=== PATIENT | female | born 1970 | race Caucasian/White ===

== ENCOUNTER 2017-08-18 19:25 | Emergency (ER) | payer BC, OTHER ==
[~2017-08-18] VITALS: Ht 160 cm; Wt 70.3 kg
[~2017-08-18 19:25] MED LIST: BIOTIN PO; CALCIUM600 MG PO; CELEXA20 MG PO; CRANBERRY PO; GABAPENTIN100 MG PO; KEFLEX500 MG PO; LEXAPRO10 MG PO; LOVENOX60 MG/0.6 SC; MULTIVITAMINS1 EAC7 PO; NORCO 7.5-3251 EACH PO; OMEPRAZOLE20 MG PO; VITAMIN D3 PO
[2017-08-18] MEDS ORDERED: KETOROLAC TROMETHAMINE 60 MG/2 ML VIAL IM ONE (20:30)
--- NOTE | 2017-08-18 21:36 | Diagnostic Imaging Report ---
EXAM: LOWER LEG RIGHT, AP and lateral, 2 views DATE: 08/18/2017 8:28 PM Time stamp on exam: 2035 INDICATION: Fall, right lower leg pain COMPARISON: None FINDINGS: BONES: No acute fractures. JOINTS: No malalignment. SOFT TISSUES: Normal IMPRESSION: No right tibia or fibular fracture. Signed by: Dr. Jacinta Armijo M.D. on 08/18/2017 9:32 PM
--- NOTE | 2017-08-18 21:37 | Diagnostic Imaging Report ---
EXAM: KNEE LEFT THREE VIEWS, AP, crosstable lateral and oblique, 3 views DATE: 08/18/2017 8:28 PM Time stamp on exam: 2036 hours INDICATION: Left knee pain COMPARISON: None FINDINGS: BONES: No acute fractures. JOINTS: No malalignment. SOFT TISSUES: Normal IMPRESSION: No evidence of a left knee fracture Signed by: Dr. Jacinta Armijo M.D. on 08/18/2017 9:34 PM
--- NOTE | 2017-08-18 21:40 | Diagnostic Imaging Report ---
EXAM: THORACIC SP 2V, AP and lateral DATE: 08/18/2017 8:28 PM Time stamp on exam: 2101 hours INDICATION: Fall, upper back pain COMPARISON: None FINDINGS: BONES: The alignment is within normal limits. No acute displaced fractures. No lytic or blastic lesions. DISCS: Mild multilevel degenerative changes. JOINTS: The facet joints are unremarkable. SOFT TISSUES: Surgical clips project over the left upper quadrant of the abdomen. IMPRESSION: No acute thoracic spine radiographic findings. Signed by: Dr. Jacinta Armijo M.D. on 08/18/2017 9:37 PM
--- NOTE | 2017-08-18 21:43 | Diagnostic Imaging Report ---
EXAM: HIP LEFT 2-3 VW (+/- PELVIS) DATE: 08/18/2017 9:27 PM Time stamp on exam: 2126 hours INDICATION: Fall, pain in left hip COMPARISON: None FINDINGS: BONES: No acute fractures. JOINTS: Facet arthropathy of the lower lumbar spine. Mild degenerative changes of the bilateral hips. SOFT TISSUES: Normal IMPRESSION: No evidence of a pelvic or left hip fracture. Signed by: Dr. Jacinta Armijo M.D. on 08/18/2017 9:40 PM
== END 2017-08-18 22:08 | disposition home or self-care (01) ==
LOC: ER 19:25
DX: S13.4XXA Sprain of ligaments of cervical spine, initial encounter (principal); W01.0XXA Fall on same level from slipping, tripping and stumbling without subsequent striking against object, initial encounter; Y92.89 Other specified places as the place of occurrence of the external cause; S80.02XA Contusion of left knee, initial encounter; S70.02XA Contusion of left hip, initial encounter; S80.11XA Contusion of right lower leg, initial encounter
CPT/HCPCS: 72072; 73502; 73562; 73590; 96372; 99283; J1885

== ENCOUNTER → 2017-09-19 | Outpatient (CLI) | payer BC ==
[2017-09-19 15:17] LABS: MAGNESIUM 1.8 MG/DL (1.3-2.1); PHOSPHORUS 3.5 MG/DL (2.3-4.7)
== END ==
LOC: LAB 14:40
PROVIDERS: ATTEND Family Medicine
DX: G47.62 Sleep related leg cramps (principal)
CPT/HCPCS: 36415; 83735; 84100

== ENCOUNTER → 2017-09-26 | Outpatient (CLI) | payer BC ==
--- NOTE | 2017-09-26 16:00 | Diagnostic Imaging Report ---
History: Chronic back pain Comparison studies: X-ray of the thoracic spine 08/18/2017 Technique: Cervical: Sagittal T2, T1 and IR, axial T1. Postcontrast axial and sagittal T1 and, axial T2. Thoracic: Sagittal T2, T1 and IR. Axial T1 and, axial T2. Intravenous contrast: None Findings: Alignment: Normal cervical lordosis. Normal thoracic kyphosis. No scoliosis. Cervicomedullary junction: Patent foramen magnum. No Chiari one malformation. Soft tissues: No T2 hyperintense inflammatory changes. Partially visualized 1.2 cm cyst at the left kidney upper pole. Spinal cord: Normal from the foramen magnum to the tip of the conus at T12-L1 Vertebrae: Normal in height and signal intensity. No fractures, infection or neoplasm. Degenerative changes: Cervical spine: C2-C3: No abnormalities. C3-C4: No abnormalities. C4-C5: Central disc osteophyte complex results in mild canal stenosis without significant foraminal narrowing C5-C6: Disc degeneration with loss of T2 signal. Central disc osteophyte complex with mild impression on the thecal sac and without significant foraminal narrowing C6-C7: Small central disc osteophyte, with mild impression on the thecal sac without significant foraminal narrowing C7-T1: No abnormalities. Thoracic spine: 1. At T4-T5 left central disc protrusion with patent canal and foramina. At T9-10 right central small disc protrusion indents the thecal sac without significant canal stenosis or foraminal narrowing. At T10-11 right subarticular disc fusion indents the thecal sac causing mild stenosis. 2. Disc degeneration with loss of T2 signal from T1 through T12. Multiple small Schmorl nodes at the medial lower thoracic spine. 3. Grossly patent canal and foramina. IMPRESSION: 1. No acute cervical or thoracic abnormality. 2. Small central disc osteophyte complex from C4 through C7 results in mild impression on the thecal sac without significant canal stenosis or foraminal narrowing. 3. Small disc protrusions at T4-5 T9-10 and T10-11 without significant canal stenosis or foraminal narrowing. Diffuse disc degeneration of the thoracic spine as detailed above. Signed by: DR Zeferino Beal M.D. on 09/26/2017 3:57 PM
== END ==
LOC: MRI 13:36
PROVIDERS: ATTEND Family Medicine
DX: G47.62 Sleep related leg cramps (principal); M54.12 Radiculopathy, cervical region; G62.9 Polyneuropathy, unspecified
CPT/HCPCS: 72141; 72146

== ENCOUNTER → 2017-10-01 | Outpatient (CLI) | payer BC ==
--- NOTE | 2017-10-01 13:15 | Diagnostic Imaging Report ---
TECHNIQUE: Magnetic resonance imaging of the LEFT HIP was performed WITHOUT injected contrast. HISTORY: Left hip pain COMPARISON: None available. FINDINGS: Bone: No focal or infiltrative bone marrow replacing abnormality. No osteonecrosis or acute fracture. Femoroacetabular Joint: Acetabular labrum: No displaced labral tear. Articular Cartilage: No focal defect. Muscle and tendons: Insertional tendinopathy of the gluteal tendons on the greater trochanter with partial tearing of the gluteus minimus. Soft tissues: Otherwise unremarkable. IMPRESSION: Insertional tendinopathy of the left gluteal tendons on the greater trochanter with partial tearing of the gluteus minimus. Signed by: Dr. Uriel Hall M.D. on 10/01/2017 1:11 PM
--- NOTE | 2017-10-02 09:00 | Diagnostic Imaging Report ---
Exam: Lumbar spine MRI without IV contrast History: Polyneuropathy. Comparison studies: None Technique: Sagittal, axial and coronal T2, sagittal T1, sagittal STIR and axial T2 FS. Intravenous contrast: None Findings: Number of lumbar vertebral bodies: 5. Alignment: Normal lordosis. Mild lumbar curvature convex to the left centered at L3-L4. Soft tissues: No T2 hyperintense inflammatory changes. A 1.4 cm T2 hyperintense lesion situated between the left kidney and spleen is most likely a cyst. Paraspinal muscles: No signal abnormalities. Well-preserved. No atrophic changes Lower thoracic cord: Normal in signal and morphology. The tip of the conus is at L1. Cauda equina: No masses. No arachnoiditis. Vertebrae: No compression fractures, infection or neoplasm. Mild sclerotic changes along the inferior T11 endplate along the supramarginal Schmorl's node. Degenerative changes: Included thoracic spine: Right central disc extrusion at T10-T11 and this the thecal sac and results in mild canal stenosis. L1-L2: No abnormalities L2-L3: No abnormalities L3-L4: Mild bilateral facet arthrosis. Patent canal and foramina. L4-L5: Symmetric disc bulge and mild to moderate bilateral facet arthrosis without significant canal or foraminal stenosis. L5-S1: Moderately degenerated disc with loss of disc height and loss of T2 disc signal. Grade 1 anterolisthesis of L5 on S1 with associated uncovered disc/disc bulge and moderate bilateral facet arthrosis with mild left foraminal stenosis. No canal or right foraminal stenosis. IMPRESSION: 1. Grade 1 L5 degenerative spondylolisthesis with moderately degenerated disc and mild left foraminal stenosis L5-S1. 2. Facet arthrosis from L3 to S1. 3. Mild canal stenosis at T10-T11 due to a disc protrusion. 4. No lumbar canal stenosis or nerve root impingement. Signed by: Dr. David Irizarry M.D. on 10/02/2017 8:56 AM
== END ==
LOC: MRI 09:31
PROVIDERS: ATTEND Family Medicine
DX: M25.552 Pain in left hip (principal); G47.62 Sleep related leg cramps; G62.9 Polyneuropathy, unspecified
CPT/HCPCS: 72148

== ENCOUNTER 2017-10-15 12:30 | Outpatient (RCR) | payer BC | END 2017-10-18 | LOC: PT 12:30 | PROVIDERS: ATTEND Neurological Surgery | DX: M51.24 Other intervertebral disc displacement, thoracic region (principal); M50.220 Other cervical disc displacement, mid-cervical region, unspecified level ==

== ENCOUNTER 2017-11-03 08:00 | Outpatient (RCR) | payer BC | END 2017-11-17 | LOC: PT 08:00 | PROVIDERS: ATTEND Neurological Surgery | DX: M51.24 Other intervertebral disc displacement, thoracic region (principal); M50.220 Other cervical disc displacement, mid-cervical region, unspecified level ==

== ENCOUNTER → 2018-02-25 | Outpatient (CLI) | payer BC ==
[2018-02-25 06:46] LABS: BASOPHILS % 0.5 % (0.0-1.0); EOSINOPHILS # (AUTO) 0.2 (0.0-0.4); EOSINOPHILS % 3.1 % (0.0-6.0); HEMATOCRIT 37.2 % (34.2-44.1); HEMOGLOBIN 11.8 g/dL (12.0-16.0); LYMPHOCYTES # (AUTO) 1.9 (1.0-3.2); LYMPHOCYTES % 31.2 % (18.0-39.1); MEAN CORPUSCULAR HEMOGLOBIN 28.5 pg (28-32); MEAN CORPUSCULAR HGB CONC 31.7 g/dL (31-35); MEAN CORPUSCULAR VOLUME 89.9 fL (81-99); MONOCYTES # (AUTO) 0.6 (0.2-0.8); MONOCYTES % 8.8 % (4.4-11.3); NEUTROPHILS # (AUTO) 3.5 (2.1-6.9); NEUTROPHILS % 56.2 % (38.7-80.0); PLATELET COUNT 364 x10e3/uL (140-360); RED BLOOD COUNT 4.14 x10e6/uL (3.6-5.1)
[2018-02-25 07:09] LABS: ALANINE AMINOTRANSFERASE 13 IU/L (0-55); ALBUMIN 3.6 g/dL (3.5-5.0); ALKALINE PHOSPHATASE 51 IU/L (40-150); ANION GAP 12.2 mmol/L (8-16); BLOOD UREA NITROGEN 19 mg/dL (7-26); BUN/CREATININE RATIO 25 (6-25); CALCIUM 9.2 mg/dL (8.4-10.2); CARBON DIOXIDE 29 mmol/L (22-29); CHLORIDE 107 mmol/L (98-107); CHOL/HDL RATIO 3.3 (3.0-3.6); CHOLESTEROL 239 MD/DL (0-199); CREATININE, SERUM 0.76 mg/dL (0.57-1.11); EST GLOMERULAR FILTRATION RATE > 60 ML/MIN (60-); GLUCOSE 87 mg/dL (74-118); HDL CHOLESTEROL 72 MG/DL (40-60); LDL CHOLESTEROL 139 MG/DL (60-130); POTASSIUM 4.2 mmol/L (3.5-5.1); SODIUM 144 mmol/L (136-145); TRIGLYCERIDES 142 MG/DL (0-149)
[2018-02-25 07:29] LABS: THYROID STIMULATING HORMONE 1.693 uIU/mL (0.350-4.940)
== END | disposition home or self-care (01) ==
LOC: LAB 06:27 → EDSTATUS 03-05 11:02
PROVIDERS: ATTEND Family Medicine
DX: F98.8 Other specified behavioral and emotional disorders with onset usually occurring in childhood and adolescence (principal); F32.9 Major depressive disorder, single episode, unspecified; E53.8 Deficiency of other specified B group vitamins; E55.9 Vitamin D deficiency, unspecified
CPT/HCPCS: 36415; 80053; 80061; 82306; 82607; 84443; 85025

== ENCOUNTER 2018-07-29 05:46 | Emergency (ER) | payer BC, OTHER ==
[~2018-07-29] VITALS: Ht 160 cm; Wt 70.3 kg
[2018-07-29] MEDS ORDERED: DEXAMETHASONE SOD PHOS 10 MG/1 ML VIAL IM ONE (06:00)
[2018-07-29 06:29] LABS: COLOR,URINE YELLOW (YELLOW)
[2018-07-29 06:30] LABS: CLARITY,URINE SL CLOUDY (CLEAR); LEUKOCYTE ESTERASE ,URINE TRACE (NEGATIVE); NITRITE,URINE NEGATIVE (NEGATIVE); PROTEIN,URINE DIPSTICK NEGATIVE (NEGATIVE)
[2018-07-29 06:31] LABS: BILIRUBIN,URINE NEGATIVE (NEGATIVE); KETONES,URINE TRACE (NEGATIVE); URINE UROBILINOGEN 0.2 mg/dL (0.2 - 1)
--- NOTE | 2018-07-29 06:39 | Diagnostic Imaging Report ---
CHEST 2 VIEWS, Technique: CHEST 2 VIEWS Comparison: None Clinical history: Cough, congestion DISCUSSION: Calcified right lung granuloma. Otherwise unremarkable appearance of the heart, mediastinum, lungs and pleural spaces. Clips overlie the left upper quadrant. IMPRESSION: No acute abnormality Signed by: Dr Sakina Oneal MD on 07/29/2018 6:35 AM
[2018-07-29] MEDS ORDERED: LIDOCAINE HCL 1% LOCAL INJ 20 ML VIAL ONE (06:40)
[2018-07-29 06:42] LABS: WBC,URINE (MAN) 21-50 /HPF (0-5)
[2018-07-29 06:43] LABS: BACTERIA,URINE FEW /HPF; EPITHELIAL CELLS,URINE MODERATE /LPF; MUCUS,URINE MODERATE (RARE)
[2018-07-29] MEDS ORDERED: CEFTRIAXONE SOD 1 GM VIAL IM ONE (06:45)
== END 2018-07-29 06:53 | disposition home or self-care (01) ==
LOC: ER 05:46
DX: R05 Cough (principal); R11.0 Nausea; R10.9 Unspecified abdominal pain; N30.91 Cystitis, unspecified with hematuria
CPT/HCPCS: 71046; 81001; 83518; 87070; 99283; J0696; J1100; J2001

== ENCOUNTER 2018-08-01 09:45 | Emergency (ER) | payer BC ==
[~2018-08-01] VITALS: Ht 160 cm; Wt 70.3 kg
--- NOTE | 2018-08-01 10:24 | NUR ---
PATIENT LEFT BEFORE SIGNING DISCHARGE INSTRUCTIONS. PATRICIA Presley SPOKE WITH HER IN TRIAGE REGARDING PLAN OF CARE
== END 2018-08-01 10:32 | disposition home or self-care (01) ==
LOC: ER 09:45
DX: R05 Cough (principal); J02.9 Acute pharyngitis, unspecified; J30.2 Other seasonal allergic rhinitis
CPT/HCPCS: 99282

== ENCOUNTER 2018-08-05 19:20 | Emergency (ER) | payer BC ==
[~2018-08-05] VITALS: Ht 160 cm; Wt 70.3 kg
[2018-08-05] MEDS ORDERED: SODIUM CHLORIDE 0.9% 1000ML 1,000 ML IV STA (19:22)
[2018-08-05] MEDS ORDERED: CEFTRIAXONE SOD 1 GM/NS 50 ML 50 ML IV ONE (19:45)
[2018-08-05 20:06] LABS: BASOPHILS % 0.4 % (0.0-1.0); EOSINOPHILS # (AUTO) 0.2 (0.0-0.4); EOSINOPHILS % 1.8 % (0.0-6.0); HEMATOCRIT 39.1 % (34.2-44.1); HEMOGLOBIN 12.2 g/dL (12.0-16.0); LYMPHOCYTES # (AUTO) 3.1 (1.0-3.2); LYMPHOCYTES % 36.1 % (18.0-39.1); MEAN CORPUSCULAR HEMOGLOBIN 28.3 pg (28-32); MEAN CORPUSCULAR HGB CONC 31.2 g/dL (31-35); MEAN CORPUSCULAR VOLUME 90.7 fL (81-99); MONOCYTES # (AUTO) 0.5 (0.2-0.8); MONOCYTES % 5.8 % (4.4-11.3); NEUTROPHILS # (AUTO) 4.7 (2.1-6.9); NEUTROPHILS % 55.1 % (38.7-80.0); PLATELET COUNT 356 x10e3/uL (140-360); RED BLOOD COUNT 4.31 x10e6/uL (3.6-5.1); RED CELL DISTRIBUTION WIDTH 14.6 % (11.7-14.4)
[2018-08-05] MEDS ORDERED: ONDANSETRON HCL INJ 2 MG/ML VIAL ONE (20:09)
[2018-08-05 20:12] LABS: BILIRUBIN,URINE NEGATIVE (NEGATIVE); CLARITY,URINE CLEAR (CLEAR); COLOR,URINE YELLOW (YELLOW); KETONES,URINE NEGATIVE (NEGATIVE); LEUKOCYTE ESTERASE ,URINE NEGATIVE (NEGATIVE); NITRITE,URINE NEGATIVE (NEGATIVE); PROTEIN,URINE DIPSTICK NEGATIVE (NEGATIVE); URINE UROBILINOGEN 0.2 mg/dL (0.2 - 1)
[2018-08-05 20:21] LABS: AMORPHOUS SEDIMENT,URINE MODERATE (FEW); BACTERIA,URINE MODERATE /HPF; MUCUS,URINE MODERATE (RARE)
[2018-08-05 20:25] LABS: ALANINE AMINOTRANSFERASE 17 IU/L (0-55); ALBUMIN 3.6 g/dL (3.5-5.0); ALBUMIN/GLOBULIN RATIO 1.1 (0.8-2.0); ALKALINE PHOSPHATASE 61 IU/L (40-150); ANION GAP 12.9 mmol/L (8-16); BLOOD UREA NITROGEN 16 mg/dL (7-26); BUN/CREATININE RATIO 20 (6-25); CALCIUM 8.7 mg/dL (8.4-10.2); CARBON DIOXIDE 29 mmol/L (22-29); CHLORIDE 101 mmol/L (98-107); CREATININE, SERUM 0.79 mg/dL (0.57-1.11); EST GLOMERULAR FILTRATION RATE > 60 ML/MIN (60-); GLUCOSE 80 mg/dL (74-118); POTASSIUM 3.9 mmol/L (3.5-5.1); SODIUM 139 mmol/L (136-145)
[2018-08-06] MEDS ORDERED: PHENAZOPYRIDINE HCL 100 MG TAB PO SCH (09:00)
== END 2018-08-05 21:33 | disposition home or self-care (01) ==
LOC: ER 19:20
DX: R33.9 Retention of urine, unspecified (principal); R33.0 Drug induced retention of urine; F41.9 Anxiety disorder, unspecified; Z98.84 Bariatric surgery status
CPT/HCPCS: 36415; 51700; 80053; 81001; 81025; 85025; 87086; 99283; J0696; J2405; J7030

== ENCOUNTER 2018-08-07 16:28 | Emergency (ER) | payer BC ==
[~2018-08-07] VITALS: Ht 160 cm; Wt 66.2 kg
== END 2018-08-07 16:51 | disposition home or self-care (01) ==
LOC: ER 16:28
DX: R30.0 Dysuria (principal); N34.2 Other urethritis
CPT/HCPCS: 99282

== ENCOUNTER → 2018-08-20 | Outpatient (CLI) | payer BC ==
--- NOTE | 2018-08-20 11:43 | Diagnostic Imaging Report ---
MRI of the cervical, thoracic and lumbar spine. History: Neck and low back pain, bladder incontinence Comparison studies: MRI of the thoracic spine 09/26/2017, MRI of the lumbar spine report 10/01/2017 Technique: Cervical spine: Thoracic spine: Sagittal T1, T2, STIR, axial T1 and T2 Lumbar spine: Sagittal T1, T2, STIR, axial T2 and spin density oblique Findings: Number of lumbar vertebral bodies:5. Alignment: Normal cervical lordosis. Normal thoracic kyphosis, anterolisthesis of L5 over S1. Normal remaining lumbar lordosis. Minimal lumbar levoscoliosis. Lower thoracic cord: Normal in signal and morphology. The tip of the conus is at T12-L1 . Soft tissues: No T2 hyperintense inflammatory changes. Partially visualized 1.2 cm cyst at the left kidney upper pole, stable Paraspinal muscles: Well preserved. Vertebrae: Normal in height and signal intensity. No compression fractures, infection or neoplasm. Degenerative changes: Cervical spine: At C4-C5, central disc osteophyte complex results in mild canal stenosis without significant foraminal narrowing, stable C5-C6, disc degeneration with loss of T2 signal. Central disc osteophyte complex with mild impression on the thecal sac and without significant foraminal narrowing, STIR C6-C7, small central disc osteophyte, with mild impression on the thecal sac without significant foraminal narrowing, stable Thoracic spine: At T4-T5, left central disc protrusion with patent canal and foramina, stable. At T9-10 right central small disc protrusion indents the thecal sac without significant canal stenosis or foraminal narrowing, stable. At T10-11, right subarticular disc extrusion indents the thecal sac causing mild stenosis, stable. Disc degeneration with loss of T2 signal from T1 through T12. Multiple small Schmorl nodes at the mid and lower thoracic spine, stable. Lumbar spine: Disk spaces: Mild disc degeneration with loss of T2 signal and decreased anterior intervertebral space at L5-S1. The remaining lumbar spine discs are normal in height and signal intensity. Disk herniations: None Spinal canal: Patent Foramina: Mild left foraminal narrowing at L5-S1 secondary to grade 1 anterolisthesis and disc bulge. Mild facet hypertrophy at the lower lumbar spine. IMPRESSION: Cervical spine: 1. No change from previous examination. 2. Disc degeneration from C4 through C7 without significant foraminal narrowing and mild canal stenosis at C5-6 and C6-7. Thoracic spine: 1. No significant change from previous examination. 2. Left central disc protrusion at T4-T5 with patent canal and foramina, stable. Right central small disc protrusion at T9-10 indents the thecal sac without significant canal stenosis or foraminal narrowing. Right subarticular disc extrusion indents the thecal sac causing mild right canal stenosis, stable. No spinal cord compression. 3. Stable degeneration with loss of T2 signal from T1 through T12. Multiple small Schmorl nodes at the medial lower thoracic spine. 4. Grossly patent canal and foramina. Lumbar spine: 1. No change from previous examination. 2. Mild left foraminal narrowing at L5-S1 secondary to mild grade 1 anterolisthesis and degenerative changes. The remaining canal and foramina are patent. 3. Moderate disc degeneration at L5-S1 without endplate changes. Signed by: DR Zeferino Beal M.D. on 08/20/2018 11:39 AM
== END ==
LOC: MAMMO 07:49
PROVIDERS: ATTEND Family Medicine
DX: M54.2 Cervicalgia (principal); M54.6 Pain in thoracic spine; M54.5 Low back pain; R32 Unspecified urinary incontinence; M51.44 Schmorl's nodes, thoracic region
CPT/HCPCS: 72141; 72146; 72148

== ENCOUNTER → 2018-12-02 | Outpatient (CLI) | payer BC ==
[2018-12-02 13:35] LABS: BASOPHILS % 0.5 % (0.0-1.0); EOSINOPHILS # (AUTO) 0.1 (0.0-0.4); EOSINOPHILS % 1.5 % (0.0-6.0); HEMATOCRIT 35.2 % (34.2-44.1); HEMOGLOBIN 10.8 g/dL (12.0-16.0); LYMPHOCYTES % 26.7 % (18.0-39.1); MEAN CORPUSCULAR HEMOGLOBIN 27.9 pg (28-32); MEAN CORPUSCULAR HGB CONC 30.7 g/dL (31-35); MONOCYTES # (AUTO) 0.6 (0.2-0.8); MONOCYTES % 7.9 % (4.4-11.3); NEUTROPHILS # (AUTO) 4.7 (2.1-6.9); PLATELET COUNT 348 x10e3/uL (140-360); RED BLOOD COUNT 3.87 x10e6/uL (3.6-5.1); RED CELL DISTRIBUTION WIDTH 14.9 % (11.7-14.4)
[2018-12-02 14:01] LABS: ALBUMIN 3.9 g/dL (3.5-5.0); ALBUMIN/GLOBULIN RATIO 1.1 (0.8-2.0); ANION GAP 12.7 mmol/L (8-16); CALCIUM 9.4 mg/dL (8.4-10.2); CREATININE, SERUM 1.02 mg/dL (0.57-1.11); POTASSIUM 3.7 mmol/L (3.5-5.1)
[2018-12-02 14:20] LABS: THYROID STIMULATING HORMONE 0.77 uIU/mL (0.350-4.940)
[2018-12-03 07:36] LABS: CHOL/HDL RATIO 3.2 (3.0-3.6)
== END ==
LOC: LAB 13:19
PROVIDERS: ATTEND Family Medicine
DX: R07.9 Chest pain, unspecified (principal); R42 Dizziness and giddiness
CPT/HCPCS: 36415; 80053; 80061; 82607; 83540; 84443; 84466; 85025

== ENCOUNTER → 2018-12-29 | Outpatient (CLI) | payer BC ==
--- NOTE | 2018-12-29 20:37 | Myoview Stress Test ---
DATE OF STUDY: 12/29/2018 09:16:00 Stress Test - Treadmill ONLY PROCEDURE INDICATION: Chest pain, palpitations, and syncope. INTERPRETING AND SUPERVISING PHYSICIAN: Navi Rose MD, Interventional Cardiology PROCEDURE PERFORMED: Single day rest/stress test technetium myocardial perfusion SPECT stress test. INTERPRETATION: At rest, blood pressure 111/72 and heart rate 58. Resting EKG shows sinus bradycardia with poor R-wave progression in precordial leads. After undergoing Harrison protocol treadmill stress test, at peak heart rate in stage IV of Harrison protocol was 140 beats per minute and blood pressure at peak was 186/121. The patient did not describe any exertional chest discomfort. EKG did not reveal any significant ST changes or arrhythmias throughout stress or recovery. 1 minute heart rate recovery was good. Myocardial perfusion reveals a small-sized mild severity apical anterior stress-induced perfusion defect. Gated images demonstrate preserved left ventricular systolic function, normal regional wall motion, and left ventricular ejection fraction of 67%. CONCLUSIONS: 1. Normal hemodynamic response to treadmill stress test. 2. Normal electrocardiographic response to treadmill stress. 3. Good exercise capacity. 4. Abnormal myocardial perfusion with small sized apical anterior stress-induced perfusion defect. 5. Preserved left ventricular systolic function with normal regional wall motion and left ventricular ejection fraction of 67%. Navi Rose MD AFV/MODL /[id number]
== END ==
LOC: NM 09:08
PROVIDERS: ATTEND Internal Medicine Cardiovascular Disease
DX: R07.9 Chest pain, unspecified (principal); R00.2 Palpitations; R55 Syncope and collapse
CPT/HCPCS: 78452; 93017; A9502

== ENCOUNTER 2019-01-18 18:34 | Observation (INO) | payer BC ==
[~2019-01-18] VITALS: Ht 160 cm; Wt 72.6 kg
[2019-01-18] MEDS ORDERED: SODIUM CHLORIDE 0.9% 1000ML 1,000 ML ONE (19:05)
[2019-01-18] MEDS ORDERED: SODIUM CHLORIDE 0.9% 1000ML 1,000 ML IV ONE (19:15)
[2019-01-18] MEDS ORDERED: KETOROLAC TROMETHAMINE 30 MG/ML VIAL IV NR (19:15)
[2019-01-18] MEDS ORDERED: ONDANSETRON HCL INJ 2MG/ML 2ML 2 MG/ML VIAL IV PRN ×2 (19:15→20:15)
[2019-01-18 19:35] LABS: BASOPHILS % 0.4 % (0.0-1.0); EOSINOPHILS # (AUTO) 0.2 (0.0-0.4); EOSINOPHILS % 3.1 % (0.0-6.0); HEMATOCRIT 34.3 % (34.2-44.1); HEMOGLOBIN 10.7 g/dL (12.0-16.0); LYMPHOCYTES # (AUTO) 2.6 (1.0-3.2); LYMPHOCYTES % 34.8 % (18.0-39.1); MEAN CORPUSCULAR HEMOGLOBIN 27.7 pg (28-32); MEAN CORPUSCULAR HGB CONC 31.2 g/dL (31-35); MEAN CORPUSCULAR VOLUME 88.9 fL (81-99); MONOCYTES # (AUTO) 0.5 (0.2-0.8); MONOCYTES % 7.3 % (4.4-11.3); PLATELET COUNT 336 x10e3/uL (140-360); RED BLOOD COUNT 3.86 x10e6/uL (3.6-5.1); RED CELL DISTRIBUTION WIDTH 14.9 % (11.7-14.4)
--- NOTE | 2019-01-18 19:50 | Diagnostic Imaging Report ---
EXAMINATION: CHEST 2 VIEWS INDICATION: chest pain COMPARISON: Chest 07/29/2018 FINDINGS: PA and lateral views TUBES and LINES: None. LUNGS: Lungs are well inflated. Calcified granuloma right upper lobe.. There is no evidence of pneumonia or pulmonary edema. PLEURA: No pleural effusion or pneumothorax. HEART AND MEDIASTINUM: The cardiomediastinal silhouette is unremarkable. BONES AND SOFT TISSUES: No acute osseous lesion. Soft tissues are unremarkable. UPPER ABDOMEN: No free air under the diaphragm. Surgical clips in the left upper abdomen. IMPRESSION: No acute thoracic abnormality. Signed by: Basil Aguilar MD on 01/18/2019 7:46 PM
[2019-01-18 19:51] LABS: ALANINE AMINOTRANSFERASE 13 IU/L (0-55); ALBUMIN 4.1 g/dL (3.5-5.0); ALBUMIN/GLOBULIN RATIO 1.3 (0.8-2.0); ALKALINE PHOSPHATASE 53 IU/L (40-150); ANION GAP 13.4 mmol/L (8-16); BLOOD UREA NITROGEN 18 mg/dL (7-26); BUN/CREATININE RATIO 22 (6-25); CALCIUM 9.2 mg/dL (8.4-10.2); CARBON DIOXIDE 27 mmol/L (22-29); CHLORIDE 103 mmol/L (98-107); CREATININE, SERUM 0.81 mg/dL (0.57-1.11); EST GLOMERULAR FILTRATION RATE > 60 ML/MIN (60-); GLUCOSE 91 mg/dL (74-118); POTASSIUM 3.4 mmol/L (3.5-5.1); SODIUM 140 mmol/L (136-145)
--- NOTE | 2019-01-18 20:01 | Diagnostic Imaging Report ---
History: Headaches. Comparison studies: None Technique: Axial images were obtained from the skull base to the vertex. Coronal and sagittal reconstructions obtained from the axial data. Dose modulation, iterative reconstruction, and/or weight based adjustment of the mA/kV was utilized to reduce the radiation dose to as low as reasonably achievable. Findings: Scalp/skull: No abnormalities. No fractures, blastic or lytic lesions. Extra-axial spaces: No masses. No fluid collections. Brain sulci: Appropriate for age. Ventricles: Normal in size and configuration. No hydrocephalus. Parenchyma: No abnormal densities. No masses, hemorrhage, acute or chronic cortical vascular insults. Sellar/suprasellar region: No abnormalities Craniocervical junction: Patent foramen magnum. No Chiari one malformation. IMPRESSION: No abnormalities . Signed by: DR Zeferino Beal M.D. on 01/18/2019 7:58 PM
[2019-01-18 20:40] LABS: CREATINE KINASE MB 1.1 ng/mL (0-5.0)
[2019-01-18] MEDS ORDERED: ONDANSETRON HCL INJ 2MG/ML 2ML 2 MG/ML VIAL IV NR (22:00)
[2019-01-18] MEDS ORDERED: MORPHINE SULFATE INJ 4 MG/ML INJ 1ML IV PRN (22:00)
[2019-01-18] MEDS: SODIUM CHLORIDE 0.9% 1000ML 1,000 ML IV SCH (22:17)
[2019-01-18 22:33] VITALS: BP 119/75
--- NOTE | 2019-01-18 22:33 | NUR ---
Patient arrived via stretcher from ER. Oriented to room, environment and call light. Instructed to call for onset of pain or SOB. Call light within reach. Will continue to monitor.
[2019-01-18 22:49] VITALS: BP 117/75
[2019-01-19] VITALS (10 sets, daily range): BP systolic 86–128; BP diastolic 52–75
--- NOTE | 2019-01-19 01:44 | NUR ---
Tele called and reported patient HR dropped to 46BPM. Patient asymptomatic, no SOB. Will continue to monitor.
--- NOTE | 2019-01-19 03:15 | NUR ---
Patient C/O pain to chest, as dull pressure, 5/10. Called MD Dr Chavez and notified. BP 121/75,HR 45-52. New orders received. Patient updated on POC.
[2019-01-19] MEDS: MORPHINE SULFATE INJ 4 MG/ML INJ 1ML IV PRN ×3 (03:20→13:46)
[2019-01-19] MEDS: ONDANSETRON HCL INJ 2MG/ML 2ML 2 MG/ML VIAL IV PRN ×3 (03:20→13:46)
[2019-01-19 03:53] LABS: CREATINE KINASE 78 IU/L (29-168)
[2019-01-19] MEDS ORDERED: ADDERALL 15 MG15 MG PO (04:02)
[2019-01-19] MEDS ORDERED: VITAMIN E400 UNI1 PO (04:02)
[2019-01-19] MEDS ORDERED: WELLBUTRIN SR150 MG PO (04:02)
[2019-01-19] MEDS ORDERED: BENADRYL25 M1 PO (04:02)
[2019-01-19] MEDS ORDERED: METOPROLOL TART25 MG PO (04:02)
[2019-01-19] MEDS ORDERED: NORCO 7.5-3251 EACH PO (04:02)
[2019-01-19] MEDS ORDERED: APPLE CIDER VI1 EAC1 PO (04:02)
[2019-01-19] MEDS ORDERED: FOLIC ACID1 MG PO (04:02)
[2019-01-19] MEDS ORDERED: SENNOSIDES8.6 MG PO (04:02)
[2019-01-19] MEDS ORDERED: GINGER PO (04:02)
[2019-01-19] MEDS ORDERED: COLACE100 MG PO (04:02)
[2019-01-19] MEDS ORDERED: METHACARBAMOL PO (04:02)
[2019-01-19] MEDS ORDERED: ASPIRIN EC81 MG PO (04:02)
[2019-01-19] MEDS ORDERED: tumeric curcumin PO (04:02)
[2019-01-19] MEDS: SODIUM CHLORIDE 0.9% 1000ML 1,000 ML IV SCH ×2 (04:04→18:46)
--- NOTE | 2019-01-19 06:28 | NUR ---
Spoke with Dr Calderon regarding consult: Would like to do heart cath today if patient agreeable; then NPO for breakfast and will see this morning.
--- NOTE | 2019-01-19 06:30 | NUR ---
Patient in bed resting. No issues or concerns. Updated on POC for NPO for breakfast. Call light within reach. Will continue to monitor.
--- NOTE | 2019-01-19 07:00 | NUR ---
Call from Dr Calderon: New orders received.
--- NOTE | 2019-01-19 08:36 | NUR ---
Informed consent obtained for heart cath today per MD Calderon. Pt aware of plan of care. Pt stated procedure explained to her. A&O x3, resp WNL.
[2019-01-19 11:02] LABS: CREATINE KINASE 73 IU/L (29-168)
[2019-01-19] MEDS ORDERED: HYDROCODONE/APAP 10MG-325MG TAB PO PRN (12:45)
--- NOTE | 2019-01-19 13:01 | NUR ---
DISCUSSED IN BARRIER ROUNDS, PT HAVING RT HEART CATH BY DR SÁNCHEZ AT 230
--- NOTE | 2019-01-19 14:00 | NUR ---
Visit made by the Spiritual Care Department Pastoral Visitor, Karoline Gonzalez. PV provided pastoral presence, prayer, hospitality, and supportive listening. Pastoral Visitor informed pt/family of the scope of [facility] [employer] and availability. MALKA FERGUSON [employer] Spiritual Care Department O: [phone] Pager: [phone] ([phone] number calling from)
[2019-01-19] MEDS ORDERED: LIDOCAINE HCL 2% LOCAL 20 ML VIAL ONE ×2 (15:56→16:08)
[2019-01-19] MEDS ORDERED: HEPARIN SOD/SOD CHLORIDE 2,000 ML ONE (15:57)
[2019-01-19] MEDS ORDERED: IOPAMIDOL 370 MG/ML 200 ML INFUS..BTL INJ ONE ×2 (15:57→16:08)
[2019-01-19] MEDS ORDERED: MIDAZOLAM HCL 2 MG/2 ML VIAL ONE (16:07)
[2019-01-19] MEDS ORDERED: VERAPAMIL HCL 2.5 MG/ML 2 ML VIAL ONE (16:07)
[2019-01-19] MEDS ORDERED: FENTANYL CITRATE/PF 100MCG/2 ML INJ ONE (16:07)
[2019-01-19] MEDS ORDERED: HEPARIN SOD (PORCINE) 1000 UNIT/ML 30ML ONE (16:07)
[2019-01-19] MEDS ORDERED: NITROGLYCERIN/D5W 200 MCG/ML 250 ML ONE (16:08)
[2019-01-19] MEDS ORDERED: SODIUM CHLORIDE 0.9% 1000ML 1,000 ML ONE (16:08)
--- NOTE | 2019-01-19 16:54 | Consultation ---
DATE OF CONSULTATION: 01/19/2019 Cardiology Consultation CONSULTING PHYSICIAN: Navi Rose MD, Interventional Cardiology. REASON FOR CONSULTATION: Chest pain. HISTORY OF PRESENT ILLNESS: Ms. Lim is a pleasant 48-year-old woman with history of migraines, episodes of palpitations, atypical chest pain, fleeting in nature, sharp, lasting seconds at a time, radiating to back, mild to moderate severity with associated lightheadedness episodes occurring while driving in the car and most recently while she was having an episode of migraine, for which she came into the hospital with severe headaches, nausea, and status post Imitrex now. She continues to feel uncomfortable with her headache care. Her chest discomfort has resolved. Serial cardiac enzymes have been negative. Her EKG shows sinus bradycardia, otherwise no significant abnormalities. On telemetry, she reveals sinus bradycardia into the 50s. No arrhythmias observed. She had recent outpatient echocardiogram revealing preserved left ventricular systolic function. No significant valvular abnormalities. She had rare PVCs that seemed associated to the patient's reported symptoms on site monitor and an asymptomatic event of short run of paroxysmal atrial tachycardia. We discussed the possibility of proceeding with a loop recorder should symptoms persist particularly from palpitation or lightheaded standpoint. We had discussed coronary angiogram versus proceeding with further assessment absolute PET myocardial perfusion given atypical chest discomfort and abnormal stress test revealing preserved left ventricular systolic function with LVEF 67% and apical anterior stress-induced perfusion defects or ischemia. We had agreed on proceeding with PET scan, which was being pre-authorized with insurance, however, returned with this discomfort and headache and chest pain on this admission given findings. She would like to proceed with coronary angiogram. Indications, alternatives, risks and benefits have been discussed with the patient as well as family members, who were at bedside. All questions have been answered. The patient voices understanding and agrees to proceed. REVIEW OF SYSTEMS: A 12-system review negative except for as noted above. ALLERGIES: TRAMADOL AND MACROBID. PAST MEDICAL HISTORY: Obesity status post gastric sleeve, migraines. PAST SURGICAL HISTORY: Gastric sleeve. FAMILY HISTORY: Father with CAD and stents, hypertension. Father and grandmother both with heart disease. Has two brothers and one sister. SOCIAL HISTORY: Former smoker, quit in 2016. Otherwise denies binge drinking or drugs. PHYSICAL EXAMINATION: VITAL SIGNS: Temperature 96.5, heart rate 53, respiratory rate 18, blood pressure 101/53, O2 saturation 98% on room air. GENERAL: No acute distress. Alert and active. NECK: No JVD. CHEST: Clear to auscultation. CARDIOVASCULAR: Regular rate and rhythm. Normal S1 and S2. No S3, no S4. No murmurs or rubs. ABDOMEN: Soft, nontender, nondistended. EXTREMITIES: No cyanosis, clubbing, or edema. Warm distal extremities. CARDIOVASCULAR MEDICATIONS: Reviewed. The patient is currently on morphine p.r.n., Zofran p.r.n., saline hydration 75 mL an hour. LABORATORY DATA: Studies reviewed. White blood cell 7.4, hemoglobin 10.7, platelets 336. D-dimer 0.18. Serial cardiac enzymes negative x3. BNP is 26.7. Sodium 140, potassium 3.4, chloride 103, bicarbonate 27, BUN 18, creatinine 0.8, glucose 91, calcium 9.2, total bilirubin 0.3, AST 16, ALT 13, alkaline phosphatase 53, total protein 7.2, albumin 4.1. CT head, no abnormalities and chest x-ray no acute thoracic abnormality. ASSESSMENT: 1. Atypical chest pain with abnormal stress test concerning for coronary artery disease etiology, is here with episode of migraines and atypical chest pain, marked bradycardia and a history of rare PVCs and asymptomatic paroxysmal atrial tachycardia on outpatient telemetry. 2. Preserved left ventricular systolic function. RECOMMENDATIONS: 1. Proceed with coronary angiography and possible coronary intervention. 2. Continue management of migraine per primary services expertise. 3. The patient is anemic. Suggest further evaluation. Navi Rose MD AFJoon/MEGAN /[id number] MTDD
--- NOTE | 2019-01-19 18:30 | NUR ---
Pt meets transfer criteria. right radial/arm assessed for s/s of complication and presence of hematoma. Arm warm, dry, no discolor, and pulses present. Pt denies pain, sob, or need at this time. Family at bedside. Pt tolerated recovery w/o incident. Does posses persistent PATEL that has been present x 2weeks w/o relief per patient. + neurovascular function maintained to right hand at all times. Report provided to Luz PRABHAKAR, review of procedural findings and medications given. Patient drowsy, easily aroused. maintains airway and room air saturations of 98-99%. No gross issues of pressure, pain, pallor or dysrhythmia. IV site patent with NS 0.9% at 100ml/hr by dial-flow. patient hemodynamically stable with hemostasis right radial post TR band removal. dressing CDI w/o s/s of bleeding. patient transferred to [facility] on telemetry w/o incident by [facility] staff - cgf Procedure: DX LHC w/ coronary angiography and LV ventriclogram Sheath puller: Dr. Calderon TR band 10ml Meds Given Intra-Procedure Sedatives Versed - 2 mg Fentanyl - 50 mcg Radial Cocktail IA Heparin - 3000 Units Verapamil - 2.5 mg Nitro - 200mcg Alteplase Fluids Input - 250 Output - dtv Contrast Isovue 370 -60ml
--- NOTE | 2019-01-19 19:00 | NUR ---
Report and walking rounds completed. Patient in bed with family at bedside. Site to right wrist, CDI and no bleeding noted. No issues or concerns. Call light within reach. Will continue to monitor.
--- NOTE | 2019-01-19 19:11 | Operative Report ---
DATE OF PROCEDURE: 01/19/2019 SURGEON: Navi Rose MD PROCEDURE INDICATION: Chest pain concerning for angina pectoris in the setting of previous abnormal stress test with apical anterior segment ischemia and preserved left ventricular systolic function. PROCEDURES PERFORMED: 1. Left heart catheterization. 2. Selective coronary angiogram. ESTIMATED BLOOD LOSS: Less than 15 mL. PROCEDURE COMPLICATIONS: None. PROCEDURE SUMMARY: After consent was obtained, the patient was prepped and draped in a sterile fashion. The right radial site was locally infiltrated with 2% lidocaine and using a single anterior stick, the right radial artery was accessed and a 5- Singaporean outer diameter slender sheath was advanced over wire. A cocktail of 2.5 mg of verapamil, 300 mcg of nitroglycerin, and 5000 units of heparin were administered via the sheath and TIG catheter, 5-Singaporean was advanced over J-tip wire to the proximal ascending aorta were the catheter was used for selective engagement of the left main, as well as the right coronary artery performing angiography to each of these vessels in multiple orthogonal views. Afterwards a pigtail catheter was exchanged over an exchange length J- wire and a pigtail catheter used to cross the aortic valve for hemodynamic pressure and left ventriculogram, this was a 5-Singaporean catheter. At the end of the procedure, TR band was applied to the right radial site achieving adequate hemostasis. FINDINGS: 1. LV pressure was 113/9 with end-diastolic pressure of 17 to 19. 2. Aortic pressure is 110/70. 3. LV-gram reveals preserved left ventricular systolic function, normal regional wall motion, and left ventricular ejection fraction of 55% to 60%. 4. Left main is large in caliber with luminal irregularities giving an LAD and a circumflex. 5. LAD is large in caliber with luminal irregularities. It gives two diagonals and multiple septal perforators. Distal LAD is overall small in caliber and ends in the apical anterior LV segment of myocardium. 6. Circumflex has luminal irregularities. It gives three obtuse marginals of small to medium caliber left posterolateral branch. 7. Right coronary artery is dominant giving conus branch in the proximal segment two RV marginals in the distal segment. There is a focal area of 30% stenosis and the RCA gives terminal RPDA and RPLV both small to medium in caliber. The RPDA goes onto the apex where it co-perfuses the LV apex along with the LAD. Given abnormal stress test findings with apical anterior ischemia, it is felt that the co-perfusion of the apex in association with small caliber distal LAD and underlying mild possibly diffuse CAD may contribute to this abnormal finding. CONCLUSION: 1. Mild CAD. 2. LVEDP, mildly elevated. RECOMMENDATIONS: 1. Wean TR band. 2. Aspirin 81 mg daily, however, pending anemia evaluation. 3. Initiate statin therapy at moderate potency and up titrate as tolerated by patient over outpatient serial followup. 4. I have discussed with patient resting asymptomatic sinus bradycardia and previous rare PVCs and previous asymptomatic spells of paroxysmal atrial tachycardia noted on monitoring as outpatient. If any presyncopal or syncopal spells occur, I have offered further evaluation including implantable loop recorder, so far conservative management is preferred. MD IGGY Mendoza/MEGAN /[id number] MTDD
[2019-01-19] MEDS ORDERED: DIPHENHYDRAMINE HCL 25 MG CAP PO PRN (20:45)
[2019-01-19] MEDS ORDERED: ATORVASTATIN 40 MG TAB PO SCH (21:00)
--- NOTE | 2019-01-20 00:45 | NUR ---
Report given to Irma RN for transfer in care. Patient A&Ox3, mother at bedside. Call light within reach.
[2019-01-20 01:12] VITALS: BP 107/51
--- NOTE | 2019-01-20 01:20 | NUR ---
PATIENT IS ASLEEP, SHE'S EASY TO AROUSE. NO RESPIRATORY DISTRESS OBSERVED, SHE DENIES CHEST PAIN. CALL LIGHT WITHIN EASY REACH, SHE'S INSTRUCTED TO CALL FOR ASSISTANCE NEEDED.
[2019-01-20 04:30] VITALS: BP 112/50
--- NOTE | 2019-01-20 04:30 | NUR ---
CONDITION STABLE WITHOUT ACUTE DISTRESS, PATIENT DENIES CHEST PAIN.
[2019-01-20] MEDS: SODIUM CHLORIDE 0.9% 1000ML 1,000 ML IV SCH (06:00)
--- NOTE | 2019-01-20 07:00 | NUR ---
walking rounds made with slot shift manager nurse, patient aware of change and in no distress. call warren within reach and bed in lowest position.
[2019-01-20 08:00] VITALS: BP 111/72
[2019-01-20 08:10] VITALS: BP 111/72
--- NOTE | 2019-01-20 08:10 | NUR ---
patient alert and oriented with mother at bedside. discharge instructions given at this time, patient verbalized understanding. IV discontinued, catheter in tact and small dressing applied. patient refused wheelchair assistance and will ambulate with assist to personal auto for mother to drive home.
[2019-01-20] MEDS ORDERED: ASPIRIN 81 MG CHEW TAB PO SCH (09:00)
--- NOTE | 2019-01-21 06:47 | Discharge Summary ---
DISCHARGE DIAGNOSIS: Chest pain, rule out myocardial infarction. HISTORY OF PRESENT ILLNESS: The patient is a 48-year-old lady, who presented with some chest pain. She did rule out for SD, was seen by Dr. Calderon, her shovel operator, who actually went ahead and performed a cardiac cath that showed nonobstructive disease. Postprocedure, the patient is doing well, having no further evidence of chest pain, so she was able to be discharged home with continuation of her home medications and follow up with Dr. Calderon in a couple of weeks. Please see hospital chart for full details. MD NELL Mcgowan/MEGAN /[id number]
== END 2019-01-20 08:27 | disposition home or self-care (01) ==
LOC: ER 18:34 → ERHOLD 20:26 → IMCU 22:33
PROVIDERS: ADMIT Internal Medicine; ATTEND Internal Medicine
DX: R07.89 Other chest pain (principal); I25.10 Atherosclerotic heart disease of native coronary artery without angina pectoris; I11.0 Hypertensive heart disease with heart failure; I50.9 Heart failure, unspecified; Z98.84 Bariatric surgery status; Z88.1 Allergy status to other antibiotic agents; Z88.8 Allergy status to other drugs, medicaments and biological substances; E87.6 Hypokalemia; D64.9 Anemia, unspecified; Z82.49 Family history of ischemic heart disease and other diseases of the circulatory system; Z87.891 Personal history of nicotine dependence; G43.909 Migraine, unspecified, not intractable, without status migrainosus; R00.1 Bradycardia, unspecified; E78.00 Pure hypercholesterolemia, unspecified
CPT/HCPCS: 36415 ×2; 70450; 71046; 80053; 82550 ×2; 82553 ×2; 83880; 84484 ×2; 85025; 85379; 93005; 93458; 99284; C1887; G0378 ×3; J1644; J1885; J2001; J2250; J2270 ×2; J2405 ×2; J7030 ×3; Q9967; J3010

== ENCOUNTER → 2019-08-25 | Outpatient (CLI) | payer BC ==
[~2019-08-25] MED LIST changes: +ADDERALL 15 MG15 MG PO; +APPLE CIDER VI1 EAC1 PO; +ASPIRIN EC81 MG PO; +BENADRYL25 M1 PO; +COLACE100 MG PO; +FOLIC ACID1 MG PO; +GINGER PO; +METHACARBAMOL PO; +METOPROLOL TART25 MG PO; +SENNOSIDES8.6 MG PO; +VITAMIN E400 UNI1 PO; +WELLBUTRIN SR150 MG PO; +tumeric curcumin PO
--- NOTE | 2019-08-25 15:42 | Diagnostic Imaging Report ---
EXAMINATION: MRI of the cervical spine without contrast HISTORY: Neck pain, cervical radiculopathy, headaches for the last month. COMPARISON: Cervical spine MRI 08/20/2018 TECHNIQUE: Sagittal T1, T2, STIR; axial T2, gradient echo. FINDINGS: Curvature: Subtle reversal of the cervical lordosis centered at C5-C6 which may be related to muscle spasm or positional. Vertebrae: No evidence of neoplasm, infection, or fracture. Foramen magnum: No mass, Chiari malformation, or basilar invagination. Spinal Cord: Normal size and signal intensity. Soft Tissues: Unremarkable. Degenerative changes: C1-C2: Unremarkable. C2-C3: Unremarkable. C3-C4: Unremarkable. C4-C5: Mild symmetric disc bulge with a small posterior central annular fissure. No spinal canal or neural foraminal stenosis. C5-C6: New approximately 5 mm AP diameter slightly inferiorly migrated disc extrusion, resulting in moderate canal stenoses and flattening of the ventral spinal cord without abnormal signal of the cord. Mild uncovertebral arthrosis. Mild left foraminal narrowing. C6-C7: Minimal symmetric disc bulge with tiny 2 mm AP diameter central disc protrusion, no significant canal or foraminal stenosis. No spinal cord compression. C7-T1: Unremarkable. IMPRESSION: 1. New central disc herniation at C5-C6 resulting in moderate canal stenoses without with flattening of the ventral cord but no abnormal signal within the cord. 2. Stable mild degenerative changes at C4-C5 and C6-7 without significant spinal canal or neural foraminal stenosis. Signed by: Dr. Yina Dias M.D. on 08/25/2019 3:40 PM
== END ==
LOC: MRI 06:33
PROVIDERS: ATTEND Family Medicine
DX: M54.12 Radiculopathy, cervical region (principal)
CPT/HCPCS: 72141

== ENCOUNTER 2019-09-09 06:05 | Observation (INO) | payer BC ==
[2019-09-08 14:05] LABS: BASOPHILS % 0.5 % (0.0-1.0); EOSINOPHILS # (AUTO) 0.1 (0.0-0.4); EOSINOPHILS % 1.8 % (0.0-6.0); HEMOGLOBIN 10.3 g/dL (12.0-16.0); LYMPHOCYTES # (AUTO) 1.7 (1.0-3.2); LYMPHOCYTES % 22.9 % (18.0-39.1); MEAN CORPUSCULAR HEMOGLOBIN 27.5 pg (28-32); MEAN CORPUSCULAR HGB CONC 31.2 g/dL (31-35); MONOCYTES # (AUTO) 0.5 (0.2-0.8); MONOCYTES % 6.6 % (4.4-11.3); NEUTROPHILS # (AUTO) 5.1 (2.1-6.9); NEUTROPHILS % 67.7 % (38.7-80.0); PLATELET COUNT 344 x10e3/uL (140-360); RED BLOOD COUNT 3.75 x10e6/uL (3.6-5.1); RED CELL DISTRIBUTION WIDTH 15.6 % (11.7-14.4)
--- NOTE | 2019-09-08 14:11 | Diagnostic Imaging Report ---
EXAM: CHEST 2 VIEWS DATE: 09/08/2019 1:29 PM INDICATION: Preoperative, preadmission evaluation COMPARISON: 01/18/2019 FINDINGS: The trachea is midline. The lungs are symmetrically expanded without evidence for large focal consolidation, pneumothorax, or significant pleural effusion. A stable calcified granuloma is noted within the right upper/midlung zone. The cardiomediastinal silhouette and pulmonary vasculature are within normal limits. No acute osseous abnormality is identified. The surrounding soft tissues are unremarkable. IMPRESSION: No acute cardiopulmonary process identified. Signed by: Dr. Adan Herrera MD on 09/08/2019 2:08 PM
[2019-09-08 14:12] LABS: INR 0.94; PROTHROMBIN TIME 13.1 seconds (11.9-14.5)
[2019-09-08 14:13] LABS: PARTIAL THROMBOPLASTIN TIME 27.4 seconds (23.8-35.5)
[2019-09-08 14:16] LABS: ANION GAP 9.9 mmol/L (8-16); BLOOD UREA NITROGEN 15 mg/dL (7-26); BUN/CREATININE RATIO 20 (6-25); CALCIUM 9.2 mg/dL (8.4-10.2); CARBON DIOXIDE 30 mmol/L (22-29); CHLORIDE 104 mmol/L (98-107); CREATININE, SERUM 0.76 mg/dL (0.57-1.11); EST GLOMERULAR FILTRATION RATE > 60 ML/MIN (60-); GLUCOSE 87 mg/dL (74-118); POTASSIUM 3.9 mmol/L (3.5-5.1); SODIUM 140 mmol/L (136-145)
[~2019-09-09] VITALS: Ht 160 cm; Wt 67.1 kg
[~2019-09-09 06:05] MED LIST changes: +ATORVASTATIN CA20 MG PO; +CALCIUM PO; +NORCO 10-325 T1 EACH PO
[2019-09-09] MEDS ORDERED: BACITRACIN 50,000 UNIT VIAL ONE (06:41)
[2019-09-09] MEDS ORDERED: THROMBIN FOR SOLN 5,000 UNIT VIAL ONE (06:41)
[2019-09-09] MEDS ORDERED: LIDOCAINE 1% W/EPINEPHRINE 20 ML VIAL ONE (06:41)
[2019-09-09] MEDS ORDERED: CEFAZOLIN SOD 1 GM/NS 50ML 50 ML IV ONE (06:44)
[2019-09-09] MEDS ORDERED: LIDOCAINE HCL (LTA) 4 ML SOLN ONE (07:24)
[2019-09-09] MEDS: LACTATED RINGER'S 1,000 ML IV SCH ×2 (09:50→18:10)
[2019-09-09] MEDS ORDERED: ZOLPIDEM TARTRATE 5 MG TAB PO PRN (10:00)
[2019-09-09] MEDS ORDERED: CEPACOL SORE THROAT LOZENGES PO PRN (10:00)
[2019-09-09] MEDS ORDERED: PROMETHAZINE HCL (IM) 25 MG/ML VIAL IM PRN (10:00)
[2019-09-09] MEDS ORDERED: MORPHINE SULFATE 5 MG/ML VIAL IM PRN (10:00)
[2019-09-09] MEDS ORDERED: MAGNESIUM/ALUMINUM/SIMETHICONE 30 ML UDC PO PRN (10:00)
[2019-09-09] MEDS ORDERED: ACETAMINOPHEN 325 MG TAB PO PRN (10:00)
[2019-09-09] MEDS ORDERED: HYDROMORPHONE 1MG/1ML INJ ONE ×2 (10:08→10:26)
[2019-09-09] MEDS ORDERED: FENTANYL CITRATE/PF 100MCG/2 ML INJ ONE ×2 (10:47→14:24)
--- NOTE | 2019-09-09 12:08 | NUR ---
ARRIVED VIA STRETCHER FROM PACU, AA&0X3, 3LNC, SOFT COLLAR IN PLACE, NO BLEEDING NOTED AT THIS TIME, IV TO LEFT WRIST INTACT, DTV, BILAT SCD'S AND GA IN PLACE, PAIN 6/10 AT THIS TIME, PER PACU NURSE, ALREADY MEDICATED, CALL LIGHT WITHIN REACH
[2019-09-09 12:32] VITALS: BP 115/67
[2019-09-09 12:36] VITALS: BP 115/67
[2019-09-09] MEDS ORDERED: MORPHINE SULFATE INJ 10 MG/ML ONE (14:24)
[2019-09-09] MEDS ORDERED: MIDAZOLAM HCL 2 MG/2 ML VIAL ONE (14:24)
[2019-09-09] MEDS: CARISOPRODOL 350 MG TAB PO PRN ×3 (14:30→23:50)
[2019-09-09] MEDS: OXYCODONE/ACETAMINOPHEN 5-325 1 EACH TABLET PO PRN ×3 (14:30→23:50)
--- NOTE | 2019-09-09 14:30 | NUR ---
TOLERATING PO AT THIS TIME, CALL LIGHT WITHIN REACH
[2019-09-09 15:51] VITALS: BP 105/61
--- NOTE | 2019-09-09 16:26 | Operative Report ---
DATE OF PROCEDURE: 09/09/2019 SURGEON: Chris Hugo MD PREOPERATIVE DIAGNOSIS: C5-6 disk herniation and spondylosis with radiculopathy, M5 0.122. POSTOPERATIVE DIAGNOSIS: C5-6 disk herniation and spondylosis with radiculopathy, M5 0.122. PROCEDURES PERFORMED: 1. C5-C6 anterior cervical diskectomy and microsurgical osteophyte resection and allograft fusion, 83055. 2. Preparation of MTF corticocancellous allograft, 73422. 3. C5-C6 anterior cervical plating with Synthes ZPN plate, 43423. ANESTHESIA: General. INDICATIONS: The patient is a 48-year-old woman who presents with C5-6 disk herniation with cervical myelopathy superimposed on chronic spondylosis. She was taken to the operating room for C5-6 anterior cervical decompression and fusion. PROCEDURE IN DETAIL: After induction of general anesthesia, the patient was placed on the operating table in supine position. The right side of neck was prepped and draped in sterile fashion. The fluoroscopic C-arm was positioned in cross-table lateral orientation. A small transverse incision was created. The platysma was divided in line with the incision. A subplatysmal dissection was carried out and avascular plane dissection was developed medial to the sternocleidomastoid muscle and was followed medial to the carotid sheath to the anterior border of the cervical spine. The deep cervical fascia was opened. The esophagus was retracted to the left. The attachments of longus colli muscles to the anterolateral aspects of vertebral bodies of C5 and C6 were divided. The anterior longitudinal ligament was resected. [place] posts were inserted into C5 and C6. The [place] distractor was used to distract the disk space. The anterior annulus of the disk was incised with a #11 blade. The contents of the disk were thoroughly evacuated with curettes and pituitary rongeurs. The posterior osteophytes were meticulously drilled with a 2 mm cutting bur on a high-speed drill until they were completely removed. The posterior annulus of the disk, a large amount of herniated disk material, and the posterior longitudinal ligament were resected layer by layer until the dura was fully exposed and decompressed. The medial aspects of the uncinate processes were further dissected bilaterally to expose any compressed origins of the corresponding nerve roots. After satisfactory decompression had been achieved, the endplates were prepared for fusion. An 8 mm piece of corticocancellous allograft was selected and prepared in saline and loaded onto the ZPN plate. The plate was inserted into the C5-6 disk space under distraction and fluoroscopic guidance. The distraction was released and distraction posts were removed. The plate was screwed to the endplates of C5 and C6 with two pairs of 14 mm screws. All screws were locked and an excellent construct was obtained. The wound was copiously irrigated with bacitracin solution. Meticulous hemostasis was secured. Retractor was removed. The platysma was closed with 3-0 Vicryl sutures. The skin was closed with 4-0 Monocryl sutures in subcuticular fashion. Steri-Strips and dressing were applied. The patient was awakened, extubated, and taken to postanesthesia care unit in stable condition. No intraoperative complications were encountered. ESTIMATED BLOOD LOSS: 20 cc. Chris Hugo MD PP/MEGAN /[id number]
--- NOTE | 2019-09-09 16:53 | NUR ---
PT UNABLE TO VOID, TELEPHONED MD AUSTIN TO MAKE AWARE, SPOKE WITH OFFICE, AWAITING CALL BACK, PT NOW AMBULATING IN HALLWAY, STEADY GAIT, FAMILY AT SIDE
[2019-09-09] MEDS ORDERED: D AMPHET PO SCH (17:00)
[2019-09-09] MEDS ORDERED: AMPHET ASP PO SCH (17:00)
[2019-09-09] MEDS: CEFAZOLIN SOD 1 GM/NS 50ML 50 ML IV SCH ×2 (17:00→23:33)
[2019-09-09] MEDS ORDERED: AMPHET PO SCH (17:00)
--- NOTE | 2019-09-09 17:32 | NUR ---
PT HAD STRAIGHT CATH, 900ML YELLOW URINE DRAINED, PT TOLERATED WELL, STATES "FEELS RELIEF", SPOKE WITH DR AUSTIN, ORDERS NOTED
[2019-09-09] MEDS: GABAPENTIN 100 MG CAP PO SCH ×2 (17:41→20:59)
[2019-09-09] MEDS ORDERED: SIMETHICONE80 MG PO (17:41)
[2019-09-09] MEDS: PANTOPRAZOLE SOD 40 MG TABEC PO SCH (17:46)
[2019-09-09] MEDS ORDERED: PANTOPRAZOLE SOD 40 MG TABEC ONE (17:48)
[2019-09-09] MEDS ORDERED: SIMETHICONE 80 MG CHEW PO PRN (18:30)
[2019-09-09] MEDS ORDERED: NEOSTIGMINE 1 MG/ML 10ML VIAL ONE (18:32)
[2019-09-09] MEDS ORDERED: SIMETHICONE 80 MG CHEW ONE (18:32)
[2019-09-09] MEDS ORDERED: GLYCOPYRROLATE INJ 0.2 MG/ML VIAL ONE (18:32)
[2019-09-09] MEDS ORDERED: SEVOFLURANE INHAL SOLN 250 ML PEN BTL ONE (18:32)
[2019-09-09] MEDS ORDERED: ACETAMINOPHEN 1000 MG/100 ML IV ONE (18:32)
[2019-09-09] MEDS ORDERED: ONDANSETRON HCL INJ 2MG/ML 2ML 2 MG/ML VIAL ONE (18:32)
[2019-09-09] MEDS ORDERED: DEXAMETHASONE SOD PHOS INJ 4 MG/ML VIAL ONE (18:32)
[2019-09-09] MEDS ORDERED: PROPOFOL IV EMULSION 10 MG/ML 20 ML VIAL ONE (18:32)
[2019-09-09] MEDS ORDERED: LIDOCAINE HCL 2% LOCAL INJ 5 ML SDV VIAL INJ ONE (18:32)
[2019-09-09] MEDS ORDERED: LIDOCAINE HCL 2% JELLY 5 ML TUBE ONE (18:32)
[2019-09-09] MEDS ORDERED: ROCURONIUM BROMIDE 10 MG/ML 5ML VIAL ONE (18:32)
--- NOTE | 2019-09-09 19:03 | NUR ---
WALKING ROUNDS PERFORMED, RECEIVED PT LAYING FOWLERS IN BED, AAOX3, RR EVEN AND NON-LABORED, ON ROOM AIR. NO S/SX OF DISTRESS NOTED. PT REPORTS SOFT COLLAR TO NECK FEELS LOSE. REPOSITIONED COLLAR. PT REPORTS FEELING BETTER. LEFT PT LAYING FOWLERS IN BED, BED IN LOW LOCKED POSITION, SIDE RAILS UPX2, CALL LIGHT AND PHONE WITHIN REACH. FAMILY AT BEDSIDE.
[2019-09-09 20:00] VITALS: BP 110/54
[2019-09-09] MEDS ORDERED: ATORVASTATIN 40 MG TAB PO SCH (21:00)
[2019-09-09] MEDS ORDERED: ATORVASTATIN 20 MG TAB PO SCH (21:00)
[2019-09-09] MEDS ORDERED: METOPROLOL TARTRATE 25 MG TAB PO SCH (21:00)
[2019-09-09] MEDS ORDERED: BUPROPION HCL SR 150 MG TAB PO SCH (21:00)
--- NOTE | 2019-09-09 21:01 | NUR ---
SPOKE WITH MD AUSTIN CONCERNING PT REPORTS OF GEN. ITCHING. NEW ORDERS RECEIVED.
[2019-09-09 21:11] VITALS: BP 110/54
[2019-09-09] MEDS: HYDROMORPHONE 2MG/ML 2 MG/ML ML IV PRN (21:20)
[2019-09-09] MEDS: ONDANSETRON HCL INJ 2MG/ML 2ML 2 MG/ML VIAL IV PRN (21:20)
[2019-09-09] MEDS: DIPHENHYDRAMINE HCL 25 MG CAP PO PRN (21:33)
--- NOTE | 2019-09-09 21:35 | NUR ---
ASSISTED PT TO BATHROOM TO ATTEMPT TO VOID. PT UNSUCCESSFUL, WILL CONTINUE TO MONITOR.
--- NOTE | 2019-09-09 23:35 | NUR ---
PT ASSISTED TO BATHROOM TO ATTEMPT TO VOID. PT UNSUCCESSFUL. PT ASSISTED BACK TO BED. DISCUSSED POC WITH PT CONCERNING BOWERS INSERTION. PT REFUSED BOWERS STATES SHE WOULD RATHER BE HAVE A STRAIGHT CATH AND ATTEMPT TO URINATE.
--- NOTE | 2019-09-09 23:58 | NUR ---
STRAIGHT CATH PERFORMED WITH 14F, STERILE TECHNIQUE UTILIZED, SECOND NURSE AT BEDSIDE. 900ML CLEAR YELLOW URINE DRAINED. DEEPAK CARE PERFORMED POST STRAIGHT CATH. LEFT PT LAYING FOWLERS IN BED, BED IN LOW LOCKED POSITION, SIDE RAILS UPX2, CALL LIGHT AND PHONE WITHIN REACH.
[2019-09-10] VITALS: BP 106/54
[2019-09-10] MEDS: LACTATED RINGER'S 1,000 ML IV SCH (01:48)
[2019-09-10] MEDS: HYDROMORPHONE 2MG/ML 2 MG/ML ML IV PRN ×2 (01:49→08:21)
[2019-09-10 04:00] VITALS: BP 108/60
[2019-09-10] MEDS: DIPHENHYDRAMINE HCL 25 MG CAP PO PRN (04:37)
--- NOTE | 2019-09-10 06:50 | NUR ---
Received patient lying in bed with eyes open. Respiration even and unlabored without SOB. Call light in reach.
--- NOTE | 2019-09-10 07:27 | Diagnostic Imaging Report ---
Cervical Spine Two Views CPT code: 16989 Indication: Postop Technique: AP and lateral views of cervical spine obtained. Comparison: MRI cervical spine 08/25/2019 Findings: Cervical vertebral bodies can be visualized to C7. The patient is status post anterior cervical discectomy and fusion at C5-6. Cervical hardware is intact without lucency surrounding the screws. There is diffuse prevertebral soft tissue swelling. The cervical spine is diffusely straightened but in anatomic alignment. The facets and spinous processes are normally aligned. Alignment is maintained on the AP view. The lateral masses of C1 are symmetric. The dens is intact. The skull base and upper chest are normal. IMPRESSION: Postoperative changes of the cervical spine at C5-6 with diffuse prevertebral soft tissue swelling. No malalignment. Signed by: Dr. Denzel Juan MD on 09/10/2019 7:24 AM
[2019-09-10 08:04] VITALS: BP 104/55
[2019-09-10] MEDS: GABAPENTIN 100 MG CAP PO SCH (08:19)
[2019-09-10] MEDS: PANTOPRAZOLE SOD 40 MG TABEC PO SCH (08:19)
[2019-09-10] MEDS: CEFAZOLIN SOD 1 GM/NS 50ML 50 ML IV SCH (08:19)
[2019-09-10] MEDS: ONDANSETRON HCL INJ 2MG/ML 2ML 2 MG/ML VIAL IV PRN (08:21)
[2019-09-10] MEDS ORDERED: VITAMIN E 400 UNIT CAP PO SCH (09:00)
[2019-09-10] MEDS ORDERED: DOCUSATE SODIUM 100 MG CAP PO SCH (09:00)
[2019-09-10] MEDS ORDERED: PANTOPRAZOLE SOD 40 MG TABEC PO SCH (09:00)
--- NOTE | 2019-09-10 09:10 | NUR ---
Patient reported that she urinated well and no signs and symptoms of retention.
[2019-09-10 09:47] VITALS: BP 104/55
[2019-09-10 11:00] VITALS: BP 109/59
[2019-09-10] MEDS ORDERED: NORCO 7.5-3251 EACH PO (11:03)
--- NOTE | 2019-09-10 11:34 | NUR ---
PIV to left FA discontinued, catheter tip intact, no bleeding noted. Dressing to anterior neck removed as ordered with steri strip left intact, no redness, no swelling around surrounding area. Discharge instructions given, prescription given. Verbalized understanding. Patient is transported via wheelchair to private vehicle with all personal belongings taken by patient's mother.
== END 2019-09-10 11:37 | disposition home or self-care (01) ==
LOC: OR 06:05 → PACU V 09:52 → MED/SURG 12:03
PROVIDERS: ADMIT Neurological Surgery; ATTEND Neurological Surgery
DX: M50.022 Cervical disc disorder at C5-C6 level with myelopathy (principal); M50.122 Cervical disc disorder at C5-C6 level with radiculopathy; E03.9 Hypothyroidism, unspecified; E78.5 Hyperlipidemia, unspecified; Z98.84 Bariatric surgery status; Z86.15 Personal history of latent tuberculosis infection; I20.9 Angina pectoris, unspecified; F32.9 Major depressive disorder, single episode, unspecified
CPT/HCPCS: 20931; 22551; 22845; 36415; 71046; 72040; 80048; 81025; 85025; 85610; 85730; 86850; 86900; 88304; 93005; C1713 ×2; C9359; G0378 ×2; J0131; J0690 ×2; J1100; J1170 ×3; J2001 ×2; J2250; J2270; J2405 ×2; J2704; J2710; J3010; J7121; S0164 ×2; 77003

== ENCOUNTER 2020-01-05 12:08 | Emergency (ER) | payer BC ==
[~2020-01-05] VITALS: Ht 160 cm; Wt 67.1 kg
[~2020-01-05 12:08] MED LIST changes: +SIMETHICONE80 MG PO
--- NOTE | 2020-01-05 12:22 | NUR ---
COVID SWAB DONE PER POLICY.
--- NOTE | 2020-01-05 12:22 | NUR ---
[facility] CALLED FOR TRANSPORT
[2020-01-05] MEDS ORDERED: ONDANSETRON HCL INJ 2MG/ML 2ML 2 MG/ML VIAL IV STA (12:27)
[2020-01-05] MEDS ORDERED: SODIUM CHLORIDE 0.9% 1000ML 1,000 ML IV STA ×2 (12:27→13:40)
[2020-01-05] MEDS ORDERED: ACETAMINOPHEN 325 MG TAB PO ONE (12:30)
[2020-01-05] MEDS ORDERED: SODIUM CHLORIDE 0.9% 1000ML 1,000 ML ONE (12:37)
--- NOTE | 2020-01-05 12:47 | Emergency Department Note ---
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 exposed to COVID 19 few days ago . Historian: Patient Arrival Mode: Car Field Service Consultant Required: No Onset (how long ago): day(s) Radiation: Reports non-radiation Onset quality: gradual Progression: waxing and waning Relieving factors: none Exacerbating factors: none Associated symptoms: Reports chest pain, Reports cough, Reports fever/chills, Reports loss of appetite, Reports malaise, Reports nausea/vomiting, Reports shortness of breath, Reports weakness Treatments prior to arrival: none Past Medical/Family History Physician Review I have reviewed the patient's past medical and family history. Any updates have been documented here. Past Medical History Recent Fever: Yes Clinical Suspicion of Infectio: Yes New/Unexplained Change in Ment: No Past Medical History: Anxiety, Depression, GERD, Hyperlipedemia Other Medical History: thyroid cyst ADD LATENT TB PAC'S Past Surgical History: Bariatric Surgery Other Surgery: Gastric sleeve TUMMY TUCK BREAST LIFT Social History Smoking Cessation: Unknown if ever smoked Counseling Performed: No Alcohol Use: None Any Illegal Drug Use: No TB Exposure/Symptoms: No Physically hurt or threatened: No Family History Family history of heart diseas: No Other Last Tetanus: OOD Any Pre-Existing Lines (PICC,: No Last Flu: Y Last Pneumovax: N Review of Systems Review of Systems Constitutional: Reports as per HPI, Reports chills, Reports fever, Reports malaise, Reports weakness EENTM: Reports no symptoms Cardiovascular: Reports no symptoms Respiratory: Reports chest congestion, Reports cough Gastrointestinal: Reports nausea Genitourinary: Reports no symptoms Musculoskeletal: Reports no symptoms Integumentary: Reports no symptoms Neurological: Reports no symptoms Psychological: Reports no symptoms Endocrine: Reports no symptoms Hematological/Lymphatic: Reports no symptoms Physical Exam Related Data Allergies: Coded Allergies: tramadol (Verified Allergy, Intermediate, SEVERE ITCHING, 08/07/18) nitrofurantoin (Verified Allergy, Unknown, 08/07/18) Triage Vital Signs Vital Signs Date Time Temp Pulse Resp B/P (MAP) Pulse Ox O2 Delivery O2 Flow Rate FiO2 01/05/20 12:10 97.7 60 16 136/70 100 Vital signs reviewed: Yes Physical Exam CONSTITUTIONAL Constitutional: Present well-developed, Present well-nourished HENT HENT: Present normocephalic, Present atraumatic, Present oropharynx clear/moist, Present nose normal HENT L/R: Present left ext ear normal, Present right ext ear normal EYES Eyes: Reports PERRL, Reports conjunctivae normal NECK Neck: Present ROM normal PULMONARY Pulmonary: Present effort normal, Present breath sounds normal CARDIOVASCULAR Cardiovascular: Present regular rhythm, Present heart sounds normal, Present capillary refill normal, Present normal rate GASTROINTESTINAL Abdominal: Present soft, Present nontender, Present bowel sounds normal GENITOURINARY Genitourinary: Present exam deferred SKIN Skin: Present warm, Present dry MUSCULOSKELETAL Musculoskeletal: Present ROM normal NEUROLOGICAL Neurological: Present alert, Present oriented x 3, Present no gross motor or sensory deficits PSYCHOLOGICAL Psychological: Present mood/affect normal, Present judgement normal Results Laboratory Lab results reviewed: Yes Laboratory comments covid reportedly negative per nurse. Imaging Imaging results reviewed: Yes Diagnostics Tests Diagnostic test(s) reviewed: Yes Assessment & Plan Medical Decision Making MDM 49 yo CF with URI symptoms, exposed to COVID 19, need COVID 19 work up Assessment & Plan Final Impression: (1) Upper respiratory infection (2) Exposure to COVID-19 virus (3) Counseled about COVID-19 virus infection (4) Upper respiratory infection Last Vital Signs Date Time Temp Pulse Resp B/P (MAP) Pulse Ox O2 Delivery O2 Flow Rate FiO2 01/05/20 12:10 97.7 60 16 136/70 100 Home Meds Active Scripts Ondansetron Hcl* (ZOFRAN*) 4 Mg Tablet, 4 MG PO Q6H PRN for NAUSEA, #20 Prov:DAVID DANIELLE MD 01/05/20 Promethazine Hcl (PROMETHAZINE HCL) 25 Mg Tablet, 25 MG PO Q6H, #20 TAB Prov:DAVID DANIELLE MD 01/05/20 Dexamethasone (DEXAMETHASONE) 4 Mg Tablet, 4 MG PO BID for 5 Days, TAB Prov:DAVDI DANIELEL MD 01/05/20 Azithromycin (AZITHROMYCIN) 500 Mg Tablet, 1 TAB PO DAILY for 5 Days Prov:DAVID DANIELLE MD 01/05/20 Reported Medications Hydrocodone Bit/Acetaminophen (NORCO 7.5-325 TABLET) 1 Each Tablet, 1 EA PO Q6H PRN for MODERATE PAIN (4-6), TAB 09/10/19 Simethicone (SIMETHICONE) 80 Mg Chew, 80 MG PO DAILY PRN for GAS, #30 TAB 09/09/19 Hydrocodone Bit/Acetaminophen (NORCO 10-325 TABLET) 1 Each Tablet, PO PRN 09/08/19 [Calcium] No Conflict Check, 1200 MG PO DAILY 09/08/19 Atorvastatin Calcium (ATORVASTATIN CALCIUM) 20 Mg Tablet, 40 MG PO HS, #30 TAB 09/08/19 Aspirin (ASPIRIN EC) 81 Mg Tablet.dr, 81 MG PO DAILY, #30 TAB 01/19/19 Metoprolol Tartrate (METOPROLOL TARTRATE) 25 Mg Tablet, 12.5 MG PO HS, TAB 01/19/19 Bupropion Hcl (WELLBUTRIN SR) 150 Mg Tablet.er, 300 MG PO HS 01/19/19 [methacarbamol] No Conflict Check, 750 MG PO Q8H PRN for MODERATE PAIN (4-6) 01/19/19 Amphet Asp/Amphet/D-Amphet (ADDERALL 15 MG TABLET) 15 Mg Tablet, 20 MG PO BID 01/19/19 Vitamin E Mixed (VITAMIN E) 400 Unit Capsule, 400 UNIT PO DAILY 01/19/19 Docusate Sodium (COLACE) 100 Mg Cap, 200 MG PO DAILY, #30 CAP 01/19/19 Gabapentin (GABAPENTIN) 100 Mg Capsule, 100 MG PO TID 06/28/17 [Biotin] No Conflict Check, 05135 MCG PO DAILY 09/09/16 [Vitamin D3] No Conflict Check, 4000 UNIT PO DAILY 09/09/16 Multivitamin (MULTIVITAMINS) 1 Each Capsule, 2 PO DAILY 09/09/16 Omeprazole (OMEPRAZOLE) 20 Mg Capsule.dr, 20 MG PO DAILY 09/09/16 Medications in the ED Acetaminophen 650 mg ONCE ONCE PO ; Start 01/05/20 at 12:30; Stop 01/05/20 at 12:31; Status DC Ondansetron HCl 4 mg NOW STAT IV ; Start 01/05/20 at 12:27; Stop 01/05/20 at 12:33; Status DC Sodium Chloride 1,000 ml @ 0 mls/hr Q0M STAT IV ; Start 01/05/20 at 12:27; Stop 6/17/20 at 12:29; Status DC Sodium Chloride 1,000 ml @ [facility] ONCE .ROUTE ; Start 01/05/20 at 12:37; Stop 01/05/20 at 12:34; Status DC DAVID DANIELLE MD Jan 05, 2020 12:46
--- NOTE | 2020-01-05 13:00 | Diagnostic Imaging Report ---
TECHNIQUE: Frontal view of the chest. INDICATION: ^cough ^[id number] ^[id number] COMPARISON: 09/08/2019 IMPRESSION: Lines and hardware: Stable. Heart and mediastinum: Stable. Lungs and pleura: No focal airspace consolidation. Right midlung zone subcentimeter calcified granuloma. No pleural effusion. No pneumothorax. Soft tissues and bones: No acute abnormality. Signed by: Eyad Mckeon MD on 01/05/2020 12:56 PM
[2020-01-05] MEDS ORDERED: ONDANSETRON HCL INJ 2MG/ML 2ML 2 MG/ML VIAL IV ONE (13:45)
[2020-01-05] MEDS ORDERED: PROMETHAZINE HC25 M1 PO (13:46)
[2020-01-05] MEDS ORDERED: AZITHROMYCIN500 MG PO (13:46)
[2020-01-05] MEDS ORDERED: DEXAMETHASONE4 MG PO (13:46)
[2020-01-05] MEDS ORDERED: ZOFRAN4 MG PO (13:46)
== END 2020-01-05 14:50 | disposition home or self-care (01) ==
LOC: FSED 12:08
DX: Z20.828 Contact with and (suspected) exposure to other viral communicable diseases (principal); J06.9 Acute upper respiratory infection, unspecified; E78.5 Hyperlipidemia, unspecified; F41.9 Anxiety disorder, unspecified; K21.9 Gastro-esophageal reflux disease without esophagitis
CPT/HCPCS: 71045; 87635; 99284; J7030; J2405

== ENCOUNTER → 2020-03-22 | Outpatient (CLI) | payer BC ==
[~2020-03-22] MED LIST changes: +AZITHROMYCIN500 MG PO; +DEXAMETHASONE4 MG PO; +PROMETHAZINE HC25 M1 PO; +ZOFRAN4 MG PO
[2020-03-22 16:22] LABS: BASOPHILS % 0.5 % (0.0-1.0); EOSINOPHILS # (AUTO) 0.2 (0.0-0.4); EOSINOPHILS % 2.8 % (0.0-6.0); HEMOGLOBIN 9.3 g/dL (12.0-16.0); LYMPHOCYTES # (AUTO) 2.1 (1.0-3.2); LYMPHOCYTES % 27.3 % (18.0-39.1); MEAN CORPUSCULAR HEMOGLOBIN 25.3 pg (28-32); MEAN CORPUSCULAR VOLUME 84.5 fL (81-99); MONOCYTES # (AUTO) 0.7 (0.2-0.8); MONOCYTES % 8.9 % (4.4-11.3); NEUTROPHILS # (AUTO) 4.5 (2.1-6.9); NEUTROPHILS % 60.2 % (38.7-80.0); PLATELET COUNT 375 x10e3/uL (140-360); RED BLOOD COUNT 3.67 x10e6/uL (3.6-5.1); RED CELL DISTRIBUTION WIDTH 15.9 % (11.7-14.4)
[2020-03-22 16:42] LABS: ALBUMIN 4.3 g/dL (3.5-5.0); ALBUMIN/GLOBULIN RATIO 1.7 (0.8-2.0); CALCIUM 8.5 mg/dL (8.4-10.2); CHOL/HDL RATIO 2.5 (3.0-3.6)
== END ==
LOC: LAB 16:01
PROVIDERS: ATTEND Family Medicine
DX: Z00.00 Encounter for general adult medical examination without abnormal findings (principal); F98.8 Other specified behavioral and emotional disorders with onset usually occurring in childhood and adolescence; E78.5 Hyperlipidemia, unspecified; F32.9 Major depressive disorder, single episode, unspecified; E55.9 Vitamin D deficiency, unspecified; E53.8 Deficiency of other specified B group vitamins
CPT/HCPCS: 36415; 80053; 80061; 82306; 82607; 85025

== ENCOUNTER 2020-04-14 07:01 | Emergency (ER) | payer BC ==
[~2020-04-14] VITALS: Ht 160 cm; Wt 67.1 kg
[2020-04-14] MEDS ORDERED: EYE IRRIGATION (OPTH) 120 ML BTL OP ONE (07:15)
[2020-04-14] MEDS ORDERED: FLUORESCEIN SOD(OPTH) 1 MG STRP OP ONE (07:15)
[2020-04-14] MEDS ORDERED: TETRACAINE HCL 0.5% OPTH SOLN 4 ML BTL OP ONE (07:15)
[2020-04-14] MEDS ORDERED: TOBRAMYCIN 0.3% OPTH OINT 3.5 GM TUBE ONE (07:27)
[2020-04-14] MEDS ORDERED: TOBRAMYCIN 0.3% (OPTH) 5 ML BTL ONE (07:27)
[2020-04-14] MEDS ORDERED: TOBRAMYCIN 0.3% OPTH OINT 3.5 GM TUBE OP ONE ×2 (07:30→07:45)
--- NOTE | 2020-04-14 07:34 | Emergency Department Note ---
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 Patient denies known trauma. Eye is red and sensitive. She does wear contacts and accidentally slept with contacts in night, woke with redness and pain left eye on am Historian: Patient Arrival Mode: Car Out Of Town Collection Clerk Required: No Onset (how long ago): day(s) (1) Location: left eye Quality: pain Radiation: Reports non-radiation Severity: moderate Onset quality: sudden Timing of current episode: constant Progression: unchanged Chronicity: new Context: Denies recent illness Relieving factors: none Exacerbating factors: none Associated symptoms: Reports denies other symptoms Treatments prior to arrival: none Past Medical/Family History Physician Review I have reviewed the patient's past medical and family history. Any updates have been documented here. Past Medical History Recent Fever: No Clinical Suspicion of Infectio: No New/Unexplained Change in Ment: No Past Medical History: Anxiety, Depression, GERD, Hyperlipedemia Other Medical History: thyroid cyst ADD LATENT TB PAC'S Past Surgical History: Bariatric Surgery Other Surgery: Gastric sleeve TUMMY TUCK BREAST LIFT Social History Smoking Cessation: Former smoker Counseling Performed: No Alcohol Use: Occasional Any Illegal Drug Use: No TB Exposure/Symptoms: No Physically hurt or threatened: No Family History Family history of heart diseas: No Other Last Tetanus: OOD Any Pre-Existing Lines (PICC,: No Review of Systems Review of Systems Constitutional: Reports no symptoms EENTM: Reports as per HPI, Reports eye pain, Reports tearing; Denies blurred vision Cardiovascular: Reports no symptoms Respiratory: Reports no symptoms Gastrointestinal: Reports no symptoms Genitourinary: Reports no symptoms Musculoskeletal: Reports no symptoms Integumentary: Reports no symptoms Neurological: Reports no symptoms Psychological: Reports no symptoms Endocrine: Reports no symptoms Hematological/Lymphatic: Reports no symptoms Physical Exam Related Data Allergies: Coded Allergies: tramadol (Verified Allergy, Intermediate, SEVERE ITCHING, 08/07/18) nitrofurantoin (Verified Allergy, Unknown, 08/07/18) Triage Vital Signs Vital Signs Date Time Temp Pulse Resp B/P (MAP) Pulse Ox O2 Delivery O2 Flow Rate FiO2 04/14/20 07:07 98.1 73 17 132/76 100 Room Air Vital signs reviewed: Yes Physical Exam CONSTITUTIONAL Constitutional: Present well-developed, Present well-nourished HENT HENT: Present normocephalic, Present atraumatic, Present oropharynx clear/moist, Present nose normal HENT L/R: Present left ext ear normal, Present right ext ear normal EYES Eyes: Reports PERRL, Reports lids normal, Reports other (left eye injected, pupils normal, EOMI, fundi normal, with flouroscein - abrasion inferior to iris) NECK Neck: Present ROM normal PULMONARY Pulmonary: Present effort normal, Present breath sounds normal CARDIOVASCULAR Cardiovascular: Present regular rhythm, Present heart sounds normal, Present capillary refill normal, Present normal rate GASTROINTESTINAL Abdominal: Present soft, Present nontender, Present bowel sounds normal GENITOURINARY Genitourinary: Present exam deferred SKIN Skin: Present warm, Present dry MUSCULOSKELETAL Musculoskeletal: Present ROM normal NEUROLOGICAL Neurological: Present alert, Present oriented x 3, Present no gross motor or s ensory deficits PSYCHOLOGICAL Psychological: Present mood/affect normal, Present judgement normal Assessment & Plan Medical Decision Making MDM corneal abrasion Reassessment Reassessment Tobramycin ointment TID, I offered to dilate pupil but pt says she needs to wor k, F/U Dr Leroy, Ibuprofen UD Assessment & Plan Final Impression: (1) Corneal abrasion Depart Disposition: HOME, SELF-CARE Last Vital Signs Date Time Temp Pulse Resp B/P (MAP) Pulse Ox O2 Delivery O2 Flow Rate FiO2 04/14/20 07:07 98.1 73 17 132/76 100 Room Air Home Meds Active Scripts Ondansetron Hcl* (ZOFRAN*) 4 Mg Tablet, 4 MG PO Q6H PRN for NAUSEA, #20 Prov:DAVID DANIELLE MD 01/05/20 Promethazine Hcl (PROMETHAZINE HCL) 25 Mg Tablet, 25 MG PO Q6H, #20 TAB Prov:DAVID DANIELLE MD 01/05/20 Dexamethasone (DEXAMETHASONE) 4 Mg Tablet, 4 MG PO BID for 5 Days, TAB Prov:DAVID DANIELLE MD 01/05/20 Azithromycin (AZITHROMYCIN) 500 Mg Tablet, 1 TAB PO DAILY for 5 Days Prov:DAVID DANIELLE MD 01/05/20 Reported Medications Hydrocodone Bit/Acetaminophen (NORCO 7.5-325 TABLET) 1 Each Tablet, 1 EA PO Q6H PRN for MODERATE PAIN (4-6), TAB 09/10/19 Simethicone (SIMETHICONE) 80 Mg Chew, 80 MG PO DAILY PRN for GAS, #30 TAB 09/09/19 Hydrocodone Bit/Acetaminophen (NORCO 10-325 TABLET) 1 Each Tablet, PO PRN 09/08/19 [Calcium] No Conflict Check, 1200 MG PO DAILY 09/08/19 Atorvastatin Calcium (ATORVASTATIN CALCIUM) 20 Mg Tablet, 40 MG PO HS, #30 TAB 09/08/19 Aspirin (ASPIRIN EC) 81 Mg Tablet.dr, 81 MG PO DAILY, #30 TAB 01/19/19 Metoprolol Tartrate (METOPROLOL TARTRATE) 25 Mg Tablet, 12.5 MG PO HS, TAB 01/19/19 Bupropion Hcl (WELLBUTRIN SR) 150 Mg Tablet.er, 300 MG PO HS 01/19/19 [methacarbamol] No Conflict Check, 750 MG PO Q8H PRN for MODERATE PAIN (4-6) 01/19/19 Amphet Asp/Amphet/D-Amphet (ADDERALL 15 MG TABLET) 15 Mg Tablet, 20 MG PO BID 01/19/19 Vitamin E Mixed (VITAMIN E) 400 Unit Capsule, 400 UNIT PO DAILY 01/19/19 Docusate Sodium (COLACE) 100 Mg Cap, 200 MG PO DAILY, #30 CAP 01/19/19 Gabapentin (GABAPENTIN) 100 Mg Capsule, 100 MG PO TID 06/28/17 [Biotin] No Conflict Check, 54183 MCG PO DAILY 09/09/16 [Vitamin D3] No Conflict Check, 4000 UNIT PO DAILY 09/09/16 Multivitamin (MULTIVITAMINS) 1 Each Capsule, 2 PO DAILY 09/09/16 Omeprazole (OMEPRAZOLE) 20 Mg Capsule.dr, 20 MG PO DAILY 09/09/16 Medications in the ED Eye Irrigation Solution 50 ml ONCE ONCE OP Last administered on 04/14/20at 07:14; Admin Dose 50 ML; Start 04/14/20 at 07:15; Stop 04/14/20 at 07:16; Status DC Fluorescein Sodium 1 mg ONCE ONCE OP Last administered on 04/14/20at 07:14; Admin Dose 1 MG; Start 04/14/20 at 07:15; Stop 04/14/20 at 07:16; Status DC Tetracaine HCl 1 ml ONCE ONCE OP Last administered on 04/14/20at 07:14; Admin Dose 1 ML; Start 04/14/20 at 07:15; Stop 04/14/20 at 07:16; Status DC Tobramycin 3.5 gm STK-MED ONCE .ROUTE ; Start 04/14/20 at 07:27; Stop 04/14/20 at 07:20; Status DC Tobramycin 5 ml STK-MED ONCE .ROUTE ; Start 04/14/20 at 07:27; Stop 04/14/20 at 07:20; Status DC DAISY APODACA MD Apr 14, 2020 07:34
[2020-04-14] MEDS ORDERED: TOBRAMYCIN 0.3% (OPTH) 5 ML BTL OP ONE (10:00)
--- OUTSIDE RECORDS SUMMARY | 2020-04-16 16:08 | XMS REPORT | Continuity of Care Document ---
Author Author [facility] t Organization [facility] Address [address] [place] [address] Phone Unavailable Care Team Providers Care Educator Senior Clinical Name Role Phone Freddie GIRALDO M.D. 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 Problems Condition Name Condition Details Condition Category Status Onset Date Resolution Date Last Treatment Date Treating Clinician Comments Source Abdominal pain Abdominal pain Problem Active [facility] Constipation Constipation Problem Active [facility] Contusion of left knee Contusion of left knee Problem Active [facility] Fall Fall Problem Active [facility] Urinary tract infection Urinary tract infection Problem Active [facility] Contusion of right lower leg Problem Active [facility] Thoracic myofascial strain Problem Active [facility] Upper respiratory tract infection Problem Active [facility] Exposure to severe acute respiratory syndrome coronavirus 2 (SARS-CoV-2) Problem Active [facility] Advice given about severe acute respirat ory syndrome coronavirus 2 (SARS-CoV-2) infection Problem Active [facility] Corneal abrasion Problem Active [facility] Allergies, Adverse Reactions, Alerts Allergy Name Allergy Type Status Severity Reaction(s) Onset Date Inacti ve Date Treating Clinician Comments Source Nitrofurantoin Allergy to substance Active 2018-08-07 00:00 :00 [facility] Tramadol Allergy to substance Active Moderate SEVERE ITCHING 2018-08-07 00:00:00 [facility] Social History Social Habit Start Date Stop Date Quantity Comments Source Sex Assigned At 1970 00:00:00 1970 00:00:[address] [facility] Medications Ordered Medication Name Filled Medication Name Start Date Stop Da te Current Medication? Ordering Clinician Indication Dosage Frequency Signature (SIG) Comments Components Source Azithromycin Azithromycin 2020-01-05 13:46:[address] [facility] Dexamethasone Dexamethasone 2020-01-05 13:46:00 Yes [address] [facility] Ondansetron Hcl (Zofran*) 4 Mg TABLET Ondansetron Hcl (Zofra n*) 4 Mg TABLET 2020-01-05 13:46:00 Yes 4 Every 6 Hours as n eeded for Nausea [facility] Promethazine Hcl Promethazine Hcl 2020-01-05 13:46:00 Yes 25 Every 6 Hours [facility] Amphet Asp/Amphet/D-Amphet (Adderall 15 Mg Tablet) 15 Mg TABLET Amphet Asp/Amphet/D-Amphet (Adderall 15 Mg Tablet) 15 Mg TABLET Yes 20 Twice A Day [facility] Aspirin (Aspirin Ec) 81 Mg TABLET. Aspirin (Aspirin Ec) 81 Mg TAB LET. Yes [address] [facility] Atorvastatin Calcium Atorvastatin Calcium Yes [address] [facility] [place] [address] Daily [facility] Bupropion Hcl (Wellbutrin Sr) 150 Mg TABLET.ER Bupropi on Hcl (Wellbutrin Sr) 150 Mg TABLET.ER Yes 300 Bedtime [facility] Calcium Calcium Yes [address] [facility] Docusate Sodium (Colace) 100 Mg CAP Docusate Sodium (Colace) 100 Mg C AP Yes 200 Daily [facility] Gabapentin Gabapentin Yes [address] [facility] Hydrocodone Bit/Acetaminophen (Leon 10-325 Tablet) 1 Each TABLET Hydrocodone Bit/Acetaminophen (Leon 10-325 Tablet) 1 Each TABLET Yes As Needed [facility] Hydrocodone Bit/Acetaminophen (Leon 7.5-325 Tablet) 1 Each TABLET Hydrocodone Bit/Acetaminophen (Leon 7.5-325 Tablet) 1 Each TABLET Yes 1 Every 6 Hours as needed for Moderate Pain (4-6) [facility] Methacarbamol Methacarbamol Yes 750 Every 8 Hours as needed for Moderate Pain (4-6) [facility] Metoprolol Tartrate Metoprolol Tartrate Yes 12.[address] [facility] Multivitamin (Multivitamins) 1 Each CAPSULE Multivitam in (Multivitamins) 1 Each CAPSULE Yes [address] [facility] Omeprazole Omeprazole Yes 20 Daily [facility] Simethicone Simethicone Yes 80 Daily as needed for Gas [facility] Vitamin D3 Vitamin D3 Yes 4000 Daily [facility] Vitamin E Mixed (Vitamin E) 400 Unit CAPSULE Vitamin E Mixed (Vitamin E) 400 Unit CAPSULE Yes [address] [facility] Stefan/Kat/Dr Castillo Peel/Gr T (Apple Cider Vinegar Pl us Tb) 1 Each TABLET Stefan/Kat/Dr Castillo Peel/Gr T (Apple Cider Vinegar Plus Tb) 1 Each TABLET 2019-09-08 00:00:[address] [facility] Diphenhydramine Hcl (Benadryl) 25 Mg CAPSULE Diphenhyd ramine Hcl (Benadryl) 25 Mg CAPSULE 2019-09-08 00:00:[address] [facility] Folic Acid Folic Acid 2019-09-08 00:00:00 [address] [facility] Deirdre Powder Deirdre Powder 2019-09-08 00:00:[address] [facility] Hydrocodone Bit/Acetaminophen (Leon 7.5-325 Tablet) 1 Each TABLET Hydrocodone Bit/Acetaminophen (Leon 7.5-325 Tablet) 1 Each TABLET 2019-08-21 9 00:00:00 No 1 Twice A Day as needed for Mod [facility] Sennosides Sennosides 2019-09-08 00:00:00 [address] [facility] Tumeric Curcumin Tumeric Curcumin 2019-09-08 00:00:[address] [facility] Calcium Carbonate (Calcium) 600 Mg TABLET Calcium Carb cole (Calcium) 600 Mg TABLET 2019-01-19 00:00:[address] [facility] Cranberry Cranberry 2019-01-19 00:00:[address] [facility] Escitalopram Oxalate (Lexapro) 10 Mg TABLET Escitalopr am Oxalate (Lexapro) 10 Mg TABLET 2019-01-19 00:00:[address] [facility] Cephalexin Monohydrate (Keflex) 500 Mg CAPSULE Cephale clay Monohydrate (Keflex) 500 Mg CAPSULE 2017-06-28 00:00:00 No 500 Three Steve es A Day [facility] Citalopram Hydrobromide (Celexa) 20 Mg TABLET Citalopr am Hydrobromide (Celexa) 20 Mg TABLET 2017-06-28 00:00:[address] [facility] Enoxaparin Sodium (Lovenox) 60 Mg/0.6 Ml INJ Enoxapari n Sodium (Lovenox) 60 Mg/0.6 Ml INJ 2017-06-28 00:00:00 No 40 Today At 5 :00PM [facility] Hydrocodone Bit/Acetaminophen (Leon 7.5-325 Tablet) 1 Each TABLET Hydrocodone Bit/Acetaminophen (Leon 7.5-325 Tablet) 1 Each TABLET 9 00:00:00 No 1 Every 4 Hours as needed for Pain [facility] Vital Signs Vital Name Observation Time Observation Value Comments Source Weight 2020-04-14 07:07:00 148 [lb_av] [facility] BMI (Body Mass Index) 2020-04-14 07:07:00 26.2 kg/m2 [facility] Weight 2020-01-05 12:10:00 148 [lb_av] [facility] BMI (Body Mass Index) 2020-01-05 12:10:00 26.2 kg/m2 [facility] Body Temperature 2019-09-10 10:00:00 97.8 [degF] [facility] Procedures Procedure Date / Time Performed Performing Clinician Katerin GRANGER BONE ALGRFT STRUCT ADD-ON 2019-09-09 00:00:00 [facility] NECK SPINE FUSE&REMOV BEL C2 2019-09-09 00:00:00 [facility] INSERT SPINE FIXATION DEVICE 2019-09-09 00:00:00 [facility] X-ray of chest, two views 2019-09-08 00:00:00 GIANNA AUSTIN [facility] Magnetic resonance imaging of cervical spine without c ontrast 2019-08-25 00:00:00 AUDI GIRALDO [facility] Plan of Care Planned Activity Planned Date Details Comments Source Instructions Corneal Abrasion [facility] Encounters Start Date/Time End Date/Time Encounter Type [facility] Encounter ID Source 2020-04-14 07:12:00 2020-04-14 07:35:00 Departed Emergency Room [facility] [place] [id number] [facility] dical [place] 2020-03-22 16:01:00 2020-03-22 16:01:[address] [facility] [place] [id number] [facility] 2020-01-05 12:08:00 2020-01-05 14:50:00 Departed Emergency Room [address] [facility] [place] [id number] [facility] . Mary allens - Patients [facility] 2019-10-11 06:46:00 2019-10-11 06:46:00 Registered Clinic 3 ZAIAR [facility]MAN [facility] [id number] [facility] . Mary allens - [facility] 2019-09-09 08:52:00 2019-09-10 10:37:00 Discharged Inpatient (obs) 3 GIANNA AUSTIN [facility] St [facility] [id number] I [facility] [place] - Patients [facility] 2019-08-25 05:33:00 2019-08-25 05:33:00 Registered Clinic 3 [facility] [id number] [facility] . Mary vega [facility] 2019-01-18 20:26:00 2019-01-20 08:27:00 Discharged Inpatient (obs) [address] [facility] [id number] [facility] 2018-12-29 09:08:00 2018-12-29 09:08:00 Registered Clinic [address] [id number] [facility] 2018-12-02 13:19:00 2018-12-02 13:19:[address] [facility] [id number] [facility] 2018-08-20 07:49:00 2018-08-20 07:49:00 Registered Clinic 3 [facility] [id number] [facility] 2018-08-07 16:28:00 2018-08-07 16:51:[address] [facility] [id number] [facility] - [facility] 2018-08-05 19:20:00 2018-08-05 21:33:[address] [facility] [id number] [facility] [place] - Patients [facility] 2018-08-01 09:45:00 2018-08-01 10:32:[address] [facility] [id number] [facility] 2018-07-29 05:46:00 2018-07-29 06:53:00 Departed Emergency Room [address] [facility] [id number] [facility] 2018-02-25 06:27:00 2018-02-25 06:27:[address] [facility] [id number] [facility] 2017-10-27 08:53:00 2017-11-17 23:59:[address] [facility] [id number] [facility] 2017-10-15 12:30:00 2017-10-18 23:59:[address] [facility] [id number] [facility] 2017-10-01 09:31:00 2017-10-01 09:31:00 Registered Clinic JOE GIRALDO [facility] [id number] [facility] 2017-09-26 13:36:00 2017-09-26 13:36:00 Registered [facility] [id number] [facility] 2017-09-19 14:40:00 2017-09-19 14:40:[address] [facility] [id number] [facility] 2017-08-18 19:25:00 2017-08-18 22:08:00 Departed Emergency Room ER DAISY APODACA [facility] [id number] [facility] 2017-06-29 10:42:00 2017-06-29 14:52:00 Departed Emergency Room ER ELKIN LLOYD [facility] [id number] [facility] 2017-06-28 17:22:00 2017-06-28 18:50:[address] [facility] [id number] [facility] Results Test Description Test Time Test Comments Results Result Comments Source Serum or plasma 25-hydroxyvitamin D measurement (mass/ volume) 2020-03-22 16:15:00 Test Item 25-Hydroxy Vitamin D Total (test code = 03342-9) 59 . Reference Range:All Ages: Target levels 30 - 100[facility] 25-hydroxycalciferol measurement (mass/volume)2020-03-22 16:15:00* Test Item Value Reference Range Interpretation Comments 25-Hydroxy Vitamin D3 (test code = 56743-3) 59 . This test was developed and its performance characteristicsdetermined by [employer] . It has not been cleared or approvedby the Food and Drug Administration.Perform ed at: [facility] [employer] [address] [place] [address] [id number] Director: Dong Posada MD, Phone: [phone] [facility] Medical Centererum or plasma calcidiol measurement (mass/volume)2020-03-22 16:15:00* Test Item Value Reference Range Interpretation Comments 25-Hydroxy Vitamin D2 (test code = 1989-3) <1.0 . This test was developed and its performance characteristicsdetermined by [employer] . It has not been cleared or approvedby the Food and Drug Administration.[facility] automated count (number/volume) 2020-03-22 16:07:00* Test Item Value Reference Range Interpretation Comments White Blood Count (test code = 6690-2) 7.50 4.8-10.8 [facility] erythrocytes automated count (number/volume)2020-03-22 16:07:00* Test Item Value Reference Range Interpretation Comments Red Blood Count (test code = 789-8) 3.67 3.6-5.1 [facility] hemoglobin measurement (moles/volume)2020-03-22 16:07:00* Test Item Value Reference Range Interpretation Comments Hemoglobin (test code = 67833-2) 9.3 12.0-16.0 [facility] blood hematocrit (volume fraction)2020-03-22 16:07:00* Test Item Value Reference Range Interpretation Comments Hematocrit (test code = 4544-3) 31.0 34.2-44.1 [facility] erythrocyte mean corpuscular [id number] 16:07:00* Test Item Value Reference Range Interpretation Comments Mean Corpuscular Volume (test code = 787-2) 84.5 81-99 [facility] erythrocyte mean corpuscular hemoglobin (mass per erythrocyte)2020-03-22 16:07:00* Test Item Value Reference Range Interpretation Comments Mean Corpuscular Hemoglobin (test code = 785-6) 25.3 28-32 [facility] erythrocyte mean corpuscular hemoglobin concentration measurement (mass/volume)2020-03-22 16:07:00* Test Item Value Reference Range Interpretation Comments Mean Corpuscular Hemoglobin Concent (test code = 786-4) 30.0 31-35 [facility] HospitalRDW WhoXl-Nrh1324-34-02 16:07:00* Test Item Value Reference Range Interpretation Comments Red Cell Distribution Width (test code = 80134-7) 15.9 11.7 -14.4 [facility] blood platelet count (count/volume)2020-03-22 16:07:00* Test Item Value Reference Range Interpretation Comments Platelet Count (test code = 777-3) 375 140-360 [facility] blood segmented neutrophil count as percentage of total drtmrmbuww2589-09-55 16:07:00* Test Item Value Reference Range Interpretation Comments Neutrophils (%) (Auto) (test code = 08934-0) 60.2 38.7-80.0 [facility] blood lymphocyte count as percentage ot total llhxwcpuga5455-31-31 16:07:00* Test Item Value Reference Range Interpretation Comments Lymphocytes (%) (Auto) (test code = 736-9) 27.3 18.0-39.1 [facility] HospitalAutunc health lenoired blood monocyte count as percentage of total pbymsqrbtm4010-05-50 16:07:00* Test Item Value Reference Range Interpretation Comments Monocytes (%) (Auto) (test code = 5905-5) 8.9 4.4-11.3 [facility]Autom[facility] blood eosinophil count as percentage of total zewvlvhjok5610-61-59 16:07:00* Test Item Value Reference Range Interpretation Comments Eosinophils (%) (Auto) (test code = 713-8) 2.8 0.0-6.0 [facility]Aut[facility] health lenoired blood basophil count as percentage of total dqtixsrxoe6959-76-98 16:07:00* Test Item Value Reference Range Interpretation Comments Basophils (%) (Auto) (test code = 706-2) 0.5 0.0-1.0 [facility] HospitalFluoroscopic procedure less than one hour trnoezpm7139-61-20 16:07:00* Test Item Value Reference Range Interpretation Comments IM GRANULOCYTES % (test code = IM GRANULOCYTES %) 0.3 0.0- 1.0 [facility]Aut[facility] lenoired blood neutrophil count 2020-03-22 16:07:00* Test Item Value Reference Range Interpretation Comments Neutrophils # (Auto) (test code = 751-8) 4.5 2.1-6.9 [facility] lymphocytes count (number/volume) 2020-03-22 16:07:00* Test Item Value Reference Range Interpretation Comments Lymphocytes # (Auto) (test code = 57451-4) 2.1 1.0-3.2 [facility]Blfederal [facility] institution hospital monocytes automated count (number/volume)2020-03-22 16:07:00* Test Item Value Reference Range Interpretation Comments Monocytes # (Auto) (test code = 742-7) 0.7 0.2-0.8 [facility] HospitalAutom[facility] blood eosinophil count 2020-03-22 16:07:00* Test Item Value Reference Range Interpretation Comments Eosinophils # (Auto) (test code = 711-2) 0.2 0.0-0.4 [facility] HospitalAutom[facility] blood basophil count (count/volume)2020-03-22 16:07:00* Test Item Value Reference Range Interpretation Comments Basophils # (Auto) (test code = 704-7) 0.0 0.0-0.1 [facility] HospitalFluoroscopic procedure less than one hour mjmbdrgr6534-11-13 16:07:00* Test Item Value Reference Range Interpretation Comments Absolute Immature Granulocyte (auto (nimo t code = Absolute Immature Granulocyte (auto) 0.02 0-0.1 [facility] or plasma sodium measurement (moles/volume)2020-03-22 16:07:00* Test Item Value Reference Range Interpretation Comments Sodium Level (test code = 2951-2) 142 136-145 [facility] or plasma potassium measurement (moles/volume)2020-03-22 16:07:00* Test Item Value Reference Range Interpretation Comments Potassium Level (test code = 2823-3) 4.0 3.5-5.1 [facility] or plasma chloride measurement (moles/volume)2020-03-22 16:07:00* Test Item Value Reference Range Interpretation Comments Chloride Level (test code = 2075-0) 107 98-107 [facility] or plasma carbon dioxide, total measurement (moles/volume)2020-03-22 16:07:00* Test Item Value Reference Range Interpretation Comments Carbon Dioxide Level (test code = 2028-9) 24 22-29 [facility] or plasma anion [id number] 16:07:00* Test Item Value Reference Range Interpretation Comments Anion Gap (test code = 05537-4) 15.0 8-16 [facility] or plasma urea nitrogen measurement (mass/volume)2020-03-22 16:07:00* Test Item Value Reference Range Interpretation Comments Blood Urea Nitrogen (test code = 3094-0) 21 7-26 [facility] or plasma creatinine measurement (mass/volume)2020-03-22 16:07:00* Test Item Value Reference Range Interpretation Comments Creatinine (test code = 2160-0) 1.00 0.57-1.11 [facility] or plasma urea nitrogen/creatinine mass rrpiw6190-16-12 16:07:00* Test Item Value Reference Range Interpretation Comments BUN/Creatinine Ratio (test code = 3097-3) 21 6-25 [facility] HospitalEstimated glomerular filtration rate (GFR) kvtyfqwssgfst1061-50-22 16:07:00* Test Item Value Reference Range Interpretation Comments Estimat Glomerular Filtration Rate (test code = 573488733) 59 >60 Ranges were taken from the National Kidney Disease Education Program and the [facility] literature.Reference ranges:60 or greater: Vgkqvh50-64 ( for 3 consecutive months): Chronic kidney disease 15 or less: Kidney failureSt. Joseph Health College Station HospitalGlucose edhcujvoufa9804-63-10 16:07:00* Test Item Value Reference Range Interpretation Comments Glucose Level (test code = VIT6015) 99 74-118 [facility] or plasma calcium measurement (mass/volume)2020-03-22 16:07:00* Test Item Value Reference Range Interpretation Comments Calcium Level (test code = 01432-4) 8.5 8.4-10.2 [facility] or plasma total bilirubin measurement (mass/volume)2020-03-22 16:07:00* Test Item Value Reference Range Interpretation Comments Total Bilirubin (test code = 1975-2) 0.1 0.2-1.2 [facility] HospitalFluoroscopic procedure less than one hour yilqicrd3610-30-34 16:07:00* Test Item Value Reference Range Interpretation Comments Aspartate Amino Transf (AST/SGOT) (test code = Aspartate Amino Transf (AST/SGOT)) 12 5-34 [facility] or plasma alanine aminotransferase measurement (enzymatic activity/volume)2020-03-22 16:07:00* Test Item Value Reference Range Interpretation Comments Alanine Aminotransferase (ALT/SGPT) (test code = 1742-6) 11 0-55 [facility] or plasma protein measurement (mass/volume)2020-03-22 16:07:00* Test Item Value Reference Range Interpretation Comments Total Protein (test code = 2885-2) 6.9 6.5-8.1 [facility] or plasma albumin measurement (mass/volume)2020-03-22 16:07:00* Test Item Value Reference Range Interpretation Comments Albumin (test code = 1751-7) 4.3 3.5-5.0 [facility] HospitalPlasma globulin measurement (mass/volume) 2020-03-22 16:07:00* Test Item Value Reference Range Interpretation Comments Globulin (test code = 77538-5) 2.6 2.3-3.5 [facility] or plasma albumin/globulin mass [id number] 16:07:00* Test Item Value Reference Range Interpretation Comments Albumin/Globulin Ratio (test code = 1759-0) 1.7 0.8-2.0 [facility] or plasma alkaline phosphatase measurement (enzymatic activity/volume)2020-03-22 16:07:00* Test Item Value Reference Range Interpretation Comments Alkaline Phosphatase (test code = 6768-6) 56 40-150 [facility] or plasma triglyceride measurement (mass/volume)2020-03-22 16:07:00* Test Item Value Reference Range Interpretation Comments Triglycerides Level (test code = 2571-8) 168 0-149 [facility] or plasma cholesterol measurement (mass/volume)2020-03-22 16:07:00* Test Item Value Reference Range Interpretation Comments Cholesterol Level (test code = 2093-3) 151 0-199 Less than 200 mg/dL Low Rrub772 - 239 mg/dL Borderline Tlax183 m g/dl and greater High Risk [facility]ererum or plasma cholesterol in LDL measurement (mass/volume) 2020-03-22 16:07:00* Test Item Value Reference Range Interpretation Comments LDL Cholesterol (test code = 2089-1) 57 60-130 [facility] cholesterol in HDL measurement (mass/volume)2020-03-22 16:07:00* Test Item Value Reference Range Interpretation Comments HDL Cholesterol (test code = 2085-9) 60 40-60 [facility] or plasma total cholesterol/cholesterol in HDL mass eiirc5966-70-11 16:07:00* Test Item Value Reference Range Interpretation Comments Cholesterol/HDL Ratio (test code = 9830-1) 2.5 3.0-3.6 [facility] HospitalBlood cobalamin (vitamin B12) measurement (mass/volume)2020-03-22 16:07:00* Test Item Value Reference Range Interpretation Comments Vitamin B12 Level (test code = 49133-7) 1211 213-816 [facility] HospitalCXR 1 VEW - [id number] 12:54:00 [facility] [address] [address] Patient Name: RAFFI RIOS MR #: [id number] : 1970 Age/Sex: 49/F Req #: [id number] Adm Physician: Ordered by: DAVID DANIELLE MD Report #: [id number] Location: [facility]/Bed: Procedure: [id number] [facility]: 01/[facility] Exam Time: 1244 REPORT STATUS: Signed TECHNIQUE: Fron familia view of the chest. INDICATION: cough [id number] ERIKA RISON: 09/08/2019 IMPRESSION: Lines and hardware: Stable. Heart and med iastinum: Stable. Lungs and pleura: No focal airspace consolidation. Right mid lung zone subcentimeter calcified granuloma. No pleural effusion. No pneumotho rax. Soft tissues and bones: No acute abnormality. Signed by: Bethany Israel MD on 01/05/2020 12:56 PM Dictated By: PRATIMA ISRAEL DO Elec tronically Signed By: PRATIMA ISRAEL DO on 01/05/20 1256 Transcribed By: ZELDA Brush on 01/05/20 1256 COPY TO: DAVID DANIELLE MD Fluoroscopic procedure less than one hour [id number] 12:18:00* Test Item Value Reference Range Interpretation Comments Coronavirus (PCR) (test code = Coronavirus (PCR)) NOT DETECTED NOTD ETECTED SARS-COV2/RT-PCRNegative results do not preclude SARS-CoV-2 infection and should not be used as the sole basis for patient management decisions. Negative result s must be combined with clinical observations, patient history, and epidemiologi simeon information. A false negative result may occur if a specimen is improperly c ollected, transported or handled.The limit of detection for this assay is 250 co pies/mLThe SARS-CoV-2 test is a rapid, real-time RT-PCR test intended for the qu alitative detection of nucleic acid from SARS-CoV-2 in nasopharyngeal swab speci men collected from individuals suspected of COVID-19 by their healthcare provide r. This test has not been Food and Drug Administration (FDA) cleared or approved and has been authorized by FDA under an Emergency Use Authorization (EUA). This EUA will be effective until the declaration that circumstances exist justifying the authorization of the emergency use of in vitro diagnostic test for detectio n and or diagnosis of COVID-19 is terminated under section 564(b) of the Act, or the the EUA is revoked under 564(g) of the ACT.Testing performed by [address] CERVICAL AP LAT FLEX [id number] 09:54:[address] [place] [address] Patient Name: RAFFI RIOS MR #: [id number] : [birth year] Age/Sex: 48/F Req #: [id number] Adm Physician: Ordered by: GIANNA AUSTIN MD Report #: [id number] Location: [facility] Room/Bed: Procedure: [id number] DX/SPINE CERVICAL AP LAT FLEX EXT Exam Date: 10/11/19 Exam Time: 938 REPORT STATUS: Signed Cervical spine, 4 views Clinical indications: Cervical disc basilio iation Comparison: 09/10/2019 Findings: AP, neutral lateral, lateral flexion, lateral extension views. The patient is status post anterior cervi simeon discectomy and fusion at C5-C6. Alignment is anatomic. There is no evidenc e of pathologic motion on flexion or extension views. There is no prevertebral soft tissue swelling. Impression: Status post C5-C6 fusion and discecto my. Normal anatomic alignment. No pathologic motion. Signed by: Baltazar Jones MD on 10/11/2019 9:57 AM Dictated By: BALTAZAR JONES MD Electr onically Signed By: BALTAZAR JONES MD on 10/11/19956 Transcribed By: ZELDA Brush on 10/11/19956 COPY TO: GIANNA AUSTIN MD C-SPINE 2 VIEWS AP [id number] 07:19:00 [place] [address] Patient Name: RAFFI RIOS MR #: [id number] : 1970 Age/Sex: 48/F Req #: [id number] Adm Physician: GIANNA AUSTIN MD Ordered by: GIANNA AUSTIN MD Report #: [id number] Location: [facility] Room[facility]Bed: [facility] Procedure: [id number] DX/C-SPINE 2 VIEWS AP LATERAL Exam Date: 09/10/19 Exam Time: 0650 REPORT STATUS : Signed Cervical Spine Two Views CPT code: 58304 Indication: Posto p Technique: AP and lateral views of cervical spine obtained. Comparis on: MRI cervical spine 08/25/2019 Findings: Cervical vertebral bodies ca n be visualized to C7. The patient is status post anterior cervical discectom y and fusion at C5-6. Cervical hardware is intact without lucency surrounding the screws. There is diffuse prevertebral soft tissue swelling. The cervical spine is diffusely straightened but in anatomic alignment. The facets and sp inous processes are normally aligned. Alignment is maintained on the AP view. The lateral masses of C1 are symmetric. The dens is intact. The skull base and upper chest are normal. IMPRESSION: Postoperative changes of the cervical spine at C5-6 with diffuse prevertebral soft tissue swelling. No niyah lignment. Signed by: Dr. Denzel Mcintyre MD on 09/10/2019 7:24 AM Dictated By: DENZEL MCINTYRE MD 3 Transcribed By: MERA on 09/10/19723 COPY TO: GIANNA ENGLISH MD Urine Ckzq1372-74-70 07:01:00* Test Item Value Reference Range Interpretation Comments Urine Test (test code = 2106-3) NEGATIVE NEGATIVE [facility] HospitalUrine human chorionic gonadotropin (hCG) gypdbnyps4611-22-20 05:47:00* Test Item Value Reference Range Interpretation Comments Urine Test (test code = 2106-3) NEGATIVE NEGATIVE [facility] HospitalUrine human chorionic gonadotropin (hCG) awpntxwrv3890-83-13 05:47:00* Test Item Value Reference Range Interpretation Comments Urine Test (test code = 2106-3) NEGATIVE NEGATIVE [facility] Centerodium Lxapa2065-46-71 14:18:00* Test Item Value Reference Range Interpretation Comments Sodium Level (test code = 2951-2) 140 136-145 [facility] HospitalPotassium Dxwid3866-57-59 14:18:00* Test Item Value Reference Range Interpretation Comments Potassium Level (test code = 2823-3) 3.9 3.5-5.1 [facility] HospitalChloride Ezowc7703-53-90 14:18:00* Test Item Value Reference Range Interpretation Comments Chloride Level (test code = 2075-0) 104 98-107 [facility] HospitalCarbon Dioxide Zrszu9199-57-55 14:18:00* Test Item Value Reference Range Interpretation Comments Carbon Dioxide Level (test code = 2028-9) 30 22-[address] [facility] HospitalAnion Ffh6437-23-54 14:18:00* Test Item Value Reference Range Interpretation Comments Anion Gap (test code = 90582-5) 9.9 8-16 [facility] HospitalBlood Urea Zlzcvudp2566-17-19 14:18:00* Test Item Value Reference Range Interpretation Comments Blood Urea Nitrogen (test code = 3094-0) 15 7-26 [facility] HospitalCreatinine2020-02-19 14:18:00* Test Item Value Reference Range Interpretation Comments Creatinine (test code = 2160-0) 0.76 0.57-1.11 [facility] HospitalBUN/Creatinine Ewbke5880-39-15 14:18:00* Test Item Value Reference Range Interpretation Comments BUN/Creatinine Ratio (test code = 3097-3) 20 6- [facility] HospitalEstimat Glomerular Filtration Rate 2019-09-08 14:18:00* Test Item Value Reference Range Interpretation Comments Estimat Glomerular Filtration Rate (test code = 602690603) > 60 >60 Ranges were taken from the National Kidney Disease Education Program and the [facility] Kid[facility] Foundation literature.Reference ranges:60 or greater: Uwycla37-10 ( for 3 consecutive months): Chronic kidney disease 15 or less: Kidney failureSt. Joseph Health College Station HospitalGlucose Jehpx4794-42-02 14:18:00* Test Item Value Reference Range Interpretation Comments Glucose Level (test code = JGY4547) 87 74-118 [facility] HospitalCalcium Vkzww6408-07-96 14:18:00* Test Item Value Reference Range Interpretation Comments Calcium Level (test code = 24101-7) 9.2 8.4-10.2 [facility] HospitalProthrombin Xjzy5549-29-35 14:15:00* Test Item Value Reference Range Interpretation Comments Prothrombin Time (test code = 5902-2) 13.1 11.9-14.5 [facility] HospitalProthromb Time International Ratio 2019-09-08 14:15:00* Test Item Value Reference Range Interpretation Comments Prothromb Time International Ratio (test code = 6301-6) 0.94 Oral Anticoagulant Therapy INR Values:1. Low Intensity Therapy 1.5 - 2.02 . Moderate Intensity Therapy 2.0 - 3.03. High Intensity Therapy(1) 2.5 - 3. 54. High Intensity Therapy(2) 3.0 - 4.05. Panic Value INR > 5.0 [facility] HospitalActivated Partial Thromboplast Time 2019-09-08 14:15:00* Test Item Value Reference Range Interpretation Comments Activated Partial Thromboplast Time (test code = 38397-7) 27.4 23.8-35.5 [facility] HospitalWhite Blood Qvyze6283-84-41 14:07:00* Test Item Value Reference Range Interpretation Comments White Blood Count (test code = 6690-2) 7.60 4.8-10.8 [facility] HospitalRed Blood Tqeyl3625-01-96 14:07:00* Test Item Value Reference Range Interpretation Comments Red Blood Count (test code = 789-8) 3.75 3.6-5.1 [facility] HospitalHemoglobin2020-02-19 14:07:00* Test Item Value Reference Range Interpretation Comments Hemoglobin (test code = 37935-0) 10.3 12.0-16.[address] [facility] HospitalHematocrit2020-02-19 14:07:00* Test Item Value Reference Range Interpretation Comments Hematocrit (test code = 4544-3) 33.0 34.2-44.[address] [facility] HospitalMean Corpuscular Kworbj6845-37-22 14:07:00* Test Item Value Reference Range Interpretation Comments Mean Corpuscular Volume (test code = 787-2) 88.0 81-99 [facility] HospitalMean Corpuscular Mkiyhvnhdy4294 14:07:00* Test Item Value Reference Range Interpretation Comments Mean Corpuscular Hemoglobin (test code = 785-6) 27.5 28-[address] [facility] HospitalMean Corpuscular Hemoglobin Concent 2019-09-08 14:07:00* Test Item Value Reference Range Interpretation Comments Mean Corpuscular Hemoglobin Concent (test code = 786-4) 31.2 31-35 [facility] HospitalRed Cell Distribution Noprw0077-61-37 14:07:00* Test Item Value Reference Range Interpretation Comments Red Cell Distribution Width (test code = 93719-4) 15.6 11.7 -14.[address] [facility] HospitalPlatelet Lopab2435-24-13 14:07:00* Test Item Value Reference Range Interpretation Comments Platelet Count (test code = 777-3) 344 140-360 [facility] HospitalNeutrophils (%) (Auto)2019-09-08 14:07:00 * Test Item Value Reference Range Interpretation Comments Neutrophils (%) (Auto) (test code = 42431-3) 67.7 38.7-80.0 [facility] HospitalLymphocytes (%) (Auto)2019-09-08 14:07:00 * Test Item Value Reference Range Interpretation Comments Lymphocytes (%) (Auto) (test code = 736-9) 22.9 18.0-39.1 [facility] HospitalMonocytes (%) (Auto)2019-09-08 14:07:00* Test Item Value Reference Range Interpretation Comments Monocytes (%) (Auto) (test code = 5905-5) 6.6 4.4-11.3 [facility] HospitalEosinophils (%) (Auto)2019-09-08 14:07:00 * Test Item Value Reference Range Interpretation Comments Eosinophils (%) (Auto) (test code = 713-8) 1.8 0.0-6.0 [facility] HospitalBasophils (%) (Auto)2019-09-08 14:07:00* Test Item Value Reference Range Interpretation Comments Basophils (%) (Auto) (test code = 706-2) 0.5 0.0-1.0 [facility] HospitalIM GRANULOCYTES %2019-09-08 14:07:00* Test Item Value Reference Range Interpretation Comments IM GRANULOCYTES % (test code = IM GRANULOCYTES %) 0.5 0.0- 1.0 [facility] HospitalNeutrophils # (Auto)2019-09-08 14:07:00* Test Item Value Reference Range Interpretation Comments Neutrophils # (Auto) (test code = 751-8) 5.1 2.1-6.9 [facility] HospitalLymphocytes # (Auto)2019-09-08 14:07:00* Test Item Value Reference Range Interpretation Comments Lymphocytes # (Auto) (test code = 70298-5) 1.7 1.0-3.2 [facility] HospitalMonocytes # (Auto)2019-09-08 14:07:00* Test Item Value Reference Range Interpretation Comments Monocytes # (Auto) (test code = 742-7) 0.5 0.2-0.8 [facility] HospitalEosinophils # (Auto)2019-09-08 14:07:00* Test Item Value Reference Range Interpretation Comments Eosinophils # (Auto) (test code = 711-2) 0.1 0.0-0.4 [facility] HospitalBasophils # (Auto)2019-09-08 14:07:00* Test Item Value Reference Range Interpretation Comments Basophils # (Auto) (test code = 704-7) 0.0 0.0-0.1 [facility] HospitalAbsolute Immature Granulocyte (auto 2019-09-08 14:07:00* Test Item Value Reference Range Interpretation Comments Absolute Immature Granulocyte (auto (nimo t code = Absolute Immature Granulocyte (auto) 0.04 0-0.1 [facility] HospitalCHEST 2 FCMJM7698-05-53 14:07:00 [facility] [address] [place] [address] Patient Name: RAFFI RIOS MR #: [id number] : [birth year] Age/Sex: 48/F Req #: [id number] Adm Physician: Ordered by: GIANNA AUSTIN MD Report #: [id number] Location: OR Room/Bed: Procedure: [id number] DX/CHEST 2 VIEWS Exam Date: 09/08/19 Exam Time: 1 340 REPORT STATUS: Signed EXAM: CHEST 2 VIEWS DATE: 09/08/2019 1:29 PM INDICATION: Preoperative, pre admission evaluation COMPARISON: 01/18/2019 FINDINGS: The trachea is midline. The lungs are symmetrically expanded without evidence for large focal consolidation, pneumothorax, or significant pleural effusion. A stable calcif ied granuloma is noted within the right upper/midlung zone. The cardiomedia stinal silhouette and pulmonary vasculature are within normal limits. No acute osseous abnormality is identified. The surrounding soft tissues are unremarka ble. IMPRESSION: No acute cardiopulmonary process identified. Signed by: Dr. Adan Herrera MD on 09/08/2019 2:08 PM Dictated By: ADAN DE OLIVEIRA MD 1408 Transcribe d By: MERA on 09/08/19 1408 COPY TO: GIANNA AUSTIN MD Blood leukocytes automated count (number/volume)2019-09-08 12:55:00* Test Item Value Reference Range Interpretation Comments White Blood Count (test code = 6690-2) 7.60 4.8-10.8 [facility] HospitalBlood erythrocytes automated count (number/volume)2019-09-08 12:55:00* Test Item Value Reference Range Interpretation Comments Red Blood Count (test code = 789-8) 3.75 3.6-5.1 [facility] HospitalBlood hemoglobin measurement (moles/volume)2019-09-08 12:55:00* Test Item Value Reference Range Interpretation Comments Hemoglobin (test code = 20745-8) 10.3 12.0-16.0 [facility] HospitalAutomated blood hematocrit (volume fraction)2019-09-08 12:55:00* Test Item Value Reference Range Interpretation Comments Hematocrit (test code = 4544-3) 33.0 34.2-44.1 [facility] HospitalAutomated erythrocyte mean corpuscular ophysm1949-97-25 12:55:00* Test Item Value Reference Range Interpretation Comments Mean Corpuscular Volume (test code = 787-2) 88.0 81-99 [facility] HospitalAutomated erythrocyte mean corpuscular hemoglobin (mass per erythrocyte)2019-09-08 12:55:00* Test Item Value Reference Range Interpretation Comments Mean Corpuscular Hemoglobin (test code = 785-6) 27.5 28-32 [facility] HospitalAutomated erythrocyte mean corpuscular hemoglobin concentration measurement (mass/volume)2019-09-08 12:55:00* Test Item Value Reference Range Interpretation Comments Mean Corpuscular Hemoglobin Concent (test code = 786-4) 31.2 31-35 [facility] HospitalRDW AvwZi-Gkj2073-10-19 12:55:00* Test Item Value Reference Range Interpretation Comments Red Cell Distribution Width (test code = 55120-5) 15.6 11.7 -14.4 [facility] HospitalAutomated blood platelet count (count/volume)2019-09-08 12:55:00* Test Item Value Reference Range Interpretation Comments Platelet Count (test code = 777-3) 344 140-360 [facility] HospitalAutunc health lenoired blood segmented neutrophil count as percentage of total rjvisynxvj8105-06-85 12:55:00* Test Item Value Reference Range Interpretation Comments Neutrophils (%) (Auto) (test code = 32725-4) 67.7 38.7-80.0 [facility] HospitalAutomated blood lymphocyte count as percentage ot total kbrgqbvvbt9684-24-77 12:55:00* Test Item Value Reference Range Interpretation Comments Lymphocytes (%) (Auto) (test code = 736-9) 22.9 18.0-39.1 [facility] HospitalAutomated blood monocyte count as percentage of total qndkpurgal3613-10-53 12:55:00* Test Item Value Reference Range Interpretation Comments Monocytes (%) (Auto) (test code = 5905-5) 6.6 4.4-11.3 [facility] HospitalAutomated blood eosinophil count as percentage of total jlytlwggqh2802-75-98 12:55:00* Test Item Value Reference Range Interpretation Comments Eosinophils (%) (Auto) (test code = 713-8) 1.8 0.0-6.0 [facility] HospitalAutomated blood basophil count as percentage of total smompydmsn6630-34-99 12:55:00* Test Item Value Reference Range Interpretation Comments Basophils (%) (Auto) (test code = 706-2) 0.5 0.0-1.0 [facility] HospitalFluoroscopic procedure less than one hour tmtlhljm2511-94-89 12:55:00* Test Item Value Reference Range Interpretation Comments IM GRANULOCYTES % (test code = IM GRANULOCYTES %) 0.5 0.0- 1.0 [facility] HospitalAutomated blood neutrophil count 2019-09-08 12:55:00* Test Item Value Reference Range Interpretation Comments Neutrophils # (Auto) (test code = 751-8) 5.1 2.1-6.9 [facility] HospitalBlood lymphocytes count (number/volume) 2019-09-08 12:55:00* Test Item Value Reference Range Interpretation Comments Lymphocytes # (Auto) (test code = 95103-4) 1.7 1.0-3.2 [facility] HospitalBlood monocytes automated count (number/volume)2019-09-08 12:55:00* Test Item Value Reference Range Interpretation Comments Monocytes # (Auto) (test code = 742-7) 0.5 0.2-0.8 [facility] HospitalAutomated blood eosinophil count 2019-09-08 12:55:00* Test Item Value Reference Range Interpretation Comments Eosinophils # (Auto) (test code = 711-2) 0.1 0.0-0.4 [facility] HospitalAutomated blood basophil count (count/volume)2019-09-08 12:55:00* Test Item Value Reference Range Interpretation Comments Basophils # (Auto) (test code = 704-7) 0.0 0.0-0.1 [facility] HospitalFluoroscopic procedure less than one hour aqfquqyk2498-70-80 12:55:00* Test Item Value Reference Range Interpretation Comments Absolute Immature Granulocyte (auto (nimo t code = Absolute Immature Granulocyte (auto) 0.04 0-0.1 [facility] HospitalProthrombin time (PT) in platelet poor plasma by coagulation znpmk3434-53-19 12:55:00* Test Item Value Reference Range Interpretation Comments Prothrombin Time (test code = 5902-2) 13.1 11.9-14.5 [facility] HospitalINR in Platelet poor plasma by Coagulation zcrko1778-01-70 12:55:00* Test Item Value Reference Range Interpretation Comments Prothromb Time International Ratio (test code = 6301-6) 0.94 Oral Anticoagulant Therapy INR Values:1. Low Intensity Therapy 1.5 - 2.02 . Moderate Intensity Therapy 2.0 - 3.03. High Intensity Therapy(1) 2.5 - 3. 54. High Intensity Therapy(2) 3.0 - 4.05. Panic Value INR > 5.0 [facility] HospitalActivated partial thromboplastin time (aPTT) in platelet poor plasma by coagulation qtvzi0068-57-53 12:55:00* Test Item Value Reference Range Interpretation Comments Activated Partial Thromboplast Time (test code = 51961-4) 27.4 23.8-35.5 [facility]ererum or plasma sodium measurement (moles/volume)2019-09-08 12:55:00* Test Item Value Reference Range Interpretation Comments Sodium Level (test code = 2951-2) 140 136-145 [facility] Centererum or plasma potassium measurement (moles/volume)2019-09-08 12:55:00* Test Item Value Reference Range Interpretation Comments Potassium Level (test code = 2823-3) 3.9 3.5-5.1 [facility] Centererum or plasma chloride measurement (moles/volume)2019-09-08 12:55:00* Test Item Value Reference Range Interpretation Comments Chloride Level (test code = 2075-0) 104 98-107 [facility] Centererum or plasma carbon dioxide, total measurement (moles/volume)2019-09-08 12:55:00* Test Item Value Reference Range Interpretation Comments Carbon Dioxide Level (test code = 2028-9) 30 22-29 [facility] Centererum or plasma anion evq2844-17-69 12:55:00* Test Item Value Reference Range Interpretation Comments Anion Gap (test code = 96400-2) 9.9 8-16 [facility] Centererum or plasma urea nitrogen measurement (mass/volume)2019-09-08 12:55:00* Test Item Value Reference Range Interpretation Comments Blood Urea Nitrogen (test code = 3094-0) 15 7-26 [facility] Centererum or plasma creatinine measurement (mass/volume)2019-09-08 12:55:00* Test Item Value Reference Range Interpretation Comments Creatinine (test code = 2160-0) 0.76 0.57-1.11 [facility] Centererum or plasma urea nitrogen/creatinine mass puezq6264-00-24 12:55:00* Test Item Value Reference Range Interpretation Comments BUN/Creatinine Ratio (test code = 3097-3) 20 6-25 [facility] HospitalEstimated glomerular filtration rate (GFR) qhhbarfmmafnm4880-79-24 12:55:00* Test Item Value Reference Range Interpretation Comments Estimat Glomerular Filtration Rate (test code = 721073552) > 60 >60 Ranges were taken from the National Kidney Disease Education Program and the [facility] Foundation literature.Reference ranges:60 or greater: Nkrvtn94-26 ( for 3 consecutive months): Chronic kidney disease 15 or less: Kidney failureSt. Joseph Health College Station HospitalGlucose tskopnwqvbd1184-88-25 12:55:00* Test Item Value Reference Range Interpretation Comments Glucose Level (test code = RKT6287) 87 74-118 [facility] Centererum or plasma calcium measurement (mass/volume)2019-09-08 12:55:00* Test Item Value Reference Range Interpretation Comments Calcium Level (test code = 88926-3) 9.2 8.4-10.2 [facility] HospitalProthrombin time (PT) in platelet poor plasma by coagulation emvvi5145-29-27 12:55:00* Test Item Value Reference Range Interpretation Comments Prothrombin Time (test code = 5902-2) 13.1 11.9-14.5 [facility] HospitalINR in Platelet poor plasma by Coagulation qmrfa5101-93-82 12:55:00* Test Item Value Reference Range Interpretation Comments Prothromb Time International Ratio (test code = 6301-6) 0.94 Oral Anticoagulant Therapy INR Values:1. Low Intensity Therapy 1.5 - 2.02 . Moderate Intensity Therapy 2.0 - 3.03. High Intensity Therapy(1) 2.5 - 3. 54. High Intensity Therapy(2) 3.0 - 4.05. Panic Value INR > 5.0 [facility] HospitalActivated partial thromboplastin time (aPTT) in platelet poor plasma by coagulation jgsah2222-28-01 12:55:00* Test Item Value Reference Range Interpretation Comments Activated Partial Thromboplast Time (test code = 27362-7) 27.4 23.8-35.5 [facility] HospitalMRI SPINE CERVICAL QS9910-60-49 15:28:00 [place] [address] Patient Name: RAFFI RIOS MR #: [id number] : 10[birth year]19 Age/Sex: 48/F Req #: [id number] Adm Physician: Ordered by: AUDI GIRALDO M.D. Report #: [id number] Location: MRI Room/Bed: Procedure: 0205-0 007 MRI/MRI SPINE CERVICAL WO Exam Date: Exam Time: REPORT STATUS: Signed EXAMINAT ION: MRI of the cervical spine without contrast HISTORY: Neck pain, cervi simeon radiculopathy, headaches for the last month. COMPARISON: Cervical spine MR I 08/20/2018 TECHNIQUE: Sagittal T1, T2, STIR; axial T2, gradient echo. FI NDINGS: Curvature: Subtle reversal of the cervical lordosis centered at C5- C6 which may be related to muscle spasm or positional. Vertebrae: No evidenc e of neoplasm, infection, or fracture. Foramen magnum: No mass, Chiari malform ation, or basilar invagination. Spinal Cord: Normal size and signal intensit y. Soft Tissues: Unremarkable. Degenerative changes: C1-C2: U nremarkable. C2-C3: Unremarkable. C3-C4: Unremarkable. C4-C5: Mild symmetric disc bulge with a small posterior central annular f issure. No spinal canal or neural foraminal stenosis. C5-C6: New appro ximately 5 mm AP diameter slightly inferiorly migrated disc extrusion, resulti ng in moderate canal stenoses and flattening of the ventral spinal cord withou t abnormal signal of the cord. Mild uncovertebral arthrosis. Mild left foramin al narrowing. C6-C7: Minimal symmetric disc bulge with tiny 2 mm AP di ameter central disc protrusion, no significant canal or foraminal stenosis. No spinal cord compression. C7-T1: Unremarkable. IMPRESSION: 1. New central disc herniation at C5-C6 resulting in moderate canal stenoses without with flattening of the ventral cord but no abnormal signal within the cord. 2. Stable mild degenerative changes at C4-C5 and C6-7 without signi ficant spinal canal or neural foraminal stenosis. Signed by: Dr. Iqra ventura M.D. on 08/25/2019 3:40 PM Dictated By: IQRA STEINER MD 1540 Transcribed By: MERA on 08/25/19 1540 COPY TO: AUDI GIRLADO M.D. Creatine Kinase VT2413-26-35 11:10:00* Test Item Value Reference Range Interpretation Comments Creatine Kinase MB (test code = 66993-5) 0.70 0-5.0 [facility] HospitalTroponin C5114-66-02 11:10:00* Test Item Value Reference Range Interpretation Comments Troponin I (test code = TKN1223) < 0.001 0-0.300 [facility] HospitalCreatine Kinase QE3560-96-61 11:10:00* Test Item Value Reference Range Interpretation Comments Creatine Kinase MB (test code = 46520-2) 0.70 0-5.0 [facility] HospitalTroponin F9277-52-71 11:10:00* Test Item Value Reference Range Interpretation Comments Troponin I (test code = EMY7687) < 0.001 0-0.300 [facility] HospitalCreatine Zbujkt4270-95-00 11:03:00* Test Item Value Reference Range Interpretation Comments Creatine Kinase (test code = 2157-6) 73 29-168 [facility] HospitalCreatine Ojvqxc8850-55-23 11:03:00* Test Item Value Reference Range Interpretation Comments Creatine Kinase (test code = 2157-6) 73 29-168 [facility] HospitalB-Type Natriuretic Juwklyz5508-17-86 20:03:00* Test Item Value Reference Range Interpretation Comments B-Type Natriuretic Peptide (test code = 48735-1) 26.7 0-100 [facility] HospitalB-Type Natriuretic Ewfprkm8627-28-67 20:03:00* Test Item Value Reference Range Interpretation Comments B-Type Natriuretic Peptide (test code = 86357-0) 26.7 0-100 [facility] Aeixo4658-63-19 19:57:00* Test Item Value Reference Range Interpretation Comments Sodium Level (test code = 2951-2) 140 136-145 [facility] HospitalPotassium Ewkzy3383-19-56 19:57:00* Test Item Value Reference Range Interpretation Comments Potassium Level (test code = 2823-3) 3.4 3.5-5.[address] [facility] HospitalChloride Ivhzf9238-35-33 19:57:00* Test Item Value Reference Range Interpretation Comments Chloride Level (test code = 2075-0) 103 98-107 [facility] HospitalCarbon Dioxide Jxlyd4426-56-54 19:57:00* Test Item Value Reference Range Interpretation Comments Carbon Dioxide Level (test code = 2028-9) 27 22-29 [facility] HospitalAnion Xcg6284-98-04 19:57:00* Test Item Value Reference Range Interpretation Comments Anion Gap (test code = 10612-7) 13.4 8-16 [facility] HospitalBlood Urea Hpxwnthr6974-33-72 19:57:00* Test Item Value Reference Range Interpretation Comments Blood Urea Nitrogen (test code = 3094-0) 18 7-26 [facility] HospitalCreatinine2019-07-01 19:57:00* Test Item Value Reference Range Interpretation Comments Creatinine (test code = 2160-0) 0.81 0.57-1.11 [facility] HospitalBUN/Creatinine Fxrvj1627-40-40 19:57:00* Test Item Value Reference Range Interpretation Comments BUN/Creatinine Ratio (test code = 3097-3) 22 6- [facility] HospitalEstimat Glomerular Filtration Rate 2019-01-18 19:57:00* Test Item Value Reference Range Interpretation Comments Estimat Glomerular Filtration Rate (test code = 217206879) > 60 >60 Ranges were taken from the National Kidney Disease Education Program and the [facility] literature.Reference ranges:60 or greater: Iburls50-54 ( for 3 consecutive months): Chronic kidney disease 15 or less: Kidney failureSt. Joseph Health College [facility] HospitalGlucose Iiwbs3012-02-58 19:57:00* Test Item Value Reference Range Interpretation Comments Glucose Level (test code = XNR5469) 91 74-118 [facility] HospitalCalcium Wwnpo0126-52-53 19:57:00* Test Item Value Reference Range Interpretation Comments Calcium Level (test code = 54446-1) 9.2 8.4-10.2 [facility] HospitalTotal Aehaadiiz0682-92-93 19:57:00* Test Item Value Reference Range Interpretation Comments Total Bilirubin (test code = 1975-2) 0.3 0.2-1.2 [facility] HospitalAspartate Amino Transf (AST/SGOT) 2019-01-18 19:57:00* Test Item Value Reference Range Interpretation Comments Aspartate Amino Transf (AST/SGOT) (test code = Aspartate Amino Transf (AST/SGOT)) 16 5-34 [facility] HospitalAlanine Aminotransferase (ALT/SGPT) 2019-01-18 19:57:00* Test Item Value Reference Range Interpretation Comments Alanine Aminotransferase (ALT/SGPT) (test code = 1742-6) 13 0-55 [facility] HospitalTotal Fpaahoi9222-95-66 19:57:00* Test Item Value Reference Range Interpretation Comments Total Protein (test code = 2885-2) 7.2 6.5-8.1 [facility] HospitalAlbumin2019-07-01 19:57:00* Test Item Value Reference Range Interpretation Comments Albumin (test code = 1751-7) 4.1 3.5-5.0 [facility] HospitalGlobulin2019-07-01 19:57:00* Test Item Value Reference Range Interpretation Comments Globulin (test code = 76250-9) 3.1 2.3-3.5 [facility] HospitalAlbumin/Globulin Tsvhs0834-64-62 19:57:00 * Test Item Value Reference Range Interpretation Comments Albumin/Globulin Ratio (test code = 1759-0) 1.3 0.8-2.0 [facility] HospitalAlkaline Gokoudzgemh5417-89-03 19:57:00* Test Item Value Reference Range Interpretation Comments Alkaline Phosphatase (test code = 6768-6) 53 40-150 [facility] HospitalTosp[facility] fork hospital Ofsgvucma2750-11-90 19:57:00* Test Item Value Reference Range Interpretation Comments Total Bilirubin (test code = 1975-2) 0.3 0.2-1.2 [facility] HospitalAspartate Amino Transf (AST/SGOT) 2019-01-18 19:57:00* Test Item Value Reference Range Interpretation Comments Aspartate Amino Transf (AST/SGOT) (test code = Aspartate Amino Transf (AST/SGOT)) 16 5-34 [facility] HospitalAlanine Aminotransferase (ALT/SGPT) 2019-01-18 19:57:00* Test Item Value Reference Range Interpretation Comments Alanine Aminotransferase (ALT/SGPT) (test code = 1742-6) 13 0-55 [facility] HospitalTosp[facility] fork hospital Momfbvc1152-99-21 19:57:00* Test Item Value Reference Range Interpretation Comments Total Protein (test code = 2885-2) 7.2 6.5-8.1 [facility] HospitalAlbumin2019-07-01 19:57:00* Test Item Value Reference Range Interpretation Comments Albumin (test code = 1751-7) 4.1 3.5-5.0 [facility] HospitalGlobulin2019-07-01 19:57:00* Test Item Value Reference Range Interpretation Comments Globulin (test code = 24381-2) 3.1 2.3-3.5 [facility] HospitalAlbumin/Globulin Vrptw2711-26-55 19:57:00 * Test Item Value Reference Range Interpretation Comments Albumin/Globulin Ratio (test code = 1759-0) 1.3 0.8-2.0 [facility] HospitalAlkaline Clsbjsvngaj7189-02-99 19:57:00* Test Item Value Reference Range Interpretation Comments Alkaline Phosphatase (test code = 6768-6) 53 40-150 [facility] HospitalCT BRAIN QD7103-42-91 19:56:00 [facility] [address] [address] Patient Name: RAFFI RIOS MR #: [id number] : [birth year] Age/Sex: 48/F Req #: [id number] Adm Physician: Ordered by: VERA TUCKER DO Report #: [id number] Location: ER Room/Bed: Procedure: [id number] CT/CT BRAIN WO Exam Date: 01/18/19 Exam Time: 1931 REPORT STATUS: Signed History: He adaches. Comparison studies: None Technique: Axial images were obtaine d from the skull base to the vertex. Coronal and sagittal reconstructions ob tained from the axial data. Dose modulation, iterative reconstruction, and/or weight based adjustment of the mA/kV was utilized to reduce the radiation dose to as low as reasonably achievable. Findings: Scalp/skull: No ab normalities. No fractures, blastic or lytic lesions. Extra-axial spaces: No masses. No fluid collections. Brain sulci: Appropriate for age. Vent ricles: Normal in size and configuration. No hydrocephalus. Parenchyma: No abnormal densities. No masses, hemorrhage, acute or chronic cortical vascu lar insults. Sellar/suprasellar region: No abnormalities Craniocervical j unction: Patent foramen magnum. No Chiari one malformation. IMPRESSION: No abnormalities . Signed by: DR Zeferino Beal M.D. on 01/18/2019 7:58 PM Dictated By: ZEFERINO ROCHE MD 57 Transcribed By: MERA on 01/18/191957 COPY TO: VERA TUCKER DO D-Dimer Quantitative (PE/DVT)2019-01-18 19:47:00* Test Item Value Reference Range Interpretation Comments D-Dimer Quantitative (PE/DVT) (test code = 17408-6) 0.18 0. 00-0.45 As with all in vitro diagnostic tests, the test results should be interpreted by the physician in conjunction with clinical findings and other test results.Test results are reported in NEW D-dimer units(ug/mLFEU).[facility] HospitalD-Dimer Quantitative (PE/DVT)2019-01-18 19:47:00* Test Item Value Reference Range Interpretation Comments D-Dimer Quantitative (PE/DVT) (test code = 79420-6) 0.18 0. 00-0.45 As with all in vitro diagnostic tests, the test results should be interpreted by the physician in conjunction with clinical findings and other test results.Test results are reported in NEW D-dimer units(ug/mLFEU).[facility] HospitalCHEST 2 ACVON3470-55-19 19:45:[address] [address] Patient Name: RAFFI RIOS MR #: [id number] : 1970 Age/Sex: 48/F Req #: [id number] Adm Physician: Ordered by: VERA TUCKER DO Report #: [id number] Location: ER Room/Bed: Procedure: [id number] DX/CHEST 2 VIEWS Exam Date: 01/18/19 Exam Time: 1927 REPORT STATUS: Signed EXAMINATI ON: CHEST 2 VIEWS INDICATION: chest pain COMPARISON: Chest 07/29/2018 FINDINGS: PA and lateral views TUBES and LINES: None. LUNGS: Lungs are well inflated. Calcified granuloma right upper lobe.. T here is no evidence of pneumonia or pulmonary edema. PLEURA: No pleural effusion or pneumothorax. HEART AND MEDIASTINUM: The cardiomediastinal katalina houette is unremarkable. BONES AND SOFT TISSUES: No acute osseous lesi on. Soft tissues are unremarkable. UPPER ABDOMEN: No free air under the diaphragm. Surgical clips in the left upper abdomen. IMPRESSION: No acute thoracic abnormality. Signed by: Basil Browne MD on 01/18/2019 7 :46 PM Dictated By: BASIL BROWNE DO 45 Transcribed By: MERA on 01/18/191945 C OPY TO: VERA TUCKER DO White Blood Cslas3864-36-65 19:36:00* Test Item Value Reference Range Interpretation Comments White Blood Count (test code = 6690-2) 7.44 4.8-10.8 [facility] HospitalRed Blood Giagi0204-49-78 19:36:00* Test Item Value Reference Range Interpretation Comments Red Blood Count (test code = 789-8) 3.86 3.6-5.1 [facility] HospitalHemoglobin2019-07-01 19:36:00* Test Item Value Reference Range Interpretation Comments Hemoglobin (test code = 84041-9) 10.7 12.0-16.[address] [facility] HospitalHematocrit2019-07-01 19:36:00* Test Item Value Reference Range Interpretation Comments Hematocrit (test code = 4544-3) 34.3 34.2-44.1 [facility] HospitalMean Corpuscular Mwdqkg5109-68-69 19:36:00* Test Item Value Reference Range Interpretation Comments Mean Corpuscular Volume (test code = 787-2) 88.9 81-99 [facility] HospitalMean Corpuscular Uqicqstnes6454-55-79 19:36:00* Test Item Value Reference Range Interpretation Comments Mean Corpuscular Hemoglobin (test code = 785-6) 27.7 28-[address] [facility] HospitalMean Corpuscular Hemoglobin Concent 2019-01-18 19:36:00* Test Item Value Reference Range Interpretation Comments Mean Corpuscular Hemoglobin Concent (test code = 786-4) 31.2 31-35 [facility] HospitalRed Cell Distribution Zrsoz3644-73-15 19:36:00* Test Item Value Reference Range Interpretation Comments Red Cell Distribution Width (test code = 01320-8) 14.9 11.7 -14.[address] [facility] HospitalPlatelet Luyut7905-46-94 19:36:00* Test Item Value Reference Range Interpretation Comments Platelet Count (test code = 777-3) 336 140-360 [facility] HospitalNeutrophils (%) (Auto)2019-01-18 19:36:00 * Test Item Value Reference Range Interpretation Comments Neutrophils (%) (Auto) (test code = 51860-5) 54.0 38.7-80.0 [facility] HospitalLymphocytes (%) (Auto)2019-01-18 19:36:00 * Test Item Value Reference Range Interpretation Comments Lymphocytes (%) (Auto) (test code = 736-9) 34.8 18.0-39.1 [facility] HospitalMonocytes (%) (Auto)2019-01-18 19:36:00* Test Item Value Reference Range Interpretation Comments Monocytes (%) (Auto) (test code = 5905-5) 7.3 4.4-11.3 [facility] HospitalEosinophils (%) (Auto)2019-01-18 19:36:00 * Test Item Value Reference Range Interpretation Comments Eosinophils (%) (Auto) (test code = 713-8) 3.1 0.0-6.0 [facility] HospitalBasophils (%) (Auto)2019-01-18 19:36:00* Test Item Value Reference Range Interpretation Comments Basophils (%) (Auto) (test code = 706-2) 0.4 0.0-1.0 [facility] HospitalIM GRANULOCYTES %2019-01-18 19:36:00* Test Item Value Reference Range Interpretation Comments IM GRANULOCYTES % (test code = IM GRANULOCYTES %) 0.4 0.0- 1.0 [facility] HospitalNeutrophils # (Auto)2019-01-18 19:36:00* Test Item Value Reference Range Interpretation Comments Neutrophils # (Auto) (test code = 751-8) 4.0 2.1-6.9 [facility] HospitalLymphocytes # (Auto)2019-01-18 19:36:00* Test Item Value Reference Range Interpretation Comments Lymphocytes # (Auto) (test code = 29861-7) 2.6 1.0-3.2 [facility] HospitalMonocytes # (Auto)2019-01-18 19:36:00* Test Item Value Reference Range Interpretation Comments Monocytes # (Auto) (test code = 742-7) 0.5 0.2-0.8 [facility] HospitalEosinophils # (Auto)2019-01-18 19:36:00* Test Item Value Reference Range Interpretation Comments Eosinophils # (Auto) (test code = 711-2) 0.2 0.0-0.4 [facility] HospitalBasophils # (Auto)2019-01-18 19:36:00* Test Item Value Reference Range Interpretation Comments Basophils # (Auto) (test code = 704-7) 0.0 0.0-0.1 [facility] HospitalAbsolute Immature Granulocyte (auto 2019-01-18 19:36:00* Test Item Value Reference Range Interpretation Comments Absolute Immature Granulocyte (auto (nimo t code = Absolute Immature Granulocyte (auto) 0.03 0-0.1 [facility] Centertress [facility] - Treadmill PEJG7569-85-18 19:13:00 [facility] [address] [address] Patient Name : RAFFI RIOS MR #: [id number] : 1970 Age/Sex: 48/F Adm Physician : CLARE LANGFORD MD Admit Date : 12/29/18 Location : [place] Room/Bed : REPORT: Myoview Str ess Test DATE OF STUDY: 12/29/2018 09:16:00 Stress Test - Treadmill ON LY PROCEDURE INDICATION: Chest pain, palpitations, and syncope. INT ERPRETING AND SUPERVISING PHYSICIAN: Clare Rose MD, Interv entional Cardiology PROCEDURE PERFORMED: Single day rest/stress test mack hnetium myocardial perfusion SPECT stress test. INTERPRETATION: At res t, blood pressure 111/72 and heart rate 58. Resting EKG shows sinus bradycard ia with poor R-wave progression in precordial leads. After undergoing Harrison p rotocol treadmill stress test, at peak heart rate in stage IV of Harrison protocol was 140 beats per minute and blood pressure at peak was 186/121. The pa tient did not describe any exertional chest discomfort. EKG did not reveal any significant ST changes or arrhythmias throughout stress or recovery. 1 minute heart rate recovery was good. Myocardial perfusion reveals a small-sized mil d severity apical anterior stress-induced perfusion defect. Gated images demo nstrate preserved left ventricular systolic function, normal regional wall mot ion, and left ventricular ejection fraction of 67%. CONCLUSIONS: 1. Normal hemodynamic response to treadmill stress test. 2. Normal electrocardio graphic response to treadmill stress. 3. Good exercise capacity. 4. Abnormal myocardial perfusion with small sized apical anterior stress-induced perfusio n defect. 5. Preserved left ventricular systolic function with normal regiona l wall motion and left ventricular ejection fraction of 67%. Clare Rose MD AFV/MO DL /[id number] Signature Date Dictated By: CLARE MCCORMACK MD Transcribed By: MODL on 12/29/18 <Electronically signed by CLARE MCCORMACK MD><<Signature on File>>12/30/18 0941 COPY TO: Triglycerides Ztpez3487-04-89 07:39:00* Test Item Value Reference Range Interpretation Comments Triglycerides Level (test code = 2571-8) 121 0-149 [facility] HospitalCholesterol Fczpd9113-69-61 07:39:00* Test Item Value Reference Range Interpretation Comments Cholesterol Level (test code = 2093-3) 233 0-199 H Less than 200 mg/dL Low Cgmi078 - 239 mg/dL Borderline Igeq267 m g/dl and greater High Risk [facility] HospitalLDL Uwvmqlwlfjw4218-89-92 07:39:00* Test Item Value Reference Range Interpretation Comments LDL Cholesterol (test code = 2089-1) 137 60-[address] [facility] HospitalHDL Vkmxtmnralv6349-73-88 07:39:00* Test Item Value Reference Range Interpretation Comments HDL Cholesterol (test code = 2085-9) 72 40-[address] [facility] HospitalCholesterol/HDL Ajyfw4568-37-38 07:39:00 * Test Item Value Reference Range Interpretation Comments Cholesterol/HDL Ratio (test code = 9830-1) 3.2 3.0-3.6 [facility] HospitalTriglycerides Pvkpd7762-12-23 07:39:00* Test Item Value Reference Range Interpretation Comments Triglycerides Level (test code = 2571-8) 121 0-149 [facility] HospitalCholesterol Ahnoz2330-74-42 07:39:00* Test Item Value Reference Range Interpretation Comments Cholesterol Level (test code = 2093-3) 233 0-199 H Less than 200 mg/dL Low Scgk272 - 239 mg/dL Borderline Dsoj473 m g/dl and greater High Risk [facility] HospitalLDL Pzghswbwlbf2992-05-18 07:39:00* Test Item Value Reference Range Interpretation Comments LDL Cholesterol (test code = 2089-1) 137 60-[address] [facility] HospitalHDL Vgyihqpmglr4212-88-93 07:39:00* Test Item Value Reference Range Interpretation Comments HDL Cholesterol (test code = 2085-9) 72 40-[address] [facility] HospitalCholesterol/HDL Falos6600-51-90 07:39:00 * Test Item Value Reference Range Interpretation Comments Cholesterol/HDL Ratio (test code = 9830-1) 3.2 3.0-3.6 [facility] HospitalVitamin B12 Ffazf7160-67-49 14:47:00* Test Item Value Reference Range Interpretation Comments Vitamin B12 Level (test code = 84756-1) 856 213-[address] [facility] HospitalVitamin B12 Twkkn9401-68-14 14:47:00* Test Item Value Reference Range Interpretation Comments Vitamin B12 Level (test code = 55086-8) 856 213-[address] [facility] HospitalThyroid Stimulating Hormone (TSH) 2018-12-02 14:22:00* Test Item Value Reference Range Interpretation Comments Thyroid Stimulating Hormone (TSH) (test code = 80492-8) 0.770 0.350-4.940 [facility] HospitalThyroid Stimulating Hormone (TSH) 2018-12-02 14:22:00* Test Item Value Reference Range Interpretation Comments Thyroid Stimulating Hormone (TSH) (test code = 81769-7) 0.770 0.350-4.940 [facility]2019-05-15 14:03:00* Test Item Value Reference Range Interpretation Comments Iron Level (test code = 2498-4) 21 50-[address] [facility] HospitalTotal Iron Binding Sfbzumrv2284-52-11 14:03:00* Test Item Value Reference Range Interpretation Comments Total Iron Binding Capacity (test code = 2500-7) 407 261-[address] [facility] HospitalPercent Iron Tpgdcbnjwy8659-45-36 14:03:00* Test Item Value Reference Range Interpretation Comments Percent Iron Saturation (test code = 2502-3) 5 15-[address] [facility] HospitalTransferrin2019-05-15 14:03:00* Test Item Value Reference Range Interpretation Comments Transferrin (test code = 3034-6) 291 180-382 [facility]2019-05-15 14:03:00* Test Item Value Reference Range Interpretation Comments Iron Level (test code = 2498-4) 21 50-[address] [facility] HospitalTosp[facility] hospital Iron Binding Mlkdryzo7044-71-03 14:03:00* Test Item Value Reference Range Interpretation Comments Total Iron Binding Capacity (test code = 2500-7) 407 261-[address] [facility] HospitalPercent Iron Anaufjmdvb9577-42-34 14:03:00* Test Item Value Reference Range Interpretation Comments Percent Iron Saturation (test code = 2502-3) 5 15-[address] [facility] HospitalTransferrin2019-05-15 14:03:00* Test Item Value Reference Range Interpretation Comments Transferrin (test code = 3034-6) 291 180-382 [facility] HospitalMRI SPINE CERVICAL TU0198-85-93 10:47:00 [facility] [address] [address] Patient Name: RAFFI RIOS MR #: [id number] : [birth year] Age/Sex: 47/F Req #: [id number] Adm Physician: Ordered by: AUDI GIRALDO M.D. Report #: [id number] Location: [facility] Room/Bed: Procedure: 0131-0 001 MRI/MRI SPINE CERVICAL WO Exam Date: 08/20/18 Ex am Time: 0840 REPORT STATUS: Signed MRI of the cervical, thoracic and lumbar spine. History: Neck and low b ack pain, bladder incontinence Comparison studies: MRI of the thoracic spine , MRI of the lumbar spine report 10/01/2017 Technique: Cervical spi ne: Thoracic spine: Sagittal T1, T2, STIR, axial T1 and T2 Lumbar spine: Sag ittal T1, T2, STIR, axial T2 and spin density oblique Findings: Number of lumbar vertebral bodies:5. Alignment: Normal cervical lordosis. Normal thoracic kyphosis, anterolisthesis of L5 over S1. Normal remaining lumbar lord osis. Minimal lumbar levoscoliosis. Lower thoracic cord: Normal in signal and morphology. The tip of the conus is at T12-L1 . Soft tissues: No T2 hyperint ense inflammatory changes. Partially visualized 1.2 cm cyst at the left kidney upper pole, stable Paraspinal muscles: Well preserved. Vertebrae: Nor mal in height and signal intensity. No compression fractures, infection or fernando plasm. Degenerative changes: Cervical spine: At C4-C5, central disc osteophyte complex results in mild canal stenosis without significant foramina l narrowing, stable C5-C6, disc degeneration with loss of T2 signal. Central d isc osteophyte complex with mild impression on the thecal sac and without sign ificant foraminal narrowing, STIR C6-C7, small central disc osteophyte, with mild impression on the thecal sac without significant foraminal narrowing, st able Thoracic spine: At T4-T5, left central disc protrusion with patent c anal and foramina, stable. At T9-10 right central small disc protrusion inden ts the thecal sac without significant canal stenosis or foraminal narrowing, s table. At T10-11, right subarticular disc extrusion indents the thecal sac ca using mild stenosis, stable. Disc degeneration with loss of T2 signal fro m T1 through T12. Multiple small Schmorl nodes at the mid and lower thoracic s pine, stable. Lumbar spine: Disk spaces: Mild disc degeneration with loss of T2 signal and decreased anterior intervertebral space at L5-S1. The remain ing lumbar spine discs are normal in height and signal intensity. Disk herni ations: None Spinal canal: Patent Foramina: Mild left foraminal narrowing at L5-S1 secondary to grade 1 anterolisthesis and disc bulge. Mild facet hyper trophy at the lower lumbar spine. IMPRESSION: Cervical spine: 1. No change from previous examination. 2. Disc degeneration from C4 through C7 wit hout significant foraminal narrowing and mild canal stenosis at C5-6 and C6-7 . Thoracic spine: 1. No significant change from previous examination. 2. Left central disc protrusion at T4-T5 with patent canal and foramina, stab le. Right central small disc protrusion at T9-10 indents the thecal sac withou t significant canal stenosis or foraminal narrowing. Right subarticular disc e xtrusion indents the thecal sac causing mild right canal stenosis, stable. No spinal cord compression. 3. Stable degeneration with loss of T2 signal from T 1 through T12. Multiple small Schmorl nodes at the medial lower thoracic spine . 4. Grossly patent canal and foramina. Lumbar spine: 1. No change fro m previous examination. 2. Mild left foraminal narrowing at L5-S1 secondar y to mild grade 1 anterolisthesis and degenerative changes. The remaining james l and foramina are patent. 3. Moderate disc degeneration at L5-S1 withou t endplate changes. Signed by: DR Zeferino Beal M.D. on 08/20/2018 1 1:39 AM Dictated By: ZEFERINO ROCHE MD 113 Transcribed By: MERA on 08/20/18 1138 COPY TO: AUDI GIRALDO M.D. MRI SPINE LUMBAR [id number] 10:47:[address], [place], [place] [address] Patient Name: RAFFI RIOS MR #: [id number] : [birth year] Age/Sex: 47/F Req #: [id number] Adm Physician: Ordered by: AUDI GIRALDO M.D. Report #: [id number] Location: [facility] Room/Bed: Procedure: 0131-0 003 MRI/MRI SPINE LUMBAR WO Exam Date: 08/20/18 Exam Time: 0840 REPORT STATUS: Signed MRI of the cervical, thoracic and lumbar spine. History: Neck and low ridge k pain, bladder incontinence Comparison studies: MRI of the thoracic spine 09/26, MRI of the lumbar spine report 10/01/2017 Technique: Cervical spine : Thoracic spine: Sagittal T1, T2, STIR, axial T1 and T2 Lumbar spine: Sagit familia T1, T2, STIR, axial T2 and spin density oblique Findings: Number o f lumbar vertebral bodies:5. Alignment: Normal cervical lordosis. Normal th oracic kyphosis, anterolisthesis of L5 over S1. Normal remaining lumbar lordos is. Minimal lumbar levoscoliosis. Lower thoracic cord: Normal in signal and mo rphology. The tip of the conus is at T12-L1 . Soft tissues: No T2 hyperinten se inflammatory changes. Partially visualized 1.2 cm cyst at the left kidney u pper pole, stable Paraspinal muscles: Well preserved. Vertebrae: [place] l in height and signal intensity. No compression fractures, infection or neopl asm. Degenerative changes: Cervical spine: At C4-C5, central disc os teophyte complex results in mild canal stenosis without significant foraminal narrowing, stable C5-C6, disc degeneration with loss of T2 signal. Central dis c osteophyte complex with mild impression on the thecal sac and without signif icant foraminal narrowing, STIR C6-C7, small central disc osteophyte, with m ild impression on the thecal sac without significant foraminal narrowing, stab le Thoracic spine: At T4-T5, left central disc protrusion with patent can al and foramina, stable. At T9-10 right central small disc protrusion indents the thecal sac without significant canal stenosis or foraminal narrowing, sta ble. At T10-11, right subarticular disc extrusion indents the thecal sac caus ing mild stenosis, stable. Disc degeneration with loss of T2 signal from T1 through T12. Multiple small Schmorl nodes at the mid and lower thoracic spi ne, stable. Lumbar spine: Disk spaces: Mild disc degeneration with loss o f T2 signal and decreased anterior intervertebral space at L5-S1. The remainin g lumbar spine discs are normal in height and signal intensity. Disk herniat ions: None Spinal canal: Patent Foramina: Mild left foraminal narrowing at L 5-S1 secondary to grade 1 anterolisthesis and disc bulge. Mild facet hypertr ophy at the lower lumbar spine. IMPRESSION: Cervical spine: 1. No c hange from previous examination. 2. Disc degeneration from C4 through C7 witho ut significant foraminal narrowing and mild canal stenosis at C5-6 and C6-7. Thoracic spine: 1. No significant change from previous examination. 2. Left central disc protrusion at T4-T5 with patent canal and foramina, stable . Right central small disc protrusion at T9-10 indents the thecal sac without significant canal stenosis or foraminal narrowing. Right subarticular disc ext rusion indents the thecal sac causing mild right canal stenosis, stable. No sp inal cord compression. 3. Stable degeneration with loss of T2 signal from T1 through T12. Multiple small Schmorl nodes at the medial lower thoracic spine. 4. Grossly patent canal and foramina. Lumbar spine: 1. No change from previous examination. 2. Mild left foraminal narrowing at L5-S1 secondary to mild grade 1 anterolisthesis and degenerative changes. The remaining canal and foramina are patent. 3. Moderate disc degeneration at L5-S1 without endplate changes. Signed by: DR Zeferino Beal M.D. on 08/20/2018 11: 39 AM Dictated By: ZEFERINO ROCHE MD 38 Transcribed By: MERA on 08/20/181138 COPY TO: AUDI GIRALDO M.D. MRI SPINE THORACIC [id number] 10:47:00 [place] [address] Patient Name: RAFFI RIOS MR #: [id number] : [birth year] Age/Sex: 47/F Req #: [id number] Adm Physician: Ordered by: AUDI GIRALDO M.D. Report #: [id number] Location: [facility] Room/Bed: Procedure: 0131-0 002 MRI/MRI SPINE THORACIC WO Exam Date: 08/20/18 Ex am Time: 0840 REPORT STATUS: Signed MRI of the cervical, thoracic and lumbar spine. History: Neck and low b ack pain, bladder incontinence Comparison studies: MRI of the thoracic spine , MRI of the lumbar spine report 10/01/2017 Technique: Cervical spi ne: Thoracic spine: Sagittal T1, T2, STIR, axial T1 and T2 Lumbar spine: Sag ittal T1, T2, STIR, axial T2 and spin density oblique Findings: Number of lumbar vertebral bodies:5. Alignment: Normal cervical lordosis. Normal thoracic kyphosis, anterolisthesis of L5 over S1. Normal remaining lumbar lord osis. Minimal lumbar levoscoliosis. Lower thoracic cord: Normal in signal and morphology. The tip of the conus is at T12-L1 . Soft tissues: No T2 hyperint ense inflammatory changes. Partially visualized 1.2 cm cyst at the left kidney upper pole, stable Paraspinal muscles: Well preserved. Vertebrae: [place] in height and signal intensity. No compression fractures, infection or fernando plasm. Degenerative changes: Cervical spine: At C4-C5, central disc osteophyte complex results in mild canal stenosis without significant foramina l narrowing, stable C5-C6, disc degeneration with loss of T2 signal. Central d isc osteophyte complex with mild impression on the thecal sac and without sign ificant foraminal narrowing, STIR C6-C7, small central disc osteophyte, with mild impression on the thecal sac without significant foraminal narrowing, st able Thoracic spine: At T4-T5, left central disc protrusion with patent c anal and foramina, stable. At T9-10 right central small disc protrusion inden ts the thecal sac without significant canal stenosis or foraminal narrowing, s table. At T10-11, right subarticular disc extrusion indents the thecal sac ca using mild stenosis, stable. Disc degeneration with loss of T2 signal fro m T1 through T12. Multiple small Schmorl nodes at the mid and lower thoracic s pine, stable. Lumbar spine: Disk spaces: Mild disc degeneration with loss of T2 signal and decreased anterior intervertebral space at L5-S1. The remain ing lumbar spine discs are normal in height and signal intensity. Disk herni ations: None Spinal canal: Patent Foramina: Mild left foraminal narrowing at L5-S1 secondary to grade 1 anterolisthesis and disc bulge. Mild facet hyper trophy at the lower lumbar spine. IMPRESSION: Cervical spine: 1. No change from previous examination. 2. Disc degeneration from C4 through C7 wit hout significant foraminal narrowing and mild canal stenosis at C5-6 and C6-7 . Thoracic spine: 1. No significant change from previous examination. 2. Left central disc protrusion at T4-T5 with patent canal and foramina, stab le. Right central small disc protrusion at T9-10 indents the thecal sac withou t significant canal stenosis or foraminal narrowing. Right subarticular disc e xtrusion indents the thecal sac causing mild right canal stenosis, stable. No spinal cord compression. 3. Stable degeneration with loss of T2 signal from T 1 through T12. Multiple small Schmorl nodes at the medial lower thoracic spine . 4. Grossly patent canal and foramina. Lumbar spine: 1. No change fro m previous examination. 2. Mild left foraminal narrowing at L5-S1 secondar y to mild grade 1 anterolisthesis and degenerative changes. The remaining james l and foramina are patent. 3. Moderate disc degeneration at L5-S1 withou t endplate changes. Signed by: DR Zeferino Beal M.D. on 08/20/2018 1 1:39 AM Dictated By: ZEFERINO ROCHE MD 113 Transcribed By: MERA on 08/20/18 113 COPY TO: AUDI GIRALDO M.D. Sodium [id number] 20:26:00* Test Item Value Reference Range Interpretation Comments Sodium Level (test code = 2951-2) 139 136-145 [facility] Ejiry2899-06-70 20:26:00* Test Item Value Reference Range Interpretation Comments Potassium Level (test code = 2823-3) 3.9 3.5-5.1 [facility] HospitalChloride [id number] 20:26:00* Test Item Value Reference Range Interpretation Comments Chloride Level (test code = 2075-0) 101 98-107 [facility] HospitalCarbon Dioxide [id number] 20:26:00* Test Item Value Reference Range Interpretation Comments Carbon Dioxide Level (test code = 2028-9) 29 22-29 [facility] HospitalAnion [id number] 20:26:00* Test Item Value Reference Range Interpretation Comments Anion Gap (test code = 24612-7) 12.9 8-16 [facility] HospitalBlood Urea [id number] 20:26:00* Test Item Value Reference Range Interpretation Comments Blood Urea Nitrogen (test code = 3094-0) 16 7-26 [facility] HospitalCreatinine2019-01-16 20:26:00* Test Item Value Reference Range Interpretation Comments Creatinine (test code = 2160-0) 0.79 0.57-1.11 [facility] HospitalBUN/Creatinine Omkrh9981-32-64 20:26:00* Test Item Value Reference Range Interpretation Comments BUN/Creatinine Ratio (test code = 3097-3) 20 6-25 [facility] HospitalEstimat Glomerular Filtration Rate 2018-08-05 20:26:00* Test Item Value Reference Range Interpretation Comments Estimat Glomerular Filtration Rate (test code = 269858309) > 60 >60 Ranges were taken from the National Kidney Disease Education Program and the [facility] literature.Reference ranges:60 or greater: Cwggzg04-55 ( for 3 consecutive months): Chronic kidney disease 15 or less: Kidney failureSt. Joseph Health College Station HospitalGlucose Vsoft1731-23-31 20:26:00* Test Item Value Reference Range Interpretation Comments Glucose Level (test code = TWP7339) 80 74-118 [facility] HospitalCalcium Mqzdy5648-13-14 20:26:00* Test Item Value Reference Range Interpretation Comments Calcium Level (test code = 11471-4) 8.7 8.4-10.2 [facility] HospitalTotal Vlbxhktuf3728-79-42 20:26:00* Test Item Value Reference Range Interpretation Comments Total Bilirubin (test code = 1975-2) 0.2 0.2-1.2 [facility] HospitalAspartate Amino Transf (AST/SGOT) 2018-08-05 20:26:00* Test Item Value Reference Range Interpretation Comments Aspartate Amino Transf (AST/SGOT) (test code = Aspartate Amino Transf (AST/SGOT)) 14 5-34 [facility] HospitalAlanine Aminotransferase (ALT/SGPT) 2018-08-05 20:26:00* Test Item Value Reference Range Interpretation Comments Alanine Aminotransferase (ALT/SGPT) (test code = 1742-6) 17 0-55 [facility] HospitalTotal Nkkxkll1114-56-17 20:26:00* Test Item Value Reference Range Interpretation Comments Total Protein (test code = 2885-2) 6.8 6.5-8.1 [facility] HospitalAlbumin2019-01-16 20:26:00* Test Item Value Reference Range Interpretation Comments Albumin (test code = 1751-7) 3.6 3.5-5.0 [facility] HospitalGlobulin2019-01-16 20:26:00* Test Item Value Reference Range Interpretation Comments Globulin (test code = 56881-9) 3.2 2.3-3.5 [facility] HospitalAlbumin/Globulin Bjbrb5506-39-20 20:26:00 * Test Item Value Reference Range Interpretation Comments Albumin/Globulin Ratio (test code = 1759-0) 1.1 0.8-2.0 [facility] HospitalAlkaline Ovaafrkbzhw7012-35-72 20:26:00* Test Item Value Reference Range Interpretation Comments Alkaline Phosphatase (test code = 6768-6) 61 40-150 [facility] Mpldv2006-96-37 20:26:00* Test Item Value Reference Range Interpretation Comments Sodium Level (test code = 2951-2) 139 136-145 [facility] HospitalPotassium Phwxw5502-37-70 20:26:00* Test Item Value Reference Range Interpretation Comments Potassium Level (test code = 2823-3) 3.9 3.5-5.1 [facility] HospitalChloride Xarpm1668-43-03 20:26:00* Test Item Value Reference Range Interpretation Comments Chloride Level (test code = 2075-0) 101 98-107 [facility] HospitalCarbon Dioxide Vvlvd0885-75-59 20:26:00* Test Item Value Reference Range Interpretation Comments Carbon Dioxide Level (test code = 2028-9) 29 22-29 [facility] HospitalAnion Bhi1783-61-90 20:26:00* Test Item Value Reference Range Interpretation Comments Anion Gap (test code = 36811-1) 12.9 8-16 [facility] HospitalBlood Urea Usgkvrgd9295-44-33 20:26:00* Test Item Value Reference Range Interpretation Comments Blood Urea Nitrogen (test code = 3094-0) 16 7-26 [facility] HospitalCreatinine2019-01-16 20:26:00* Test Item Value Reference Range Interpretation Comments Creatinine (test code = 2160-0) 0.79 0.57-1.11 [facility] HospitalBUN/Creatinine Pfsvv1801-77-70 20:26:00* Test Item Value Reference Range Interpretation Comments BUN/Creatinine Ratio (test code = 3097-3) 20 6-25 [facility] HospitalEstimat Glomerular Filtration Rate 2018-08-05 20:26:00* Test Item Value Reference Range Interpretation Comments Estimat Glomerular Filtration Rate (test code = 043743683) > 60 >60 Ranges were taken from the National Kidney Disease Education Program and the [facility] literature.Reference ranges:60 or greater: Pcxbin98-77 ( for 3 consecutive months): Chronic kidney disease 15 or less: Kidney failureSt. Joseph Health College [facility] HospitalGlucose Kvraf8686-26-87 20:26:00* Test Item Value Reference Range Interpretation Comments Glucose Level (test code = PWC5902) 80 74-118 [facility] HospitalCalcium Izfzo9616-64-45 20:26:00* Test Item Value Reference Range Interpretation Comments Calcium Level (test code = 29289-8) 8.7 8.4-10.2 [facility] HospitalTotal Ihtskfztz2217-44-55 20:26:00* Test Item Value Reference Range Interpretation Comments Total Bilirubin (test code = 1975-2) 0.2 0.2-1.2 [facility] HospitalAspartate Amino Transf (AST/SGOT) 2018-08-05 20:26:00* Test Item Value Reference Range Interpretation Comments Aspartate Amino Transf (AST/SGOT) (test code = Aspartate Amino Transf (AST/SGOT)) 14 5-34 [facility] HospitalAlanine Aminotransferase (ALT/SGPT) 2018-08-05 20:26:00* Test Item Value Reference Range Interpretation Comments Alanine Aminotransferase (ALT/SGPT) (test code = 1742-6) 17 0-55 [facility] HospitalTotal Gzejabi9401-11-88 20:26:00* Test Item Value Reference Range Interpretation Comments Total Protein (test code = 2885-2) 6.8 6.5-8.1 [facility] HospitalAlbumin2019-01-16 20:26:00* Test Item Value Reference Range Interpretation Comments Albumin (test code = 1751-7) 3.6 3.5-5.0 [facility] HospitalGlobulin2019-01-16 20:26:00* Test Item Value Reference Range Interpretation Comments Globulin (test code = 74937-2) 3.2 2.3-3.5 [facility] HospitalAlbumin/Globulin Saumo6700-25-31 20:26:00 * Test Item Value Reference Range Interpretation Comments Albumin/Globulin Ratio (test code = 1759-0) 1.1 0.8-2.0 [facility] HospitalAlkaline Xicodbnmyvm9933-25-83 20:26:00* Test Item Value Reference Range Interpretation Comments Alkaline Phosphatase (test code = 6768-6) 61 40-150 [facility] HospitalUrine [id number] 20:21:00* Test Item Value Reference Range Interpretation Comments Urine WBC (test code = 5821-4) NONE 0-5 [facility] HospitalUrine HPY4932-22-12 20:21:00* Test Item Value Reference Range Interpretation Comments Urine RBC (test code = 58307-9) NONE 0-5 [facility] HospitalUrine Jnasfrdq5481-24-41 20:21:00* Test Item Value Reference Range Interpretation Comments Urine Bacteria (test code = 71811-3) MODERATE NONE H [facility] HospitalUrine Epithelial Ehmzu9604-65-38 20:21:00 * Test Item Value Reference Range Interpretation Comments Urine Epithelial Cells (test code = 91918-7) NONE NONE [facility] HospitalUrine Amorphous Cgztvjcp9341-83-39 20:21:00* Test Item Value Reference Range Interpretation Comments Urine Amorphous Sediment (test code = 8246-1) MODERATE FEW H [facility] HospitalUrine Mxsmn2751-92-50 20:21:00* Test Item Value Reference Range Interpretation Comments Urine Mucus (test code = 8247-9) MODERATE RARE H [facility] HospitalUrine VLF8196-00-42 20:21:00* Test Item Value Reference Range Interpretation Comments Urine WBC (test code = 5821-4) NONE 0-5 [facility] HospitalU[facility] JAA3284-77-28 20:21:00* Test Item Value Reference Range Interpretation Comments Urine RBC (test code = 53010-3) NONE 0-5 [facility] Jkhopfdi4069-95-20 20:21:00* Test Item Value Reference Range Interpretation Comments Urine Bacteria (test code = 99462-4) MODERATE NONE H [facility] Epithelial Xbynd2031-40-11 20:21:00 * Test Item Value Reference Range Interpretation Comments Urine Epithelial Cells (test code = 98740-3) NONE NONE [facility] Amorphous Sfoalils0922-71-28 20:21:00* Test Item Value Reference Range Interpretation Comments Urine Amorphous Sediment (test code = 8246-1) MODERATE FEW H [facility] Sghul1528-93-47 20:21:00* Test Item Value Reference Range Interpretation Comments Urine Mucus (test code = 8247-9) MODERATE RARE H [facility] YWO9060-75-08 20:21:00* Test Item Value Reference Range Interpretation Comments Urine WBC (test code = 5821-4) NONE 0-5 [facility] TOH9548-45-29 20:21:00* Test Item Value Reference Range Interpretation Comments Urine RBC (test code = 92094-7) NONE 0-5 [facility] Xvxqasng9299-24-96 20:21:00* Test Item Value Reference Range Interpretation Comments Urine Bacteria (test code = 96188-9) MODERATE NONE H [facility] Epithelial Dpvwi2860-70-68 20:21:00 * Test Item Value Reference Range Interpretation Comments Urine Epithelial Cells (test code = 55743-8) NONE NONE [facility] Amorphous Cgckdomt3683-07-03 20:21:00* Test Item Value Reference Range Interpretation Comments Urine Amorphous Sediment (test code = 8246-1) MODERATE FEW H [facility] Wrfvy3129-77-39 20:21:00* Test Item Value Reference Range Interpretation Comments Urine Mucus (test code = 8247-9) MODERATE RARE H [facility] Vkywr2310-95-49 20:12:00* Test Item Value Reference Range Interpretation Comments Urine Color (test code = 5778-6) YELLOW YELLOW [facility] Qqybmhe7357-23-83 20:12:00* Test Item Value Reference Range Interpretation Comments Urine Clarity (test code = 53682-1) CLEAR CLEAR [facility] HospitalU[facility] Specific Ixyljxx5204-18-61 20:12:00 * Test Item Value Reference Range Interpretation Comments Urine Specific [place] (test code = 5811-5) 1.015 1.010-1.[address] [facility] HospitalU[facility] [id number] 20:12:00* Test Item Value Reference Range Interpretation Comments Urine pH (test code = 62380-9) 7 5-7 [facility] Leukocyte Izlcjwiw0861-97-54 20:12:00* Test Item Value Reference Range Interpretation Comments Urine Leukocyte Esterase (test code = 5799-2) NEGATIVE NEGATIVE [facility] Fmmmirz0654-86-25 20:12:00* Test Item Value Reference Range Interpretation Comments Urine Nitrite (test code = 27817-5) NEGATIVE NEGATIVE [facility] Dsvthmz0852-71-07 20:12:00* Test Item Value Reference Range Interpretation Comments Urine Protein (test code = 5804-0) NEGATIVE NEGATIVE [facility] Glucose (UA)2018-08-05 20:12:00* Test Item Value Reference Range Interpretation Comments Urine Glucose (UA) (test code = 2349-9) NEGATIVE NEGATIVE [facility] Qbpuqri0053-30-07 20:12:00* Test Item Value Reference Range Interpretation Comments Urine Ketones (test code = 76978-7) NEGATIVE NEGATIVE [facility] Gdrvtpexjsza8471-46-30 20:12:00* Test Item Value Reference Range Interpretation Comments Urine Urobilinogen (test code = 85791-8) 0.2 0.2-1 [facility] Rsmfyjoki9300-47-91 20:12:00* Test Item Value Reference Range Interpretation Comments Urine Bilirubin (test code = 1978-6) NEGATIVE NEGATIVE [facility] Miigg8139-99-85 20:12:00* Test Item Value Reference Range Interpretation Comments Urine Blood (test code = 42989-6) NEGATIVE NEGATIVE [facility] Vajn7543-12-77 20:12:00* Test Item Value Reference Range Interpretation Comments Urine Test (test code = 2106-3) NEGATIVE NEGATIVE [facility] Bctfj8514-76-53 20:12:00* Test Item Value Reference Range Interpretation Comments Urine Color (test code = 5778-6) YELLOW YELLOW [facility] Hvvgfxi2789-37-06 20:12:00* Test Item Value Reference Range Interpretation Comments Urine Clarity (test code = 12833-3) CLEAR CLEAR [facility] Specific Yqtmfgb0742-58-50 20:12:00 * Test Item Value Reference Range Interpretation Comments Urine Specific [place] (test code = 5811-5) 1.015 1.010-1.[address] [facility] [facility] [id number] 20:12:00* Test Item Value Reference Range Interpretation Comments Urine pH (test code = 95017-6) 7 5-7 [facility] Leukocyte Rwlvmsmk7726-08-39 20:12:00* Test Item Value Reference Range Interpretation Comments Urine Leukocyte Esterase (test code = 5799-2) NEGATIVE NEGATIVE [facility] Lofwsgr8921-16-62 20:12:00* Test Item Value Reference Range Interpretation Comments Urine Nitrite (test code = 95059-0) NEGATIVE NEGATIVE [facility] Ycclwak3063-40-91 20:12:00* Test Item Value Reference Range Interpretation Comments Urine Protein (test code = 5804-0) NEGATIVE NEGATIVE [facility] Glucose (UA)2018-08-05 20:12:00* Test Item Value Reference Range Interpretation Comments Urine Glucose (UA) (test code = 2349-9) NEGATIVE NEGATIVE [facility] Eiivxqk0198-41-05 20:12:00* Test Item Value Reference Range Interpretation Comments Urine Ketones (test code = 65691-3) NEGATIVE NEGATIVE [facility] Efmqvfvvhnnp4752-56-32 20:12:00* Test Item Value Reference Range Interpretation Comments Urine Urobilinogen (test code = 27529-7) 0.2 0.2-1 [facility] Kyqtnaqgn3262-39-35 20:12:00* Test Item Value Reference Range Interpretation Comments Urine Bilirubin (test code = 1978-6) NEGATIVE NEGATIVE [facility] Smipm9466-32-35 20:12:00* Test Item Value Reference Range Interpretation Comments Urine Blood (test code = 06440-0) NEGATIVE NEGATIVE [facility] Etml3988-75-11 20:12:00* Test Item Value Reference Range Interpretation Comments Urine Test (test code = 2106-3) NEGATIVE NEGATIVE [facility] Dxxjg1102-04-13 20:12:00* Test Item Value Reference Range Interpretation Comments Urine Color (test code = 5778-6) YELLOW YELLOW [facility] Ljfzhnu4604-94-11 20:12:00* Test Item Value Reference Range Interpretation Comments Urine Clarity (test code = 67979-1) CLEAR CLEAR [facility] Specific Cncrzkz7360-16-95 20:12:00 * Test Item Value Reference Range Interpretation Comments Urine Specific [place] (test code = 5811-5) 1.015 1.010-1.[address] [facility] [id number] 20:12:00* Test Item Value Reference Range Interpretation Comments Urine pH (test code = 59489-1) 7 5-7 [facility] Leukocyte Nelbxkwj1076-30-72 20:12:00* Test Item Value Reference Range Interpretation Comments Urine Leukocyte Esterase (test code = 5799-2) NEGATIVE NEGATIVE [facility] Eubtmgd6070-09-24 20:12:00* Test Item Value Reference Range Interpretation Comments Urine Nitrite (test code = 42415-6) NEGATIVE NEGATIVE [facility] Vdercsl9895-85-79 20:12:00* Test Item Value Reference Range Interpretation Comments Urine Protein (test code = 5804-0) NEGATIVE NEGATIVE [facility] Glucose (UA)2018-08-05 20:12:00* Test Item Value Reference Range Interpretation Comments Urine Glucose (UA) (test code = 2349-9) NEGATIVE NEGATIVE [facility] Jzgkyqh1504-95-52 20:12:00* Test Item Value Reference Range Interpretation Comments Urine Ketones (test code = 99153-8) NEGATIVE NEGATIVE [facility] Cqgjgpiqbrwe7993-82-63 20:12:00* Test Item Value Reference Range Interpretation Comments Urine Urobilinogen (test code = 17948-0) 0.2 0.2-1 [facility] Tfqmqmajd7047-07-86 20:12:00* Test Item Value Reference Range Interpretation Comments Urine Bilirubin (test code = 1978-6) NEGATIVE NEGATIVE [facility] Fzoey6419-55-14 20:12:00* Test Item Value Reference Range Interpretation Comments Urine Blood (test code = 45789-8) NEGATIVE NEGATIVE [facility] Pvak5486-74-79 20:12:00* Test Item Value Reference Range Interpretation Comments Urine Test (test code = 2106-3) NEGATIVE NEGATIVE [facility] HospitalWhite Blood Xvwri9750-85-16 20:06:00* Test Item Value Reference Range Interpretation Comments White Blood Count (test code = 6690-2) 8.57 4.8-10.8 [facility] HospitalRed Blood Lmnma7866-34-91 20:06:00* Test Item Value Reference Range Interpretation Comments Red Blood Count (test code = 789-8) 4.31 3.6-5.1 [facility] HospitalHemoglobin2019-01-16 20:06:00* Test Item Value Reference Range Interpretation Comments Hemoglobin (test code = 26683-5) 12.2 12.0-16.0 [facility] HospitalHematocrit2019-01-16 20:06:00* Test Item Value Reference Range Interpretation Comments Hematocrit (test code = 4544-3) 39.1 34.2-44.1 [facility] HospitalMean Corpuscular Pkgvcw6224-30-34 20:06:00* Test Item Value Reference Range Interpretation Comments Mean Corpuscular Volume (test code = 787-2) 90.7 81-99 [facility] HospitalMean Corpuscular Zcllvouhsg0258-62-12 20:06:00* Test Item Value Reference Range Interpretation Comments Mean Corpuscular Hemoglobin (test code = 785-6) 28.3 28-32 [facility] HospitalMean Corpuscular Hemoglobin Concent 2018-08-05 20:06:00* Test Item Value Reference Range Interpretation Comments Mean Corpuscular Hemoglobin Concent (test code = 786-4) 31.2 31-35 [facility] HospitalRed Cell Distribution Xfnao0241-37-96 20:06:00* Test Item Value Reference Range Interpretation Comments Red Cell Distribution Width (test code = 82288-9) 14.6 11.7 -14.[address] [facility] HospitalPlatelet Ftvrk6050-95-83 20:06:00* Test Item Value Reference Range Interpretation Comments Platelet Count (test code = 777-3) 356 140-360 [facility] HospitalNeutrophils (%) (Auto)2018-08-05 20:06:00 * Test Item Value Reference Range Interpretation Comments Neutrophils (%) (Auto) (test code = 35969-0) 55.1 38.7-80.0 [facility] HospitalLymphocytes (%) (Auto)2018-08-05 20:06:00 * Test Item Value Reference Range Interpretation Comments Lymphocytes (%) (Auto) (test code = 736-9) 36.1 18.0-39.1 [facility] HospitalMonocytes (%) (Auto)2018-08-05 20:06:00* Test Item Value Reference Range Interpretation Comments Monocytes (%) (Auto) (test code = 5905-5) 5.8 4.4-11.3 [facility] HospitalEosinophils (%) (Auto)2018-08-05 20:06:00 * Test Item Value Reference Range Interpretation Comments Eosinophils (%) (Auto) (test code = 713-8) 1.8 0.0-6.0 [facility] HospitalBasophils (%) (Auto)2018-08-05 20:06:00* Test Item Value Reference Range Interpretation Comments Basophils (%) (Auto) (test code = 706-2) 0.4 0.0-1.0 [facility] HospitalIM GRANULOCYTES %2018-08-05 20:06:00* Test Item Value Reference Range Interpretation Comments IM GRANULOCYTES % (test code = IM GRANULOCYTES %) 0.8 0.0- 1.0 [facility] HospitalNeutrophils # (Auto)2018-08-05 20:06:00* Test Item Value Reference Range Interpretation Comments Neutrophils # (Auto) (test code = 751-8) 4.7 2.1-6.9 [facility] HospitalLymphocytes # (Auto)2018-08-05 20:06:00* Test Item Value Reference Range Interpretation Comments Lymphocytes # (Auto) (test code = 57031-3) 3.1 1.0-3.2 [facility] HospitalMonocytes # (Auto)2018-08-05 20:06:00* Test Item Value Reference Range Interpretation Comments Monocytes # (Auto) (test code = 742-7) 0.5 0.2-0.8 [facility] HospitalEosinophils # (Auto)2018-08-05 20:06:00* Test Item Value Reference Range Interpretation Comments Eosinophils # (Auto) (test code = 711-2) 0.2 0.0-0.4 [facility] HospitalBasophils # (Auto)2018-08-05 20:06:00* Test Item Value Reference Range Interpretation Comments Basophils # (Auto) (test code = 704-7) 0.0 0.0-0.1 [facility] HospitalAbsolute Immature Granulocyte (auto 2018-08-05 20:06:00* Test Item Value Reference Range Interpretation Comments Absolute Immature Granulocyte (auto (nimo t code = Absolute Immature Granulocyte (auto) 0.07 0-0.1 [facility] HospitalWhite Blood Mybfs4077-48-92 20:06:00* Test Item Value Reference Range Interpretation Comments White Blood Count (test code = 6690-2) 8.57 4.8-10.8 [facility] HospitalRed Blood Qsrqq6585-61-81 20:06:00* Test Item Value Reference Range Interpretation Comments Red Blood Count (test code = 789-8) 4.31 3.6-5.1 [facility] HospitalHemoglobin2019-01-16 20:06:00* Test Item Value Reference Range Interpretation Comments Hemoglobin (test code = 46294-4) 12.2 12.0-16.0 [facility] HospitalHematocrit2019-01-16 20:06:00* Test Item Value Reference Range Interpretation Comments Hematocrit (test code = 4544-3) 39.1 34.2-44.1 [facility] HospitalMean Corpuscular Faozat5155-08-67 20:06:00* Test Item Value Reference Range Interpretation Comments Mean Corpuscular Volume (test code = 787-2) 90.7 81-99 [facility] HospitalMean Corpuscular Vncsvurran0797-28-73 20:06:00* Test Item Value Reference Range Interpretation Comments Mean Corpuscular Hemoglobin (test code = 785-6) 28.3 28-32 [facility] HospitalMean Corpuscular Hemoglobin Concent 2018-08-05 20:06:00* Test Item Value Reference Range Interpretation Comments Mean Corpuscular Hemoglobin Concent (test code = 786-4) 31.2 31-35 [facility] HospitalRed Cell Distribution Pdpqh6383-85-03 20:06:00* Test Item Value Reference Range Interpretation Comments Red Cell Distribution Width (test code = 08023-6) 14.6 11.7 -14.[address] [facility] HospitalPlatelet Qknzj4036-97-42 20:06:00* Test Item Value Reference Range Interpretation Comments Platelet Count (test code = 777-3) 356 140-360 [facility] HospitalNeutrophils (%) (Auto)2018-08-05 20:06:00 * Test Item Value Reference Range Interpretation Comments Neutrophils (%) (Auto) (test code = 51485-4) 55.1 38.7-80.0 [facility] HospitalLymphocytes (%) (Auto)2018-08-05 20:06:00 * Test Item Value Reference Range Interpretation Comments Lymphocytes (%) (Auto) (test code = 736-9) 36.1 18.0-39.1 [facility] HospitalMonocytes (%) (Auto)2018-08-05 20:06:00* Test Item Value Reference Range Interpretation Comments Monocytes (%) (Auto) (test code = 5905-5) 5.8 4.4-11.3 [facility] HospitalEosinophils (%) (Auto)2018-08-05 20:06:00 * Test Item Value Reference Range Interpretation Comments Eosinophils (%) (Auto) (test code = 713-8) 1.8 0.0-6.0 [facility] HospitalBasophils (%) (Auto)2018-08-05 20:06:00* Test Item Value Reference Range Interpretation Comments Basophils (%) (Auto) (test code = 706-2) 0.4 0.0-1.0 [facility] HospitalIM GRANULOCYTES %2018-08-05 20:06:00* Test Item Value Reference Range Interpretation Comments IM GRANULOCYTES % (test code = IM GRANULOCYTES %) 0.8 0.0- 1.0 [facility] HospitalNeutrophils # (Auto)2018-08-05 20:06:00* Test Item Value Reference Range Interpretation Comments Neutrophils # (Auto) (test code = 751-8) 4.7 2.1-6.9 [facility] HospitalLymphocytes # (Auto)2018-08-05 20:06:00* Test Item Value Reference Range Interpretation Comments Lymphocytes # (Auto) (test code = 65533-3) 3.1 1.0-3.2 [facility] HospitalMonocytes # (Auto)2018-08-05 20:06:00* Test Item Value Reference Range Interpretation Comments Monocytes # (Auto) (test code = 742-7) 0.5 0.2-0.8 [facility] HospitalEosinophils # (Auto)2018-08-05 20:06:00* Test Item Value Reference Range Interpretation Comments Eosinophils # (Auto) (test code = 711-2) 0.2 0.0-0.4 [facility] HospitalBasophils # (Auto)2018-08-05 20:06:00* Test Item Value Reference Range Interpretation Comments Basophils # (Auto) (test code = 704-7) 0.0 0.0-0.1 [facility] HospitalAbsolute Immature Granulocyte (auto 2018-08-05 20:06:00* Test Item Value Reference Range Interpretation Comments Absolute Immature Granulocyte (auto (nimo t code = Absolute Immature Granulocyte (auto) 0.07 0-0.1 [facility] HospitalUrine YNO6440-35-57 06:43:00* Test Item Value Reference Range Interpretation Comments Urine WBC (test code = 5821-4) 21-50 0-[address] [facility] HospitalUrine GZX8144-41-04 06:43:00* Test Item Value Reference Range Interpretation Comments Urine RBC (test code = 90184-6) 6-10 0-[address] [facility] HospitalUrine Lbbdfdtt6937-83-85 06:43:00* Test Item Value Reference Range Interpretation Comments Urine Bacteria (test code = 61079-2) FEW NONE [facility] HospitalUrine Epithelial Dxvbf5286-68-18 06:43:00 * Test Item Value Reference Range Interpretation Comments Urine Epithelial Cells (test code = 23934-1) MODERATE NONE [facility] HospitalU[facility] Fvftr9219-98-63 06:43:00* Test Item Value Reference Range Interpretation Comments Urine Mucus (test code = 8247-9) MODERATE RARE H [facility] HospitalU[facility] QRH7086-66-78 06:43:00* Test Item Value Reference Range Interpretation Comments Urine WBC (test code = 5821-4) 21-50 0-[address] [facility] HospitalU[facility] PCQ3823-12-36 06:43:00* Test Item Value Reference Range Interpretation Comments Urine RBC (test code = 14800-5) 6-10 0-[address] [facility] HospitalU[facility] Nzcgrfpc3355-75-22 06:43:00* Test Item Value Reference Range Interpretation Comments Urine Bacteria (test code = 43847-5) FEW NONE [facility] HospitalU[facility] Epithelial Aygbk7058-59-79 06:43:00 * Test Item Value Reference Range Interpretation Comments Urine Epithelial Cells (test code = 61661-7) MODERATE NONE [facility] HospitalUrine Oarlm9625-62-66 06:43:00* Test Item Value Reference Range Interpretation Comments Urine Mucus (test code = 8247-9) MODERATE RARE H [facility] HospitalCHEST 2 GUQCY6864-65-62 06:35:00 [facility] [address] [address] Patient Name: RAFFI RIOS MR #: [id number] : 1970 Age/Sex: 47/F Req #: [id number] Adm Physician: Ordered by: ELKIN LLOYD MD Report #: [id number] Location: ER Room/Bed: Procedure: [id number] DX/CH EST 2 VIEWS Exam Date: 07/29/18 Exam Time: 0610 REPORT STATUS: Signed CHEST 2 VIEWS, Technique: CHEST 2 VIEWS Comparison: None Clinical history: Cough , congestion DISCUSSION: Calcified right lung granuloma. Otherwise unrem arkable appearance of the heart, mediastinum, lungs and pleural spaces. Clips overlie the left upper quadrant. IMPRESSION: No acute abnormality Si gned by: Dr Rachel Trevizo MD on 07/29/2018 6:35 AM Dictated By: RACHEL JAMA MD 4 Transcr ibed By: MERA on 07/29/18634 COPY TO: ELKIN LLOYD MD Urine Koxwi4270-61-53 06:31:00* Test Item Value Reference Range Interpretation Comments Urine Color (test code = 5778-6) YELLOW YELLOW [facility] HospitalU[facility] Huvvjqr7650-73-72 06:31:00* Test Item Value Reference Range Interpretation Comments Urine Clarity (test code = 25242-9) SL CLOUDY CLEAR [facility] HospitalU[facility] Specific Ksrctsc0779-02-50 06:31:00 * Test Item Value Reference Range Interpretation Comments Urine Specific [place] (test code = 5811-5) 1.030 1.010-1.[address] [facility] HospitalU[facility] [id number] 06:31:00* Test Item Value Reference Range Interpretation Comments Urine pH (test code = 59926-0) 6 5-7 [facility] Leukocyte Aysrjrrj3868-87-33 06:31:00* Test Item Value Reference Range Interpretation Comments Urine Leukocyte Esterase (test code = 5799-2) TRACE NEGATIVE H [facility] Zhshaqj8952-37-47 06:31:00* Test Item Value Reference Range Interpretation Comments Urine Nitrite (test code = 53321-7) NEGATIVE NEGATIVE [facility] Jvectji9703-17-66 06:31:00* Test Item Value Reference Range Interpretation Comments Urine Protein (test code = 5804-0) NEGATIVE NEGATIVE [facility] HospitalU[facility] Glucose (UA)2018-07-29 06:31:00* Test Item Value Reference Range Interpretation Comments Urine Glucose (UA) (test code = 2349-9) NEGATIVE NEGATIVE [facility] HospitalU[facility] Fmdmpww4168-53-96 06:31:00* Test Item Value Reference Range Interpretation Comments Urine Ketones (test code = 78040-9) TRACE NEGATIVE H [facility] HospitalU[facility] Eqcutoelymit3006-94-11 06:31:00* Test Item Value Reference Range Interpretation Comments Urine Urobilinogen (test code = 90279-6) 0.2 0.2-1 [facility] Eofwvmukk0485-95-00 06:31:00* Test Item Value Reference Range Interpretation Comments Urine Bilirubin (test code = 1978-6) NEGATIVE NEGATIVE [facility] Rkhds3490-41-00 06:31:00* Test Item Value Reference Range Interpretation Comments Urine Blood (test code = 86013-6) [facility] Gettz4925-12-96 06:31:00* Test Item Value Reference Range Interpretation Comments Urine Color (test code = 5778-6) YELLOW YELLOW [facility] Zsoxoyn0137-10-85 06:31:00* Test Item Value Reference Range Interpretation Comments Urine Clarity (test code = 23075-1) SL CLOUDY CLEAR [facility] HospitalU[facility] Specific Jyvgthu5642-85-57 06:31:00 * Test Item Value Reference Range Interpretation Comments Urine Specific [place] (test code = 5811-5) 1.030 1.010-1.[address] [facility] qJ2608-93-43 06:31:00* Test Item Value Reference Range Interpretation Comments Urine pH (test code = 09251-6) 6 5-7 [facility] Leukocyte Cdlidcdu1991-43-66 06:31:00* Test Item Value Reference Range Interpretation Comments Urine Leukocyte Esterase (test code = 5799-2) TRACE NEGATIVE [facility] Gbimojx2686-94-75 06:31:00* Test Item Value Reference Range Interpretation Comments Urine Nitrite (test code = 87844-4) NEGATIVE NEGATIVE [facility] Thkvlvx4788-97-68 06:31:00* Test Item Value Reference Range Interpretation Comments Urine Protein (test code = 5804-0) NEGATIVE NEGATIVE [facility] Glucose (UA)2018-07-29 06:31:00* Test Item Value Reference Range Interpretation Comments Urine Glucose (UA) (test code = 2349-9) NEGATIVE NEGATIVE [facility] Kpfhlqp4353-46-31 06:31:00* Test Item Value Reference Range Interpretation Comments Urine Ketones (test code = 02135-9) [facility]GATIVE [facility] Pyeruxkoxqrz1573-17-77 06:31:00* Test Item Value Reference Range Interpretation Comments Urine Urobilinogen (test code = 43558-2) 0.2 0.2-1 [facility] Brflqdpfm0680-49-88 06:31:00* Test Item Value Reference Range Interpretation Comments Urine Bilirubin (test code = 1978-6) NEGATIVE NEGATIVE [facility] Erwoq7041-18-49 06:31:00* Test Item Value Reference Range Interpretation Comments Urine Blood (test code = 74264-8) TRACE NEGATIVE H [facility] HospitalGroup A Streptococcus Wosdqn2620-88-27 06:23:00* Test Item Value Reference Range Interpretation Comments Group A Streptococcus Screen (test code = 98764-7) NEGATIVE NEG ATIVE [facility]Group [facility] Streptococcus Imphsh5878-68-40 06:23:00* Test Item Value Reference Range Interpretation Comments Group A Streptococcus Screen (test code = 42146-0) [facility]IVE [facility]Group [facility] Streptococcus Wwqfih0754-77-36 06:23:00* Test Item Value Reference Range Interpretation Comments Group A Streptococcus Screen (test code = 51404-1) NEGATIVE [facility]G [facility]Group [facility] Streptococcus Phtffa5416-73-78 06:23:00* Test Item Value Reference Range Interpretation Comments Group A Streptococcus Screen (test code = 63070-5) NEGATIVE [facility]G [facility]Group [facility] Streptococcus Exuizg7262-30-38 06:23:00* Test Item Value Reference Range Interpretation Comments Group A Streptococcus Screen (test code = 92123-9) NEGATIVE NEG [facility]25-Hydroxy Vitamin D Rcahz5855-94-71 05:17:00* Test Item Value Reference Range Interpretation Comments 25-Hydroxy Vitamin D Total (test code = 70125-8) 57 . Reference Range:All Ages: Target levels 30 - 100[facility]25-Hydroxy Vitamin O34082-50-25 05:17:00* Test Item Value Reference Range Interpretation Comments 25-Hydroxy Vitamin D3 (test code = 38566-1) 57 . Performed at: [employer] [place] [id number] Director: Dong Posada MD, Phone: [phone]. [facility]25-Hydroxy Vitamin P13709-36-70 05:17:00* Test Item Value Reference Range Interpretation Comments 25-Hydroxy Vitamin D2 (test code = 1988-3) <1.[address] [facility]25-Hydroxy Vitamin D Akifn0235-85-57 05:17:00* Test Item Value Reference Range Interpretation Comments 25-Hydroxy Vitamin D Total (test code = 75154-7) 57 . Reference Range:All Ages: Target levels 30 - 100[facility] Vitamin I64126-66-23 05:17:00* Test Item Value Reference Range Interpretation Comments 25-Hydroxy Vitamin D3 (test code = 27706-2) 57 . Performed at: [address] [place] [address] Director: Dong Posada MD, Phone: [phone]. [facility]25-Hydroxy Vitamin P98394-18-66 05:17:00* Test Item Value Reference Range Interpretation Comments 25-Hydroxy Vitamin D2 (test code = 1988-) <1.[address] [facility]25-Hydroxy Vitamin D Oknxk6786-41-34 05:17:00* Test Item Value Reference Range Interpretation Comments 25-Hydroxy Vitamin D Total (test code = 76432-0) 57 . Reference Range:All Ages: Target levels 30 - 100[facility]25-Hydroxy Vitamin C09511-86-90 05:17:00* Test Item Value Reference Range Interpretation Comments 25-Hydroxy Vitamin D3 (test code = 78488-5) 57 . Performed at: [address] [place] [address]Lab Director: Dong Posada MD, Phone: [phone]. [facility]25-Hydroxy Vitamin L36202-89-72 05:17:00* Test Item Value Reference Range Interpretation Comments 25-Hydroxy Vitamin D2 (test code = 1988-3) <1.[address] [facility]25-Hydroxy Vitamin D Yegkl1635-67-62 05:17:00* Test Item Value Reference Range Interpretation Comments 25-Hydroxy Vitamin D Total (test code = 50725-9) 57 . Reference Range:All Ages: Target levels 30 - 100[facility]25-Hydroxy Vitamin T28805-37-28 05:17:00* Test Item Value Reference Range Interpretation Comments 25-Hydroxy Vitamin D3 (test code = 93441-4) 57 . Performed at: [employer] ([employer]) [address] [address] Director: Dong Posada MD, Phone: [phone]. [facility]25-Hydroxy Vitamin K00313-47-23 05:17:00* Test Item Value Reference Range Interpretation Comments 25-Hydroxy Vitamin D2 (test code = 1989-3) <1.[address] [facility] HospitalVitamin B12 Hsmzn5757-97-84 07:50:00* Test Item Value Reference Range Interpretation Comments Vitamin B12 Level (test code = 31696-0) > 1999 213-[address] [facility] HospitalVitamin B12 Yntzp0637-77-99 07:50:00* Test Item Value Reference Range Interpretation Comments Vitamin B12 Level (test code = 76905-2) > 1999 213-[address] [facility] [facility] HospitalVitamin B12 Koiuy5662-89-27 07:50:00* Test Item Value Reference Range Interpretation Comments Vitamin B12 Level (test code = 45091-3) > 1999 213-[address] [facility] HospitalVitamin B12 Grlel5700-29-32 07:50:00* Test Item Value Reference Range Interpretation Comments Vitamin B12 Level (test code = 20846-2) > 1999 213-[address] [facility] HospitalThyroid Stimulating Hormone (TSH) 2018-02-25 07:30:00* Test Item Value Reference Range Interpretation Comments Thyroid Stimulating Hormone (TSH) (test code = 00483-7) 1.693 0.350-4.940 [facility] HospitalThyroid Stimulating Hormone (TSH) 2018-02-25 07:30:00* Test Item Value Reference Range Interpretation Comments Thyroid Stimulating Hormone (TSH) (test code = 40640-4) 1.693 0.350-4.940 [facility] HospitalThyroid Stimulating Hormone (TSH) 2018-02-25 07:30:00* Test Item Value Reference Range Interpretation Comments Thyroid Stimulating Hormone (TSH) (test code = 48724-2) 1.693 0.350-4.940 [facility] HospitalThyroid Stimulating Hormone (TSH) 2018-02-25 07:30:00* Test Item Value Reference Range Interpretation Comments Thyroid Stimulating Hormone (TSH) (test code = 83914-0) 1.693 0.350-4.940 [facility] Yqgyh1549-18-85 07:10:00* Test Item Value Reference Range Interpretation Comments Sodium Level (test code = 2951-2) 144 136-145 [facility] HospitalPotassium Ubxie8627-73-03 07:10:00* Test Item Value Reference Range Interpretation Comments Potassium Level (test code = 2823-3) 4.2 3.5-5.1 [facility] HospitalChloride Ftcru4746-90-21 07:10:00* Test Item Value Reference Range Interpretation Comments Chloride Level (test code = 2075-0) 107 98-107 [facility] HospitalCarbon Dioxide Yktju7713-24-07 07:10:00* Test Item Value Reference Range Interpretation Comments Carbon Dioxide Level (test code = 2028-9) 29 22-29 [facility] HospitalAnion Soq8517-83-23 07:10:00* Test Item Value Reference Range Interpretation Comments Anion Gap (test code = 92480-5) 12.2 8-16 [facility] HospitalBlood Urea Sqvuayon8893-59-38 07:10:00* Test Item Value Reference Range Interpretation Comments Blood Urea Nitrogen (test code = 3094-0) 19 7-26 [facility] HospitalCreatinine2018-08-08 07:10:00* Test Item Value Reference Range Interpretation Comments Creatinine (test code = 2160-0) 0.76 0.57-1.11 [facility] HospitalBUN/Creatinine Vnlmg9991-70-68 07:10:00* Test Item Value Reference Range Interpretation Comments BUN/Creatinine Ratio (test code = 3097-3) 25 6-25 [facility] HospitalEstimat Glomerular Filtration Rate 2018-02-25 07:10:00* Test Item Value Reference Range Interpretation Comments Estimat Glomerular Filtration Rate (test code = 836929614) > 60 >60 Ranges were taken from the National Kidney Disease Education Program and the [facility] literature.Reference ranges:60 or greater: Csgpkv77-54 ( for 3 consecutive months): Chronic kidney disease 15 or less: Kidney failureSt. [facility] HospitalGlucose Afzty6822-29-99 07:10:00* Test Item Value Reference Range Interpretation Comments Glucose Level (test code = XKZ0064) 87 74-118 [facility] HospitalCalcium Wylph4099-30-33 07:10:00* Test Item Value Reference Range Interpretation Comments Calcium Level (test code = 98993-3) 9.2 8.4-10.2 [facility] HospitalTotal Zeuwmctom5259-24-51 07:10:00* Test Item Value Reference Range Interpretation Comments Total Bilirubin (test code = 1975-2) 0.2 0.2-1.2 [facility] HospitalAspartate Amino Transf (AST/SGOT) 2018-02-25 07:10:00* Test Item Value Reference Range Interpretation Comments Aspartate Amino Transf (AST/SGOT) (test code = Aspartate Amino Transf (AST/SGOT)) 18 5-34 [facility] HospitalAlanine Aminotransferase (ALT/SGPT) 2018-02-25 07:10:00* Test Item Value Reference Range Interpretation Comments Alanine Aminotransferase (ALT/SGPT) (test code = 1742-6) 13 0-55 [facility] Ycmzpbf4274-81-76 07:10:00* Test Item Value Reference Range Interpretation Comments Total Protein (test code = 2885-2) 7.2 6.5-8.1 [facility] HospitalAlbumin2018-08-08 07:10:00* Test Item Value Reference Range Interpretation Comments Albumin (test code = 1751-7) 3.6 3.5-5.0 [facility] HospitalGlobulin2018-08-08 07:10:00* Test Item Value Reference Range Interpretation Comments Globulin (test code = 93509-4) 3.6 2.3-3.[address] [facility] HospitalAlbumin/Globulin Mdqgy7845-85-88 07:10:00 * Test Item Value Reference Range Interpretation Comments Albumin/Globulin Ratio (test code = 1759-0) 1.0 0.8-2.0 [facility] HospitalAlkaline Jasltpqtxhy5377-86-21 07:10:00* Test Item Value Reference Range Interpretation Comments Alkaline Phosphatase (test code = 6768-6) 51 40-150 [facility] HospitalTriglycerides Icecx0637-62-06 07:10:00* Test Item Value Reference Range Interpretation Comments Triglycerides Level (test code = 2571-8) 142 0-149 [facility] HospitalCholesterol Ddxjr0347-58-21 07:10:00* Test Item Value Reference Range Interpretation Comments Cholesterol Level (test code = 2093-3) 239 0-199 H Less than 200 mg/dL Low Lisi436 - 239 mg/dL Borderline Hwzu563 m g/dl and greater High [facility] HospitalLDL Hovnxxdfwrz8460-28-46 07:10:00* Test Item Value Reference Range Interpretation Comments LDL Cholesterol (test code = 2089-1) 139 60-[address] [facility] HospitalHDL Fllxkkicrzx6998-12-61 07:10:00* Test Item Value Reference Range Interpretation Comments HDL Cholesterol (test code = 2085-9) 72 40-[address] [facility] HospitalCholesterol/HDL Ppbre4621-92-72 07:10:00 * Test Item Value Reference Range Interpretation Comments Cholesterol/HDL Ratio (test code = 9830-1) 3.3 3.0-3.6 [facility]odium Uzwjc8146-38-60 07:10:00* Test Item Value Reference Range Interpretation Comments Sodium Level (test code = 2951-2) 144 136-145 [facility] HospitalPotassium Odmcw4300-42-90 07:10:00* Test Item Value Reference Range Interpretation Comments Potassium Level (test code = 2823-3) 4.2 3.5-5.1 [facility] HospitalChloride Kukfg0970-67-23 07:10:00* Test Item Value Reference Range Interpretation Comments Chloride Level (test code = 2075-0) 107 98-107 [facility] HospitalCarbon Dioxide Yzbst4770-01-87 07:10:00* Test Item Value Reference Range Interpretation Comments Carbon Dioxide Level (test code = 2028-9) 29 22-29 [facility] HospitalAnion Klj2206-78-35 07:10:00* Test Item Value Reference Range Interpretation Comments Anion Gap (test code = 27768-3) 12.2 8-16 [facility] HospitalBlood Urea Ienbyscn6569-11-71 07:10:00* Test Item Value Reference Range Interpretation Comments Blood Urea Nitrogen (test code = 3094-0) 19 7-26 [facility] HospitalCreatinine2018-08-08 07:10:00* Test Item Value Reference Range Interpretation Comments Creatinine (test code = 2160-0) 0.76 0.57-1.11 [facility] HospitalBUN/Creatinine Mppgw8765-30-29 07:10:00* Test Item Value Reference Range Interpretation Comments BUN/Creatinine Ratio (test code = 3097-3) 25 6-25 [facility] HospitalEstimat Glomerular Filtration Rate 2018-02-25 07:10:00* Test Item Value Reference Range Interpretation Comments Estimat Glomerular Filtration Rate (test code = 487362140) > 60 >60 Ranges were taken from the National Kidney Disease Education Program and the [facility] Kid[facility] Foundation literature.Reference ranges:60 or greater: Xoqdyj23-94 ( for 3 consecutive months): Chronic kidney disease 15 or less: Kidney failureSt. [facility] HospitalGlucose Tbngk9483-60-71 07:10:00* Test Item Value Reference Range Interpretation Comments Glucose Level (test code = AEU4206) 87 74-118 [facility] HospitalCalcium Hzyrm5123-44-29 07:10:00* Test Item Value Reference Range Interpretation Comments Calcium Level (test code = 67087-2) 9.2 8.4-10.2 [facility] HospitalTotal Firyocxjz3909-70-78 07:10:00* Test Item Value Reference Range Interpretation Comments Total Bilirubin (test code = 1975-2) 0.2 0.2-1.2 [facility] HospitalAspartate Amino Transf (AST/SGOT) 2018-02-25 07:10:00* Test Item Value Reference Range Interpretation Comments Aspartate Amino Transf (AST/SGOT) (test code = Aspartate Amino Transf (AST/SGOT)) 18 5-34 [facility] HospitalAlanine Aminotransferase (ALT/SGPT) 2018-02-25 07:10:00* Test Item Value Reference Range Interpretation Comments Alanine Aminotransferase (ALT/SGPT) (test code = 1742-6) 13 0-55 [facility] HospitalTotal Avjtjnc7377-49-03 07:10:00* Test Item Value Reference Range Interpretation Comments Total Protein (test code = 2885-2) 7.2 6.5-8.1 [facility] HospitalAlbumin2018-08-08 07:10:00* Test Item Value Reference Range Interpretation Comments Albumin (test code = 1751-7) 3.6 3.5-5.0 [facility] HospitalGlobulin2018-08-08 07:10:00* Test Item Value Reference Range Interpretation Comments Globulin (test code = 23685-3) 3.6 2.3-3.[address] [facility] HospitalAlbumin/Globulin Svfca4817-70-73 07:10:00 * Test Item Value Reference Range Interpretation Comments Albumin/Globulin Ratio (test code = 1759-0) 1.0 0.8-2.0 [facility] HospitalAlkaline Obgawcyknyf7405-37-81 07:10:00* Test Item Value Reference Range Interpretation Comments Alkaline Phosphatase (test code = 6768-6) 51 40-150 [facility] HospitalTriglycerides Qowdm1214-00-70 07:10:00* Test Item Value Reference Range Interpretation Comments Triglycerides Level (test code = 2571-8) 142 0-149 [facility] HospitalCholesterol Vpkcp7596-43-94 07:10:00* Test Item Value Reference Range Interpretation Comments Cholesterol Level (test code = 2093-3) 239 0-199 H Less than 200 mg/dL Low Uyue504 - 239 mg/dL Borderline Zanm422 m g/dl and greater High [facility] HospitalLDL Vefcwssahfl4577-07-23 07:10:00* Test Item Value Reference Range Interpretation Comments LDL Cholesterol (test code = 2089-1) 139 60-130 H [facility] Jlfgczqetgb2520-65-86 07:10:00* Test Item Value Reference Range Interpretation Comments HDL Cholesterol (test code = 2085-9) 72 40-[address] [facility] HospitalCholesterol/HDL Rpzik9747-30-38 07:10:00 * Test Item Value Reference Range Interpretation Comments Cholesterol/HDL Ratio (test code = 9830-1) 3.3 3.0-3.6 [facility] HospitalTriglycerides Qpfux6522-63-47 07:10:00* Test Item Value Reference Range Interpretation Comments Triglycerides Level (test code = 2571-8) 142 0-149 [facility] HospitalCholesterol Vdjhv2854-99-69 07:10:00* Test Item Value Reference Range Interpretation Comments Cholesterol Level (test code = 2093-3) 239 0-199 H Less than 200 mg/dL Low Ezvf063 - 239 mg/dL Borderline Tocy318 m g/dl and greater High Risk [facility] Amifvrdrpin8943-12-42 07:10:00* Test Item Value Reference Range Interpretation Comments LDL Cholesterol (test code = 2089-1) 139 60-130 H [facility] Hqwopewlpgf6617-38-55 07:10:00* Test Item Value Reference Range Interpretation Comments HDL Cholesterol (test code = 2085-9) 72 40-[address] [facility] HospitalCholesterol/HDL Jxabj9025-51-40 07:10:00 * Test Item Value Reference Range Interpretation Comments Cholesterol/HDL Ratio (test code = 9830-1) 3.3 3.0-3.6 [facility] HospitalTriglycerides Jkecu4592-40-39 07:10:00* Test Item Value Reference Range Interpretation Comments Triglycerides Level (test code = 2571-8) 142 0-149 [facility] HospitalCholesterol Xifuc0660-33-72 07:10:00* Test Item Value Reference Range Interpretation Comments Cholesterol Level (test code = 2093-3) 239 0-199 H Less than 200 mg/dL Low Enhs986 - 239 mg/dL Borderline Nisv040 m g/dl and greater High [facility] HospitalLDL Oqmuvuegghv0763-66-98 07:10:00* Test Item Value Reference Range Interpretation Comments LDL Cholesterol (test code = 2089-1) 139 60-[address] [facility] HospitalHDL Kahendeylzj2597-01-32 07:10:00* Test Item Value Reference Range Interpretation Comments HDL Cholesterol (test code = 2085-9) 72 40-[address] [facility] HospitalCholesterol/HDL Hrian9961-65-78 07:10:00 * Test Item Value Reference Range Interpretation Comments Cholesterol/HDL Ratio (test code = 9830-1) 3.3 3.0-3.6 [facility] HospitalWhite Blood Ntpob2088-38-99 06:46:00* Test Item Value Reference Range Interpretation Comments White Blood Count (test code = 6690-2) 6.22 4.8-10.8 [facility] HospitalRed Blood Popbd5964-67-26 06:46:00* Test Item Value Reference Range Interpretation Comments Red Blood Count (test code = 789-8) 4.14 3.6-5.1 [facility] HospitalHemoglobin2018-08-08 06:46:00* Test Item Value Reference Range Interpretation Comments Hemoglobin (test code = 53276-7) 11.8 12.0-16.[address] [facility] HospitalHematocrit2018-08-08 06:46:00* Test Item Value Reference Range Interpretation Comments Hematocrit (test code = 4544-3) 37.2 34.2-44.1 [facility] HospitalMean Corpuscular Uvtame8450-12-11 06:46:00* Test Item Value Reference Range Interpretation Comments Mean Corpuscular Volume (test code = 787-2) 89.9 81-99 [facility] HospitalMean Corpuscular Cawnhygqgp6916-86-34 06:46:00* Test Item Value Reference Range Interpretation Comments Mean Corpuscular Hemoglobin (test code = 785-6) 28.5 28-32 [facility] HospitalMean Corpuscular Hemoglobin Concent 2018-02-25 06:46:00* Test Item Value Reference Range Interpretation Comments Mean Corpuscular Hemoglobin Concent (test code = 786-4) 31.7 31-35 [facility] HospitalRed Cell Distribution Ajtmu7106-46-81 06:46:00* Test Item Value Reference Range Interpretation Comments Red Cell Distribution Width (test code = 24965-4) 14.0 11.7 -14.4 [facility] HospitalPlatelet Gmpui9174-32-65 06:46:00* Test Item Value Reference Range Interpretation Comments Platelet Count (test code = 777-3) 364 140-[address] [facility] HospitalNeutrophils (%) (Auto)2018-02-25 06:46:00 * Test Item Value Reference Range Interpretation Comments Neutrophils (%) (Auto) (test code = 42144-1) 56.2 38.7-80.0 [facility] HospitalLymphocytes (%) (Auto)2018-02-25 06:46:00 * Test Item Value Reference Range Interpretation Comments Lymphocytes (%) (Auto) (test code = 736-9) 31.2 18.0-39.1 [facility] HospitalMonocytes (%) (Auto)2018-02-25 06:46:00* Test Item Value Reference Range Interpretation Comments Monocytes (%) (Auto) (test code = 5905-5) 8.8 4.4-11.3 [facility] HospitalEosinophils (%) (Auto)2018-02-25 06:46:00 * Test Item Value Reference Range Interpretation Comments Eosinophils (%) (Auto) (test code = 713-8) 3.1 0.0-6.0 [facility] HospitalBasophils (%) (Auto)2018-02-25 06:46:00* Test Item Value Reference Range Interpretation Comments Basophils (%) (Auto) (test code = 706-2) 0.5 0.0-1.0 [facility] HospitalIM GRANULOCYTES %2018-02-25 06:46:00* Test Item Value Reference Range Interpretation Comments IM GRANULOCYTES % (test code = IM GRANULOCYTES %) 0.2 0.0- 1.0 [facility] HospitalNeutrophils # (Auto)2018-02-25 06:46:00* Test Item Value Reference Range Interpretation Comments Neutrophils # (Auto) (test code = 751-8) 3.5 2.1-6.9 [facility] HospitalLymphocytes # (Auto)2018-02-25 06:46:00* Test Item Value Reference Range Interpretation Comments Lymphocytes # (Auto) (test code = 73114-4) 1.9 1.0-3.2 [facility] HospitalMonocytes # (Auto)2018-02-25 06:46:00* Test Item Value Reference Range Interpretation Comments Monocytes # (Auto) (test code = 742-7) 0.6 0.2-0.8 [facility] HospitalEosinophils # (Auto)2018-02-25 06:46:00* Test Item Value Reference Range Interpretation Comments Eosinophils # (Auto) (test code = 711-2) 0.2 0.0-0.4 [facility] HospitalBasophils # (Auto)2018-02-25 06:46:00* Test Item Value Reference Range Interpretation Comments Basophils # (Auto) (test code = 704-7) 0.0 0.0-0.1 [facility] HospitalAbsolute Immature Granulocyte (auto 2018-02-25 06:46:00* Test Item Value Reference Range Interpretation Comments Absolute Immature Granulocyte (auto (nimo t code = Absolute Immature Granulocyte (auto) 0.01 0-0.1 [facility] HospitalWhite Blood Ghgsg4653-27-51 06:46:00* Test Item Value Reference Range Interpretation Comments White Blood Count (test code = 6690-2) 6.22 4.8-10.8 [facility] HospitalRed Blood Ebhyn6797-51-69 06:46:00* Test Item Value Reference Range Interpretation Comments Red Blood Count (test code = 789-8) 4.14 3.6-5.1 [facility] HospitalHemoglobin2018-08-08 06:46:00* Test Item Value Reference Range Interpretation Comments Hemoglobin (test code = 32263-0) 11.8 12.0-16.[address] [facility] HospitalHematocrit2018-08-08 06:46:00* Test Item Value Reference Range Interpretation Comments Hematocrit (test code = 4544-3) 37.2 34.2-44.1 [facility] HospitalMean Corpuscular Rcqrce6586-34-36 06:46:00* Test Item Value Reference Range Interpretation Comments Mean Corpuscular Volume (test code = 787-2) 89.9 81-99 [facility] HospitalMean Corpuscular Aympfjwewm4788-15-13 06:46:00* Test Item Value Reference Range Interpretation Comments Mean Corpuscular Hemoglobin (test code = 785-6) 28.5 28-32 [facility] HospitalMean Corpuscular Hemoglobin Concent 2018-02-25 06:46:00* Test Item Value Reference Range Interpretation Comments Mean Corpuscular Hemoglobin Concent (test code = 786-4) 31.7 31-35 [facility] HospitalRed Cell Distribution Kczlu4297-53-65 06:46:00* Test Item Value Reference Range Interpretation Comments Red Cell Distribution Width (test code = 77310-5) 14.0 11.7 -14.4 [facility] HospitalPlatelet Mbyax8031-94-04 06:46:00* Test Item Value Reference Range Interpretation Comments Platelet Count (test code = 777-3) 364 140-[address] [facility] HospitalNeutrophils (%) (Auto)2018-02-25 06:46:00 * Test Item Value Reference Range Interpretation Comments Neutrophils (%) (Auto) (test code = 59089-1) 56.2 38.7-80.0 [facility] HospitalLymphocytes (%) (Auto)2018-02-25 06:46:00 * Test Item Value Reference Range Interpretation Comments Lymphocytes (%) (Auto) (test code = 736-9) 31.2 18.0-39.1 [facility] HospitalMonocytes (%) (Auto)2018-02-25 06:46:00* Test Item Value Reference Range Interpretation Comments Monocytes (%) (Auto) (test code = 5905-5) 8.8 4.4-11.3 [facility] HospitalEosinophils (%) (Auto)2018-02-25 06:46:00 * Test Item Value Reference Range Interpretation Comments Eosinophils (%) (Auto) (test code = 713-8) 3.1 0.0-6.0 [facility] HospitalBasophils (%) (Auto)2018-02-25 06:46:00* Test Item Value Reference Range Interpretation Comments Basophils (%) (Auto) (test code = 706-2) 0.5 0.0-1.0 [facility] HospitalIM GRANULOCYTES %2018-02-25 06:46:00* Test Item Value Reference Range Interpretation Comments IM GRANULOCYTES % (test code = IM GRANULOCYTES %) 0.2 0.0- 1.0 [facility] HospitalNeutrophils # (Auto)2018-02-25 06:46:00* Test Item Value Reference Range Interpretation Comments Neutrophils # (Auto) (test code = 751-8) 3.5 2.1-6.9 [facility] HospitalLymphocytes # (Auto)2018-02-25 06:46:00* Test Item Value Reference Range Interpretation Comments Lymphocytes # (Auto) (test code = 28948-4) 1.9 1.0-3.2 [facility] HospitalMonocytes # (Auto)2018-02-25 06:46:00* Test Item Value Reference Range Interpretation Comments Monocytes # (Auto) (test code = 742-7) 0.6 0.2-0.8 [facility] HospitalEosinophils # (Auto)2018-02-25 06:46:00* Test Item Value Reference Range Interpretation Comments Eosinophils # (Auto) (test code = 711-2) 0.2 0.0-0.4 [facility] HospitalBasophils # (Auto)2018-02-25 06:46:00* Test Item Value Reference Range Interpretation Comments Basophils # (Auto) (test code = 704-7) 0.0 0.0-0.1 [facility] HospitalAbsolute Immature Granulocyte (auto 2018-02-25 06:46:00* Test Item Value Reference Range Interpretation Comments Absolute Immature Granulocyte (auto (nimo t code = Absolute Immature Granulocyte (auto) 0.01 0-0.1 [facility] HospitalPhosphorus Plwth1146-42-06 15:22:00* Test Item Value Reference Range Interpretation Comments Phosphorus Level (test code = ZOH3516) 3.5 2.3-4.7 [facility]icsgn[facility] Akjzl0193-17-69 15:22:00* Test Item Value Reference Range Interpretation Comments Magnesium Level (test code = 28407-2) 1.8 1.3-2.1 [facility] Edyja4620-46-88 15:22:00* Test Item Value Reference Range Interpretation Comments Phosphorus Level (test code = SMW2591) 3.5 2.3-4.7 [facility]icsgnesium Rytzb9816-74-32 15:22:00* Test Item Value Reference Range Interpretation Comments Magnesium Level (test code = 65251-2) 1.8 1.3-2.1 [facility] HospitalUrine Ryxsuhu1868-37-42 10:37:00* Test Item Value Reference Range Interpretation Comments Urine Culture (test code = 630-4) Organism: ESCHERICHIA COLI [facility] HospitalUrine Dlidbfu2087-46-20 10:37:00* Test Item Value Reference Range Interpretation Comments Urine Culture (test code = 630-4) Organism: ESCHERICHIA COLI [facility]odium Mvfnd8690-97-50 12:34:00* Test Item Value Reference Range Interpretation Comments Sodium Level (test code = 2951-2) 136 136-145 [facility] HospitalPotassium Mkojt4792-14-76 12:34:00* Test Item Value Reference Range Interpretation Comments Potassium Level (test code = 2823-3) 3.6 3.5-5.1 [facility] HospitalChloride Lganq3575-18-80 12:34:00* Test Item Value Reference Range Interpretation Comments Chloride Level (test code = 2075-0) 99 98-107 [facility] HospitalCarbon Dioxide Tcdmj4566-99-81 12:34:00* Test Item Value Reference Range Interpretation Comments Carbon Dioxide Level (test code = 2028-9) 31 22-[address] [facility] HospitalAnion Yfu0081-02-59 12:34:00* Test Item Value Reference Range Interpretation Comments Anion Gap (test code = 79807-3) 9.6 8-16 [facility] HospitalBlood Urea Ozhfgdnd1807-31-99 12:34:00* Test Item Value Reference Range Interpretation Comments Blood Urea Nitrogen (test code = 3094-0) 20 7-26 [facility] HospitalCreatinine2017-12-10 12:34:00* Test Item Value Reference Range Interpretation Comments Creatinine (test code = 2160-0) 0.72 0.57-1.11 [facility] HospitalBUN/Creatinine Ksxxl3584-37-51 12:34:00* Test Item Value Reference Range Interpretation Comments BUN/Creatinine Ratio (test code = 3097-3) 28 6-[address] [facility] HospitalEstimat Glomerular Filtration Rate 2017-06-29 12:34:00* Test Item Value Reference Range Interpretation Comments Estimat Glomerular Filtration Rate (test code = 69628-8) 60- >60 Ranges were taken from the National Kidney Disease Education Program and the [facility] literature.Reference ranges:60 or greater: Ryexpo00-30 ( for 3 consecutive months): Chronic kidney disease 15 or less: Kidney failureSt. [facility] HospitalGlucose Xpdsd9790-47-86 12:34:00* Test Item Value Reference Range Interpretation Comments Glucose Level (test code = SOJ2367) 89 74-118 [facility] HospitalCalcium Dvczx7969-57-70 12:34:00* Test Item Value Reference Range Interpretation Comments Calcium Level (test code = 76248-6) 8.9 8.4-10.2 [facility] HospitalTotal Njixcmebg0435-63-41 12:34:00* Test Item Value Reference Range Interpretation Comments Total Bilirubin (test code = 1975-2) 0.3 0.2-1.2 [facility] HospitalAspartate Amino Transf (AST/SGOT) 2017-06-29 12:34:00* Test Item Value Reference Range Interpretation Comments Aspartate Amino Transf (AST/SGOT) (test code = Aspartate Amino Transf (AST/SGOT)) 16 5-34 [facility] HospitalAlanine Aminotransferase (ALT/SGPT) 2017-06-29 12:34:00* Test Item Value Reference Range Interpretation Comments Alanine Aminotransferase (ALT/SGPT) (test code = 1742-6) 13 0-55 [facility] HospitalTotal Chybvok6629-81-16 12:34:00* Test Item Value Reference Range Interpretation Comments Total Protein (test code = 2885-2) 7.2 6.5-8.1 [facility] HospitalAlbumin2017-12-10 12:34:00* Test Item Value Reference Range Interpretation Comments Albumin (test code = 1751-7) 3.8 3.5-5.0 [facility] HospitalGlobulin2017-12-10 12:34:00* Test Item Value Reference Range Interpretation Comments Globulin (test code = 59572-6) 3.4 2.3-3.5 [facility] HospitalAlbumin/Globulin Gajkl9077-97-26 12:34:00 * Test Item Value Reference Range Interpretation Comments Albumin/Globulin Ratio (test code = 1759-0) 1.1 0.8-2.0 [facility] HospitalAlkaline Omkcfhzvjte9953-93-79 12:34:00* Test Item Value Reference Range Interpretation Comments Alkaline Phosphatase (test code = 6768-6) 54 40-150 [facility] HospitalAmylase Qhimx1300-10-64 12:34:00* Test Item Value Reference Range Interpretation Comments Amylase Level (test code = 1798-8) 63 25-125 [facility] HospitalLipase2017-12-10 12:34:00* Test Item Value Reference Range Interpretation Comments Lipase (test code = 3040-3) 23 8-78 [facility] Kimtj5191-36-07 12:34:00* Test Item Value Reference Range Interpretation Comments Sodium Level (test code = 2951-2) 136 136-145 [facility] HospitalPotassium Mbhni1287-01-37 12:34:00* Test Item Value Reference Range Interpretation Comments Potassium Level (test code = 2823-3) 3.6 3.5-5.1 [facility] HospitalChloride Vqxbp8579-99-93 12:34:00* Test Item Value Reference Range Interpretation Comments Chloride Level (test code = 2075-0) 99 98-107 [facility] HospitalCarbon Dioxide Yabhz2505-44-51 12:34:00* Test Item Value Reference Range Interpretation Comments Carbon Dioxide Level (test code = 2028-9) 31 22-[address] [facility] HospitalAnion Req5806-33-89 12:34:00* Test Item Value Reference Range Interpretation Comments Anion Gap (test code = 69918-4) 9.6 8-16 [facility] HospitalBlood Urea Dwbjjqdp1035-79-87 12:34:00* Test Item Value Reference Range Interpretation Comments Blood Urea Nitrogen (test code = 3094-0) 20 7-26 [facility] HospitalCreatinine2017-12-10 12:34:00* Test Item Value Reference Range Interpretation Comments Creatinine (test code = 2160-0) 0.72 0.57-1.11 [facility] HospitalBUN/Creatinine Zduyq1451-29-89 12:34:00* Test Item Value Reference Range Interpretation Comments BUN/Creatinine Ratio (test code = 3097-3) 28 6-[address] [facility] HospitalEstimat Glomerular Filtration Rate 2017-06-29 12:34:00* Test Item Value Reference Range Interpretation Comments Estimat Glomerular Filtration Rate (test code = 20999-3) 60- >60 Ranges were taken from the National Kidney Disease Education Program and the [facility] literature.Reference ranges:60 or greater: Zaoszb36-88 ( for 3 consecutive months): Chronic kidney disease 15 or less: Kidney failureSt. [facility] HospitalGlucose Pfqpn0782-45-05 12:34:00* Test Item Value Reference Range Interpretation Comments Glucose Level (test code = ZFA1052) 89 74-118 [facility] HospitalCalcium Spswu1440-11-45 12:34:00* Test Item Value Reference Range Interpretation Comments Calcium Level (test code = 21134-9) 8.9 8.4-10.2 [facility] HospitalTotal Vrhhienbu6202-89-15 12:34:00* Test Item Value Reference Range Interpretation Comments Total Bilirubin (test code = 1975-2) 0.3 0.2-1.2 [facility] HospitalAspartate Amino Transf (AST/SGOT) 2017-06-29 12:34:00* Test Item Value Reference Range Interpretation Comments Aspartate Amino Transf (AST/SGOT) (test code = Aspartate Amino Transf (AST/SGOT)) 16 5-34 [facility] HospitalAlanine Aminotransferase (ALT/SGPT) 2017-06-29 12:34:00* Test Item Value Reference Range Interpretation Comments Alanine Aminotransferase (ALT/SGPT) (test code = 1742-6) 13 0-55 [facility] HospitalTotal Pveynkm4405-33-65 12:34:00* Test Item Value Reference Range Interpretation Comments Total Protein (test code = 2885-2) 7.2 6.5-8.1 [facility] HospitalAlbumin2017-12-10 12:34:00* Test Item Value Reference Range Interpretation Comments Albumin (test code = 1751-7) 3.8 3.5-5.0 [facility] HospitalGlobulin2017-12-10 12:34:00* Test Item Value Reference Range Interpretation Comments Globulin (test code = 70719-8) 3.4 2.3-3.5 [facility] HospitalAlbumin/Globulin Evteg0081-74-00 12:34:00 * Test Item Value Reference Range Interpretation Comments Albumin/Globulin Ratio (test code = 1759-0) 1.1 0.8-2.0 [facility] HospitalAlkaline Ewvvimrlmfu5573-14-53 12:34:00* Test Item Value Reference Range Interpretation Comments Alkaline Phosphatase (test code = 6768-6) 54 40-150 [facility] HospitalAmylase Wsfxf3364-85-72 12:34:00* Test Item Value Reference Range Interpretation Comments Amylase Level (test code = 1798-8) 63 25-125 [facility] HospitalLipase2017-12-10 12:34:00* Test Item Value Reference Range Interpretation Comments Lipase (test code = 3040-3) 23 8-78 [facility] HospitalUrine Oczu3273-08-21 12:28:00* Test Item Value Reference Range Interpretation Comments Urine Test (test code = 2106-3) NEGATIVE NEGATIVE [facility] HospitalUrine Dkoe9423-01-79 12:28:00* Test Item Value Reference Range Interpretation Comments Urine Test (test code = 2106-3) NEGATIVE NEGATIVE [facility] HospitalUrine QOZ9318-06-99 12:23:00* Test Item Value Reference Range Interpretation Comments Urine WBC (test code = 5821-4) 6-10 0-[address] [facility] HospitalUrine RSI4399-99-28 12:23:00* Test Item Value Reference Range Interpretation Comments Urine RBC (test code = 85357-3) 6-10 0-[address] [facility] HospitalUrine Vnihsrqk5972-64-46 12:23:00* Test Item Value Reference Range Interpretation Comments Urine Bacteria (test code = 85495-0) MODERATE NONE H [facility] HospitalUrine Epithelial Alivz6839-68-02 12:23:00 * Test Item Value Reference Range Interpretation Comments Urine Epithelial Cells (test code = 20549-1) FEW NONE [facility] HospitalUrine WHB8826-47-88 12:23:00* Test Item Value Reference Range Interpretation Comments Urine WBC (test code = 5821-4) 6-10 0-[address] [facility] HospitalUrine IMJ7742-32-00 12:23:00* Test Item Value Reference Range Interpretation Comments Urine RBC (test code = 03488-4) 6-10 0-[address] [facility] HospitalUrine Rwcflizc1617-55-27 12:23:00* Test Item Value Reference Range Interpretation Comments Urine Bacteria (test code = 33201-2) MODERATE NONE [facility] HospitalUrine Epithelial Cmajn2816-13-23 12:23:00 * Test Item Value Reference Range Interpretation Comments Urine Epithelial Cells (test code = 59692-2) FEW NONE [facility] HospitalUrine Eqgcp0575-97-55 12:19:00* Test Item Value Reference Range Interpretation Comments Urine Color (test code = 5778-6) YELLOW YELLOW [facility] HospitalUrine Exiidvx7646-27-74 12:19:00* Test Item Value Reference Range Interpretation Comments Urine Clarity (test code = 16245-0) HAZY CLEAR [facility] Specific Qkpbczh2627-05-62 12:19:00 * Test Item Value Reference Range Interpretation Comments Urine Specific [place] (test code = 5811-5) 1.015 1.010-1.[address] [facility] HospitalUrine fV3595-50-69 12:19:00* Test Item Value Reference Range Interpretation Comments Urine pH (test code = 24536-0) 7 5-7 [facility] Leukocyte Qfjxewih8661-71-62 12:19:00* Test Item Value Reference Range Interpretation Comments Urine Leukocyte Esterase (test code = 5799-2) NEGATIVE NEGATIVE [facility] Itcnjgm2910-37-49 12:19:00* Test Item Value Reference Range Interpretation Comments Urine Nitrite (test code = 46235-6) NEGATIVE NEGATIVE [facility] Tediubz5194-14-00 12:19:00* Test Item Value Reference Range Interpretation Comments Urine Protein (test code = 5804-0) NEGATIVE NEGATIVE [facility] Glucose (UA)2017-06-29 12:19:00* Test Item Value Reference Range Interpretation Comments Urine Glucose (UA) (test code = 2349-9) NEGATIVE NEGATIVE [facility] Arlixee7945-55-77 12:19:00* Test Item Value Reference Range Interpretation Comments Urine Ketones (test code = 75938-8) NEGATIVE NEGATIVE [facility] Zgvjljzxtxsi4134-07-17 12:19:00* Test Item Value Reference Range Interpretation Comments Urine Urobilinogen (test code = 29940-0) 0.2 0.2-1 [facility] Tdumiftbc1108-27-72 12:19:00* Test Item Value Reference Range Interpretation Comments Urine Bilirubin (test code = 1978-6) NEGATIVE NEGATIVE [facility] HospitalUrine Ekkvs0150-77-70 12:19:00* Test Item Value Reference Range Interpretation Comments Urine Blood (test code = 34325-4) 1+ NEGATIVE [facility] HospitalUrine Xbibs4873-28-31 12:19:00* Test Item Value Reference Range Interpretation Comments Urine Color (test code = 5778-6) YELLOW YELLOW [facility] HospitalUrine Cncdcvh0915-15-52 12:19:00* Test Item Value Reference Range Interpretation Comments Urine Clarity (test code = 90783-0) HAZY CLEAR [facility] HospitalU[facility] Specific Fvzwmrf4819-62-36 12:19:00 * Test Item Value Reference Range Interpretation Comments Urine Specific [place] (test code = 5811-5) 1.015 1.010-1.[address] [facility] HospitalUrine eF5289-14-27 12:19:00* Test Item Value Reference Range Interpretation Comments Urine pH (test code = 19770-6) 7 5-7 [facility] HospitalU[facility] Leukocyte Ydmrysqr3945-45-83 12:19:00* Test Item Value Reference Range Interpretation Comments Urine Leukocyte Esterase (test code = 5799-2) NEGATIVE NEGATIVE [facility] HospitalU[facility] Uwoctdf6353-47-04 12:19:00* Test Item Value Reference Range Interpretation Comments Urine Nitrite (test code = 22108-4) NEGATIVE NEGATIVE [facility] HospitalUrine Qrraftn2106-91-12 12:19:00* Test Item Value Reference Range Interpretation Comments Urine Protein (test code = 5804-0) NEGATIVE NEGATIVE [facility] HospitalUrine Glucose (UA)2017-06-29 12:19:00* Test Item Value Reference Range Interpretation Comments Urine Glucose (UA) (test code = 2349-9) NEGATIVE NEGATIVE [facility] HospitalUrine Jydfycp8198-55-86 12:19:00* Test Item Value Reference Range Interpretation Comments Urine Ketones (test code = 92459-9) NEGATIVE NEGATIVE [facility] HospitalUrine Ejmskveainda2278-86-78 12:19:00* Test Item Value Reference Range Interpretation Comments Urine Urobilinogen (test code = 34604-7) 0.2 0.2-1 [facility] HospitalUrine Jxciqpcuq5319-31-29 12:19:00* Test Item Value Reference Range Interpretation Comments Urine Bilirubin (test code = 1978-6) NEGATIVE NEGATIVE [facility] HospitalUrine Zmoum5573-82-15 12:19:00* Test Item Value Reference Range Interpretation Comments Urine Blood (test code = 28084-0) 1+ NEGATIVE [facility] HospitalWhite Blood Asint2717-89-95 12:11:00* Test Item Value Reference Range Interpretation Comments White Blood Count (test code = 6690-2) 6.51 4.8-10.8 [facility] HospitalRed Blood Tkwgm8332-51-32 12:11:00* Test Item Value Reference Range Interpretation Comments Red Blood Count (test code = 789-8) 3.87 3.6-5.1 [facility] HospitalHemoglobin2017-12-10 12:11:00* Test Item Value Reference Range Interpretation Comments Hemoglobin (test code = 13427-3) 11.3 12.0-16.[address] [facility] HospitalHematocrit2017-12-10 12:11:00* Test Item Value Reference Range Interpretation Comments Hematocrit (test code = 4544-3) 35.7 34.2-44.1 [facility] HospitalMean Corpuscular Jkgmsw6183-60-37 12:11:00* Test Item Value Reference Range Interpretation Comments Mean Corpuscular Volume (test code = 787-2) 92.2 81-99 [facility] HospitalMean Corpuscular Oftuvyzfip2628-41-00 12:11:00* Test Item Value Reference Range Interpretation Comments Mean Corpuscular Hemoglobin (test code = 785-6) 29.2 28-32 [facility] HospitalMean Corpuscular Hemoglobin Concent 2017-06-29 12:11:00* Test Item Value Reference Range Interpretation Comments Mean Corpuscular Hemoglobin Concent (test code = 786-4) 31.7 31-35 [facility] HospitalRed Cell Distribution Sdhej4060-15-21 12:11:00* Test Item Value Reference Range Interpretation Comments Red Cell Distribution Width (test code = 00538-2) 14.6 11.7 -14.[address] [facility] HospitalPlatelet Zwdbr8024-39-31 12:11:00* Test Item Value Reference Range Interpretation Comments Platelet Count (test code = 777-3) 293 140-360 [facility] HospitalNeutrophils (%) (Auto)2017-06-29 12:11:00 * Test Item Value Reference Range Interpretation Comments Neutrophils (%) (Auto) (test code = 26985-4) 59.3 38.7-80.0 [facility] HospitalLymphocytes (%) (Auto)2017-06-29 12:11:00 * Test Item Value Reference Range Interpretation Comments Lymphocytes (%) (Auto) (test code = 736-9) 31.8 18.0-39.1 [facility] HospitalMonocytes (%) (Auto)2017-06-29 12:11:00* Test Item Value Reference Range Interpretation Comments Monocytes (%) (Auto) (test code = 5905-5) 6.9 4.4-11.3 [facility] HospitalEosinophils (%) (Auto)2017-06-29 12:11:00 * Test Item Value Reference Range Interpretation Comments Eosinophils (%) (Auto) (test code = 713-8) 1.4 0.0-6.0 [facility] HospitalBasophils (%) (Auto)2017-06-29 12:11:00* Test Item Value Reference Range Interpretation Comments Basophils (%) (Auto) (test code = 706-2) 0.3 0.0-1.0 [facility] HospitalIM GRANULOCYTES %2017-06-29 12:11:00* Test Item Value Reference Range Interpretation Comments IM GRANULOCYTES % (test code = IM GRANULOCYTES %) 0.3 0.0- 1.0 [facility] HospitalNeutrophils # (Auto)2017-06-29 12:11:00* Test Item Value Reference Range Interpretation Comments Neutrophils # (Auto) (test code = 751-8) 3.9 2.1-6.9 [facility] HospitalLymphocytes # (Auto)2017-06-29 12:11:00* Test Item Value Reference Range Interpretation Comments Lymphocytes # (Auto) (test code = 59153-9) 2.1 1.0-3.2 [facility] HospitalMonocytes # (Auto)2017-06-29 12:11:00* Test Item Value Reference Range Interpretation Comments Monocytes # (Auto) (test code = 742-7) 0.5 0.2-0.8 [facility] HospitalEosinophils # (Auto)2017-06-29 12:11:00* Test Item Value Reference Range Interpretation Comments Eosinophils # (Auto) (test code = 711-2) 0.1 0.0-0.4 [facility] HospitalBasophils # (Auto)2017-06-29 12:11:00* Test Item Value Reference Range Interpretation Comments Basophils # (Auto) (test code = 704-7) 0.0 0.0-0.1 [facility] HospitalAbsolute Immature Granulocyte (auto 2017-06-29 12:11:00* Test Item Value Reference Range Interpretation Comments Absolute Immature Granulocyte (auto (nimo t code = Absolute Immature Granulocyte (auto) 0.02 0-0.1 [facility] HospitalWhite Blood Hqdof2281-41-99 12:11:00* Test Item Value Reference Range Interpretation Comments White Blood Count (test code = 6690-2) 6.51 4.8-10.8 [facility] HospitalRed Blood Unqka1189-48-96 12:11:00* Test Item Value Reference Range Interpretation Comments Red Blood Count (test code = 789-8) 3.87 3.6-5.1 [facility] HospitalHemoglobin2017-12-10 12:11:00* Test Item Value Reference Range Interpretation Comments Hemoglobin (test code = 80594-6) 11.3 12.0-16.[address] [facility] HospitalHematocrit2017-12-10 12:11:00* Test Item Value Reference Range Interpretation Comments Hematocrit (test code = 4544-3) 35.7 34.2-44.1 [facility] HospitalMean Corpuscular Fgwimp5430-28-94 12:11:00* Test Item Value Reference Range Interpretation Comments Mean Corpuscular Volume (test code = 787-2) 92.2 81-99 [facility] HospitalMean Corpuscular Dxouhnwzky4005-44-80 12:11:00* Test Item Value Reference Range Interpretation Comments Mean Corpuscular Hemoglobin (test code = 785-6) 29.2 28-32 [facility] HospitalMean Corpuscular Hemoglobin Concent 2017-06-29 12:11:00* Test Item Value Reference Range Interpretation Comments Mean Corpuscular Hemoglobin Concent (test code = 786-4) 31.7 31-35 [facility] HospitalRed Cell Distribution Rwkso4629-57-72 12:11:00* Test Item Value Reference Range Interpretation Comments Red Cell Distribution Width (test code = 17900-3) 14.6 11.7 -14.[address] [facility] HospitalPlatelet Iyzxh1990-87-09 12:11:00* Test Item Value Reference Range Interpretation Comments Platelet Count (test code = 777-3) 293 140-360 [facility] HospitalNeutrophils (%) (Auto)2017-06-29 12:11:00 * Test Item Value Reference Range Interpretation Comments Neutrophils (%) (Auto) (test code = 62997-4) 59.3 38.7-80.0 [facility] HospitalLymphocytes (%) (Auto)2017-06-29 12:11:00 * Test Item Value Reference Range Interpretation Comments Lymphocytes (%) (Auto) (test code = 736-9) 31.8 18.0-39.1 [facility] HospitalMonocytes (%) (Auto)2017-06-29 12:11:00* Test Item Value Reference Range Interpretation Comments Monocytes (%) (Auto) (test code = 5905-5) 6.9 4.4-11.3 [facility] HospitalEosinophils (%) (Auto)2017-06-29 12:11:00 * Test Item Value Reference Range Interpretation Comments Eosinophils (%) (Auto) (test code = 713-8) 1.4 0.0-6.0 [facility] HospitalBasophils (%) (Auto)2017-06-29 12:11:00* Test Item Value Reference Range Interpretation Comments Basophils (%) (Auto) (test code = 706-2) 0.3 0.0-1.0 [facility] HospitalIM GRANULOCYTES %2017-06-29 12:11:00* Test Item Value Reference Range Interpretation Comments IM GRANULOCYTES % (test code = IM GRANULOCYTES %) 0.3 0.0- 1.0 [facility] HospitalNeutrophils # (Auto)2017-06-29 12:11:00* Test Item Value Reference Range Interpretation Comments Neutrophils # (Auto) (test code = 751-8) 3.9 2.1-6.9 [facility] HospitalLymphocytes # (Auto)2017-06-29 12:11:00* Test Item Value Reference Range Interpretation Comments Lymphocytes # (Auto) (test code = 05194-3) 2.1 1.0-3.2 [facility] HospitalMonocytes # (Auto)2017-06-29 12:11:00* Test Item Value Reference Range Interpretation Comments Monocytes # (Auto) (test code = 742-7) 0.5 0.2-0.8 [facility] HospitalEosinophils # (Auto)2017-06-29 12:11:00* Test Item Value Reference Range Interpretation Comments Eosinophils # (Auto) (test code = 711-2) 0.1 0.0-0.4 [facility] HospitalBasophils # (Auto)2017-06-29 12:11:00* Test Item Value Reference Range Interpretation Comments Basophils # (Auto) (test code = 704-7) 0.0 0.0-0.1 [facility] HospitalAbsolute Immature Granulocyte (auto 2017-06-29 12:11:00* Test Item Value Reference Range Interpretation Comments Absolute Immature Granulocyte (auto (nimo t code = Absolute Immature Granulocyte (auto) 0.02 [facility]0.1 [facility] [address] [address] Patient Name: RAFFI RIOS MR #: [id number] : 1970 Age/Sex: 46/F Req #: [id number] Adm Physician: Ordered by: AUDI GIRALDO M.D. Report #: [id number] Location: MRI Room/Bed: Procedure: [id number] MRI/MRI HIP LEFT WO Exam Juan Ramon e: Exam Time: REPORT STATUS: Signed TECHNI QUE: Magnetic resonance imaging of the LEFT HIP was performed WITHOUT injected contrast. HISTORY: Left hip pain COMPARISON: None available. FI NDINGS: Bone: No focal or infiltrative bone marrow replacing abnormality. No osteonecrosis or acute fracture. Femoroacetabular Joint: A cetabular labrum: No displaced labral tear. Articular Cartilage: No foc al defect. Muscle and tendons: Insertional tendinopathy of the gluteal ten dons on the greater trochanter with partial tearing of the gluteus minimus. Soft tissues: Otherwise unremarkable. IMPRESSION: Insertional t endinopathy of the left gluteal tendons on the greater trochanter with partial tearing of the gluteus minimus. Signed by: Dr. Dee Dee Nevarez M.D. on 09/18 1:11 PM Dictated By: DEE DEE NEVAREZ MD 1311 Transcribed By: MERA on 10/01/17 1311 COPY TO: AUDI GIRALDO M.D. MRI SPINE LUMBAR WO [facility] [address] [address] Patient Name: RAFFI RIOS MR #: [id number] : 1970 Age/Sex: 46/F Req #: [id number] Adm Physician: Ordered by: AUDI GIRALDO M.D. Report #: [id number] Location: MRI Room/Bed: Procedure: [id number] MRI/MRI SPINE LUMBAR WO Exam Date: Exam Time: REPORT STATUS: Signed Exa m: Lumbar spine MRI without IV contrast History: Polyneuropathy. Comparis on studies: None Technique: Sagittal, axial and coronal T2, sagittal T1, sagittal STIR and axial T2 FS. Intravenous contrast: None Findings: Number of lumbar vertebral bodies: 5. Alignment: Normal lordosis. Mild lum bar curvature convex to the left centered at L3-L4. Soft tissues: No T2 h yperintense inflammatory changes. A 1.4 cm T2 hyperintense lesion situated bet ween the left kidney and spleen is most likely a cyst. Paraspinal muscles: No signal abnormalities. Well-preserved. No atrophic changes Lower thor acic cord: Normal in signal and morphology. The tip of the conus is at L1. Cauda equina: No masses. No arachnoiditis. Vertebrae: No compression fractures, infection or neoplasm. Mild sclerotic changes along the inferior T1 1 endplate along the supramarginal Schmorl's node. Degenerative changes: Included thoracic spine: Right central disc extrusion at T10-T11 and this the thecal sac and results in mild canal stenosis. L1-L2: No abnormalit ies L2-L3: No abnormalities L3-L4: Mild bilateral facet arthrosis . Patent canal and foramina. L4-L5: Symmetric disc bulge and mild to mode rate bilateral facet arthrosis without significant canal or foraminal stenosis . L5-S1: Moderately degenerated disc with loss of disc height and loss of T2 disc signal. Grade 1 anterolisthesis of L5 on S1 with associated uncovered disc/disc bulge and moderate bilateral facet arthrosis with mild left foramin al stenosis. No canal or right foraminal stenosis. IMPRESSION: 1 . Grade 1 L5 degenerative spondylolisthesis with moderately degenerated disc and mild left foraminal stenosis L5-S1. 2. Facet arthrosis from L3 to S1. 3. Mild canal stenosis at T10-T11 due to a disc protrusion. 4. No l umbar canal stenosis or nerve root impingement. Signed by: Dr. Apolonia hernandez M.D. on 10/02/2017 8:56 AM Dictated By: APOLONIA CLEMENTS MD [facility] Signed By: APOLONIA CLEMENTS MD on 10/02/17855 Transcribed By: MERA on 0 10/02/17 08 COPY TO: AUDI GIRALDO M.D. MRI SPINE CERVICAL WO [place] [address] Patient Name: RAFFI RIOS MR #: [id number] : [birth year] Age/Sex: 46/F Req #: [id number] Adm Physician: Ordered by: AUDI GIRALDO M.D. Report #: [id number] Location: MRI Room/Bed : Procedure: [id number] MRI/MRI SPINE CERVICAL WO Renetta m Date: Exam Time: REPORT STATUS: Signed H istory: Chronic back pain Comparison studies: X-ray of the thoracic spine 08/18 Technique: Cervical: Sagittal T2, T1 and IR, axial T1. Postcontras t axial and sagittal T1 and, axial T2. Thoracic: Sagittal T2, T1 and IR. Ax ial T1 and, axial T2. Intravenous contrast: None Findings: Alig nment: Normal cervical lordosis. Normal thoracic kyphosis. No scoliosis. Cerv icomedullary junction: Patent foramen magnum. No Chiari one malformation. Soft tissues: No T2 hyperintense inflammatory changes. Partially visualized 1.2 cm cyst at the left kidney upper pole. Spinal cord: Normal from the foramen magnum to the tip of the conus at T12-L1 Vertebrae: Normal in height and signal intensity. No fractures, infection or neoplasm. Degenerative c hanges: Cervical spine: C2-C3: No abnormalities. C3-C4: No ab normalities. C4-C5: Central disc osteophyte complex results in mild canal stenosis without significant foraminal narrowing C5-C6: Disc degenerat ion with loss of T2 signal. Central disc osteophyte complex with mild impressi on on the thecal sac and without significant foraminal narrowing C6-C7: S mall central disc osteophyte, with mild impression on the thecal sac without s ignificant foraminal narrowing C7-T1: No abnormalities. Thoracic spine: 1. At T4-T5 left central disc protrusion with patent canal and foramin a. At T9-10 right central small disc protrusion indents the thecal sac without significant canal stenosis or foraminal narrowing. At T10-11 right subarticul ar disc fusion indents the thecal sac causing mild stenosis. 2. Disc deg eneration with loss of T2 signal from T1 through T12. Multiple small Schmorl n odes at the medial lower thoracic spine. 3. Grossly patent canal and isabela luz maria. IMPRESSION: 1. No acute cervical or thoracic abnormality. 2. Small central disc osteophyte complex from C4 through C7 results in mild impre ssion on the thecal sac without significant canal stenosis or foraminal narrow ing. 3. Small disc protrusions at T4-5 T9-10 and T10-11 without significant c anal stenosis or foraminal narrowing. Diffuse disc degeneration of the thoraci c spine as detailed above. Signed by: Alexandre Sarmiento on 09/26/2017 3:57 PM Dictated By: ZEFERINO ROCHE MD [facility] Signed By: ZEFERINO ROCHE MD on 09/26/171556 Transcribed By: MERA on 09/26/171556 COPY TO: AUDI GIRALDO M.D. MRI SPINE THORACIC WO [place] [address] Patient Name: RAFFI RIOS MR #: [id number] : [birth year] Age/Sex: 46/F Req #: [id number] Adm Physician: Ordered by: AUDI GIRALDO M.D. Report #: [id number] Location: MRI Room/Bed : Procedure: [id number] MRI/MRI SPINE THORACIC WO Renetta lyman Date: Exam Time: REPORT STATUS: Signed H istory: Chronic back pain Comparison studies: X-ray of the thoracic spine 08/18 Technique: Cervical: Sagittal T2, T1 and IR, axial T1. Postcontras t axial and sagittal T1 and, axial T2. Thoracic: Sagittal T2, T1 and IR. Ax ial T1 and, axial T2. Intravenous contrast: None Findings: Alig nment: Normal cervical lordosis. Normal thoracic kyphosis. No scoliosis. Cerv icomedullary junction: Patent foramen magnum. No Chiari one malformation. Soft tissues: No T2 hyperintense inflammatory changes. Partially visualized 1.2 cm cyst at the left kidney upper pole. Spinal cord: Normal from the foramen magnum to the tip of the conus at T12-L1 Vertebrae: Normal in height and signal intensity. No fractures, infection or neoplasm. Degenerative c hanges: Cervical spine: C2-C3: No abnormalities. C3-C4: No ab normalities. C4-C5: Central disc osteophyte complex results in mild canal stenosis without significant foraminal narrowing C5-C6: Disc degenerat ion with loss of T2 signal. Central disc osteophyte complex with mild impressi on on the thecal sac and without significant foraminal narrowing C6-C7: S mall central disc osteophyte, with mild impression on the thecal sac without s ignificant foraminal narrowing C7-T1: No abnormalities. Thoracic spine: 1. At T4-T5 left central disc protrusion with patent canal and foramin a. At T9-10 right central small disc protrusion indents the thecal sac without significant canal stenosis or foraminal narrowing. At T10-11 right subarticul ar disc fusion indents the thecal sac causing mild stenosis. 2. Disc deg eneration with loss of T2 signal from T1 through T12. Multiple small Schmorl n odes at the medial lower thoracic spine. 3. Grossly patent canal and isabela luz maria. IMPRESSION: 1. No acute cervical or thoracic abnormality. 2. Small central disc osteophyte complex from C4 through C7 results in mild impre ssion on the thecal sac without significant canal stenosis or foraminal narrow ing. 3. Small disc protrusions at T4-5 T9-10 and T10-11 without significant c anal stenosis or foraminal narrowing. Diffuse disc degeneration of the thoraci c spine as detailed above. Signed by: Alexandre Sarmiento on 09/26/2017 3:57 PM Dictated By: ZEFERINO ROCHE MD [employer] Signed By: ZEFERINO ROCHE MD on 09/26/171556 Transcribed By: MERA on 09/26/171556 COPY TO: AUDI GIRALDO M.D. HIP LEFT 2-3 VW (+/- PELVIS) [place] [address] Patient Name: RAFFI RIOS MR #: [id number] : 1970 Age/Sex: 46/F Req #: [id number] Adm Physician: Ordered by: DAISY APODACA MD Report #: [id number] Location: Room/Bed: Procedure: DX/HIP LEFT 2-3 VW (+/- PELVIS) E xam Date: Exam Time: REPORT STATUS: Signed EXAM: HIP LEFT 2-3 VW (+/- PELVIS) DATE: 08/18/2017 9:27 PM Time stamp on exa m: 2127 hours INDICATION: Fall, pain in left hip COMPARISON: None FINDI NGS: BONES: No acute fractures. JOINTS: Facet arthropathy of the low er lumbar spine. Mild degenerative changes of the bilateral hips. SOFT TI SSUES: Normal IMPRESSION: No evidence of a pelvic or left hip fracture. Signed by: Dr. Carline Armijo M.D. on 08/18/2017 9:40 PM Dict ated By: CARLINE ARMIJO MD 39 COPY TO: DAISY APODACA MD LOWER LEG RIGHT [place] [address] Patient Name: RAFFI RIOS MR #: [id number] : 1970 Age/Sex: 46/F Req #: [id number] Adm Physician: Ordered by: JOVON HAAS Report #: [id number] Location: ER Room/Bed: Procedure: DX/LOWER LEG RIGHT Exam Date : 08/18/17 Exam Time: 2030 REPORT STATUS: Enid d EXAM: LOWER LEG RIGHT, AP and lateral, 2 views DATE: 08/18/2017 8:28 PM T gómez stamp on exam: 2035 hours INDICATION: Fall, right lower leg pain COMPARI SON: None FINDINGS: BONES: No acute fractures. JOINTS: No malal ignment. SOFT TISSUES: Normal IMPRESSION: No right tibia or fibula r fracture. Signed by: Dr. Carline Armijo M.D. on 08/18/2017 9:32 PM Dictated By: CARLINE ARMIJO MD 31 Transcribed By: MERA on 08/18/172131 COPY TO: JOVON TRISTAN KNEE LEFT THREE VIEWS [place] [address] Patient Name: RAFFI RIOS MR #: [id number] : 1970 Age/Sex: 46/F Req #: [id number] Adm Physician: Ordered by: JOVON HAAS Report #: [id number] Location: ER Room/Bed: Procedure: [id number] DX/KNEE LEFT THREE VIEWS Exa m Date: 08/18/17 Exam Time: 2029 REPORT STATUS: Signed EXAM: KNEE LEFT THREE VIEWS, AP, crosstable lateral and oblique, 3 vi ews DATE: 08/18/2017 8:28 PM Time stamp on exam: 2036 hours INDICATION: Left knee pain COMPARISON: None FINDINGS: BONES: No acute fractures. JOINTS: No malalignment. SOFT TISSUES: Normal IMPRESSION: No e vidence of a left knee fracture Signed by: Dr. Carline Armijo M.D. o n 08/18/2017 9:34 PM Dictated By: CARLINE ARMIJO MD 33 Transcribed By: MERA on 08/18/172133 COPY TO: JOVON HAAS THORACIC SP 3V [place] [address] Patient Name: RAFFI RIOS MR #: [id number] : 1970 Age/Sex: 46/F Req #: [id number] Adm Physician: Ordered by: JOVON HAAS Report #: [id number] Location: ER Room/Be d: Procedure: [id number] DX/THORACIC SP 3V Exam Date: 08/18/17 Exam Time: 2029 REPORT STATUS: Signed EXAM: THORACIC SP 2V, AP and lateral DATE: 08/18/2017 8:28 PM Time stamp o n exam: 210 hours INDICATION: Fall, upper back pain COMPARISON: None F INDINGS: BONES: The alignment is within normal limits. No acute displac ed fractures. No lytic or blastic lesions. DISCS: Mild multilevel degen erative changes. JOINTS: The facet joints are unremarkable. SOFT TIS SUES: Surgical clips project over the left upper quadrant of the abdomen. IMPRESSION: No acute thoracic spine radiographic findings. Signed by: Dr. Carline Armijo M.D. on 08/18/2017 9:37 PM Dictated By: CARLINE GRAHAM MD 36 Transcribed By: MERA on 08/18/172136 COPY TO: JOVON HAAS CT ABDOMEN/PELVIS W [place] [address] Patient Name: RAFFI RIOS MR #: [id number] : 1970 Age/[facility]: 46[id number] Req #: [id number] Adm Physician: Ordered by: ELKIN LLOYD MD Report #: [id number] Location: ER Room/Bed: Procedure: [id number] CT/CT ABDOMEN/PELVIS W Exam Juan Ramon e: 06/29/17 Exam Time: 1250 REPORT STATUS: Sign ed EXAM: CT Abdomen and Pelvis WITH contrast INDICATION: Abdominal nidia n COMPARISON: None. TECHNIQUE: Abdomen and pelvis were scanned utilizing a multidetector helical scanner from the lung base to the pubic symphysis afte r administration of contrast. Coronal and sagittal reformations were obtained. Protocol: General survey IV CONTRAST: 100 mL of Isovue 370 ORAL CONT RAST: Gastroview 30 cc. COMPLICATIONS: None RADIATION DOSE: To familia Exam DLP: 331.2 mGy*cm. CTDIvol has been reviewed. It is below the limits set by the Radiation Protocol Committee (RPC). FINDINGS: LINES: None . Lower thorax: No parenchymal abnormality. No pneumothorax. No pleural effusion. Liver: No focal mass. No hepatomegaly. Normal parenchyma . The hepatic and portal veins are patent. Gallbladder: No gallstones. No g allbladder distention. Biliary tree: No intrahepatic duct dilation. No extrah epatic duct dilation. Spleen: No splenomegaly. No focal mass. Pancreas: No rmal parenchymal enhancement. No focal mass. Normal pancreatic duct. No per ipancreatic inflammatory changes. Kidneys: No obstructing calculi. No hyd ronephrosis. No solid enhancing mass. Simple cyst of the left kidney. No p erinephric soft tissue inflammatory changes. Adrenal glands: No adrenal nodules.. Bladder: Normal urinary bladder. Pelvic organs: Normal uter us. Normal ovaries. GI: No bowel wall thickening. No air-fluid levels. Postoperative changes of the stomach. The small bowel is normal. The colon is normal. Normal appendix. A moderate amount of retained feces limits intralu catherine evaluation of the colon. Peritoneum/retroperitoneum: No pneumoperi toneum. No ascites. No drainable fluid collection. Lymph nodes: No lymp hadenopathy. . Vessels: The abdominal aorta and iliac vessels are patent . The celiac, superior mesenteric, and inferior mesenteric arteries are paten t. Single bilateral renal arteries are patent. . Bones: No focal abn ormality. Degenerative changes of the lumbar spine. Soft tissues: No focal a bnormality. IMPRESSION: No acute abnormality of the abdomen and pelvis. Signed by: Dr. Kimberly Patiño M.D. on 06/29/2017 1:43 PM Dicta payal By: KIMBERLY PATIÑO MD 134 3 Transcribed By: MERA on 06/29/17 1343 COPY TO: ELKIN LLOYD MD
== END 2020-04-14 07:35 | disposition home or self-care (01) ==
LOC: ER 07:12
DX: H18.822 Corneal disorder due to contact lens, left eye (principal); H57.12 Ocular pain, left eye; E78.5 Hyperlipidemia, unspecified; F41.9 Anxiety disorder, unspecified; K21.9 Gastro-esophageal reflux disease without esophagitis
CPT/HCPCS: 99283

== ENCOUNTER → 2020-05-17 | Outpatient (CLI) | payer BC ==
[2020-05-17 15:10] LABS: ALBUMIN/GLOBULIN RATIO 1.3 (0.8-2.0); ANION GAP 13.8 mmol/L (8-16); CALCIUM 8.8 mg/dL (8.4-10.2); CREATININE, SERUM 1.04 mg/dL (0.57-1.11); POTASSIUM 3.8 mmol/L (3.5-5.1)
== END ==
LOC: LAB 14:41
PROVIDERS: ATTEND Internal Medicine Cardiovascular Disease
DX: N18.9 Chronic kidney disease, unspecified (principal)
CPT/HCPCS: 36415; 80053

== ENCOUNTER → 2020-07-17 | Outpatient (CLI) | payer OTHER ==
[~2020-07-17] MED LIST changes: +COVID-19 VACC, MRNA(MODERNA)/PF 100 MCG/0.5 ML VIAL IM ONE
== END ==
LOC: VACCPMC 10:31
DX: Z23 Encounter for immunization (principal); Z20.828 Contact with and (suspected) exposure to other viral communicable diseases

== ENCOUNTER 2020-08-15 10:47 | Emergency (ER) | payer BC, OTHER ==
[~2020-08-15] VITALS: Ht 160 cm; Wt 67.1 kg
[~2020-08-15 10:47] MED LIST changes: -COVID-19 VACC, MRNA(MODERNA)/PF 100 MCG/0.5 ML VIAL IM ONE
[2020-08-15] MEDS ORDERED: FAMOTIDINE 20 MG/2 ML VIAL IV STA (11:32)
[2020-08-15] MEDS ORDERED: ONDANSETRON HCL INJ 2MG/ML 2ML 2 MG/ML VIAL IV STA (11:32)
[2020-08-15] MEDS ORDERED: SODIUM CHLORIDE 0.9% 1000ML 1,000 ML IV STA (11:32)
[2020-08-15 12:18] LABS: BASOPHILS % 0.3 % (0.0-1.0); EOSINOPHILS # (AUTO) 0.2 (0.0-0.4); EOSINOPHILS % 2.8 % (0.0-6.0); HEMOGLOBIN 9.9 g/dL (12.0-16.0); LYMPHOCYTES # (AUTO) 1.2 (1.0-3.2); LYMPHOCYTES % 20.7 % (18.0-39.1); MEAN CORPUSCULAR HEMOGLOBIN 24.9 pg (28-32); MEAN CORPUSCULAR VOLUME 82.9 fL (81-99); MONOCYTES # (AUTO) 0.6 (0.2-0.8); MONOCYTES % 10.3 % (4.4-11.3); NEUTROPHILS # (AUTO) 3.8 (2.1-6.9); NEUTROPHILS % 65.6 % (38.7-80.0); PLATELET COUNT 340 x10e3/uL (140-360); RED BLOOD COUNT 3.98 x10e6/uL (3.6-5.1); RED CELL DISTRIBUTION WIDTH 15.7 % (11.7-14.4)
[2020-08-15 12:48] LABS: ALANINE AMINOTRANSFERASE 25 IU/L (0-55); ALBUMIN 3.7 g/dL (3.5-5.0); ALBUMIN/GLOBULIN RATIO 1.1 (0.8-2.0); ALKALINE PHOSPHATASE 71 IU/L (40-150); AMYLASE 51 U/L (25-125); ANION GAP 15.7 mmol/L (8-16); BLOOD UREA NITROGEN 17 mg/dL (7-26); BUN/CREATININE RATIO 17 (6-25); CALCIUM 8.6 mg/dL (8.4-10.2); CARBON DIOXIDE 25 mmol/L (22-29); CHLORIDE 102 mmol/L (98-107); CREATINE KINASE 59 IU/L (29-168); CREATININE, SERUM 0.98 mg/dL (0.57-1.11); EST GLOMERULAR FILTRATION RATE > 60 ML/MIN (60-); GLUCOSE 104 mg/dL (74-118); LIPASE 16 U/L (8-78); MAGNESIUM 1.8 MG/DL (1.3-2.1); POTASSIUM 3.7 mmol/L (3.5-5.1); SODIUM 139 mmol/L (136-145)
[2020-08-15 13:08] LABS: THYROID STIMULATING HORMONE 2.388 uIU/mL (0.350-4.940)
[2020-08-15 13:24] LABS: CLARITY,URINE CLEAR (CLEAR); COLOR,URINE YELLOW (YELLOW); KETONES,URINE 1+ (NEGATIVE); LEUKOCYTE ESTERASE ,URINE NEGATIVE (NEGATIVE); NITRITE,URINE NEGATIVE (NEGATIVE); PROTEIN,URINE DIPSTICK 2+ (NEGATIVE)
[2020-08-15 13:25] LABS: PREGNANCY TEST, URINE NEGATIVE (NEGATIVE)
[2020-08-15 13:34] LABS: BACTERIA,URINE FEW /HPF; EPITHELIAL CELLS,URINE FEW /LPF; MUCUS,URINE FEW (RARE)
[2020-08-15] MEDS ORDERED: LIDOCAINE VISC 2% SOLN 15 ML UDC PO ONE (14:00)
[2020-08-15] MEDS ORDERED: MAGNESIUM/ALUMINUM/SIMETHICONE 30 ML UDC PO ONE (14:00)
[2020-08-15] MEDS ORDERED: BELLADONNA ALK/PHENOBARBITAL 5 ML UDC PO ONE (14:00)
[2020-08-16] MEDS ORDERED: BUPRENORPHINE HC2 MG SL (12:33)
== END 2020-08-15 14:47 | disposition home or self-care (01) ==
LOC: ER 10:55
DX: K59.00 Constipation, unspecified (principal); R10.10 Upper abdominal pain, unspecified; F41.9 Anxiety disorder, unspecified; E78.5 Hyperlipidemia, unspecified; K21.9 Gastro-esophageal reflux disease without esophagitis; F32.9 Major depressive disorder, single episode, unspecified; F98.8 Other specified behavioral and emotional disorders with onset usually occurring in childhood and adolescence; R94.31 Abnormal electrocardiogram [ECG] [EKG]; Z98.84 Bariatric surgery status
CPT/HCPCS: 36415; 71045; 80053; 81001; 81025; 82150; 82550; 82553; 83690; 83735; 84443; 84484; 85025; 87086; 93005; 99284; J2405; J7030

== ENCOUNTER → 2020-08-16 | Outpatient (CLI) | payer OTHER ==
[~2020-08-16] MED LIST changes: +BUPRENORPHINE HC2 MG SL; +METOCLOPRAMIDE HCL 10 MG/2ML VIAL ONE; +PANTOPRAZOLE 40 MG 10ML VIAL ONE
== END ==
LOC: US 11:18
PROVIDERS: ATTEND Internal Medicine Gastroenterology
DX: R10.11 Right upper quadrant pain (principal)
CPT/HCPCS: 76700; J2765

== ENCOUNTER → 2020-08-17 | Day surgery (SDC) | payer OTHER ==
[~2020-08-17] MED LIST changes: +SIMETHICONE 40 MG/0.6 ML BTL ONE
[2020-08-17 08:35] VITALS: BP 110/76
[2020-08-17 09:36] LABS: % IRON SATURATION 8 % (15-50); IRON 35 ug/dL (50-170); TOTAL IRON BINDING CAPACITY 437 ug/dL (261-478); TRANSFERRIN 312 mg/dL (180-382)
== END | disposition home or self-care (01) ==
LOC: OR 05:52
PROVIDERS: ATTEND Internal Medicine Gastroenterology
DX: K29.70 Gastritis, unspecified, without bleeding (principal); K21.9 Gastro-esophageal reflux disease without esophagitis; Z98.84 Bariatric surgery status; K44.9 Diaphragmatic hernia without obstruction or gangrene; K31.89 Other diseases of stomach and duodenum; K20.90 Esophagitis, unspecified without bleeding; K22.8 Other specified diseases of esophagus; K59.09 Other constipation; K64.8 Other hemorrhoids; I10 Essential (primary) hypertension; F41.9 Anxiety disorder, unspecified; Z72.0 Tobacco use; Z68.27 Body mass index [BMI] 27.0-27.9, adult
CPT/HCPCS: 36415; 43239; 81025; 82607; 82746; 83540; 84466; 85045; C9113; J2765

== ENCOUNTER → 2020-08-23 | Outpatient (CLI) | payer OTHER ==
[~2020-08-23] MED LIST changes: +COVID-19 VACC, MRNA(MODERNA)/PF 100 MCG/0.5 ML VIAL IM ONE; -METOCLOPRAMIDE HCL 10 MG/2ML VIAL ONE; -PANTOPRAZOLE 40 MG 10ML VIAL ONE; -SIMETHICONE 40 MG/0.6 ML BTL ONE
== END | DRG 951 ==
LOC: VACCPMC 10:32
DX: Z23 Encounter for immunization (principal); Z20.822 Contact with and (suspected) exposure to COVID-19
CPT/HCPCS: 0012A; 91301

== ENCOUNTER 2021-01-20 13:14 | Emergency (ER) | payer OTHER ==
[~2021-01-20] VITALS: Ht 160 cm; Wt 67.1 kg
[~2021-01-20 13:14] MED LIST changes: -COVID-19 VACC, MRNA(MODERNA)/PF 100 MCG/0.5 ML VIAL IM ONE
[2021-01-20] MEDS ORDERED: KETOROLAC TROMETHAMINE 60 MG/2 ML VIAL IM ONE (13:45)
== END 2021-01-20 15:46 | disposition home or self-care (01) ==
LOC: ER 13:40
DX: M54.32 Sciatica, left side (principal)
CPT/HCPCS: 99282; J1885

== ENCOUNTER → 2021-02-14 | Outpatient (CLI) | payer OTHER | LOC: MRI 07:27 | PROVIDERS: ATTEND Family Medicine | DX: M54.42 Lumbago with sciatica, left side (principal); M54.41 Lumbago with sciatica, right side; M25.552 Pain in left hip; M25.551 Pain in right hip | CPT/HCPCS: 72148 ==

== ENCOUNTER → 2021-03-30 | Outpatient (CLI) | payer OTHER | LOC: RAD 10:41 | PROVIDERS: ATTEND Neurological Surgery | DX: M50.20 Other cervical disc displacement, unspecified cervical region (principal); M43.22 Fusion of spine, cervical region | CPT/HCPCS: 72052 ==

== ENCOUNTER → 2021-08-09 | Outpatient (CLI) | payer OTHER ==
[~2021-08-09] MED LIST changes: +COVID-19 VACC, MRNA(MODERNA)/PF 100 MCG/0.5 ML VIAL IM ONE
== END ==
LOC: VACCPMC 16:30
DX: Z23 Encounter for immunization (principal); Z20.822 Contact with and (suspected) exposure to COVID-19
CPT/HCPCS: 91301

== ENCOUNTER → 2021-08-17 | Outpatient (CLI) | payer BC ==
[~2021-08-17] MED LIST changes: -COVID-19 VACC, MRNA(MODERNA)/PF 100 MCG/0.5 ML VIAL IM ONE
[2021-08-17 07:30] LABS: BASOPHILS # (AUTO) 0.1 (0.0-0.1); BASOPHILS % 0.6 % (0.0-1.0); EOSINOPHILS # (AUTO) 0.2 (0.0-0.4); EOSINOPHILS % 2.3 % (0.0-6.0); HEMATOCRIT 35.8 % (34.2-44.1); HEMOGLOBIN 10.3 g/dL (12.0-16.0); LYMPHOCYTES # (AUTO) 2.5 (1.0-3.2); LYMPHOCYTES % 31.6 % (18.0-39.1); MEAN CORPUSCULAR HEMOGLOBIN 24.7 pg (28-32); MEAN CORPUSCULAR HGB CONC 28.8 g/dL (31-35); MEAN CORPUSCULAR VOLUME 85.9 fL (81-99); MONOCYTES # (AUTO) 0.7 (0.2-0.8); MONOCYTES % 8.1 % (4.4-11.3); NEUTROPHILS # (AUTO) 4.6 (2.1-6.9); PLATELET COUNT 422 x10e3/uL (140-360); RED BLOOD COUNT 4.17 x10e6/uL (3.6-5.1); RED CELL DISTRIBUTION WIDTH 16.4 % (11.7-14.4)
[2021-08-17 08:03] LABS: ALBUMIN 3.9 g/dL (3.5-5.0); ALBUMIN/GLOBULIN RATIO 1.1 (0.8-2.0); ANION GAP 11.7 mmol/L (8-16); CALCIUM 9.2 mg/dL (8.4-10.2); CHOL/HDL RATIO 4.6 (3.0-3.6); CREATININE, SERUM 0.82 mg/dL (0.57-1.11); POTASSIUM 3.7 mmol/L (3.5-5.1)
[2021-08-17 08:26] LABS: THYROID STIMULATING HORMONE 1.727 uIU/mL (0.350-4.940)
== END ==
LOC: LAB 07:20
PROVIDERS: ATTEND Family Medicine
DX: Z00.00 Encounter for general adult medical examination without abnormal findings (principal); K21.9 Gastro-esophageal reflux disease without esophagitis; R53.83 Other fatigue; E53.8 Deficiency of other specified B group vitamins; E55.9 Vitamin D deficiency, unspecified; F98.8 Other specified behavioral and emotional disorders with onset usually occurring in childhood and adolescence
CPT/HCPCS: 36415; 80053; 80061; 82607; 82652; 83735; 84443; 85025

== ENCOUNTER → 2021-12-07 | Outpatient (CLI) | payer BC | LOC: LAB 12:44 | PROVIDERS: ATTEND Nurse Practitioner Adult Health | DX: Z11.3 Encounter for screening for infections with a predominantly sexual mode of transmission (principal); Z11.4 Encounter for screening for human immunodeficiency virus [HIV]; Z11.59 Encounter for screening for other viral diseases | CPT/HCPCS: 36415; 86592; 86695; 86696; 86701; 86702; 86704; 86705; 86706; 86707; 86803; 87340; 87350 ==

== ENCOUNTER 2022-06-09 10:41 | Emergency (ER) | payer BC ==
[~2022-06-09] VITALS: Ht 157.5 cm; Wt 63.5 kg
[2022-06-09 11:17] LABS: CLARITY,URINE CLEAR (CLEAR); COLOR,URINE YELLOW (YELLOW); KETONES,URINE TRACE (NEGATIVE); LEUKOCYTE ESTERASE ,URINE NEGATIVE (NEGATIVE); NITRITE,URINE NEGATIVE (NEGATIVE); PROTEIN,URINE DIPSTICK NEGATIVE (NEGATIVE); URINE UROBILINOGEN 0.2 mg/dL (0.2 - 1)
[2022-06-09 11:27] LABS: BASOPHILS # (AUTO) 0.1 (0.0-0.1); BASOPHILS % 0.7 % (0.0-1.0); EOSINOPHILS # (AUTO) 0.2 (0.0-0.4); EOSINOPHILS % 3.4 % (0.0-6.0); HEMATOCRIT 36.2 % (34.2-44.1); HEMOGLOBIN 10.3 g/dL (12.0-16.0); LYMPHOCYTES # (AUTO) 1.6 (1.0-3.2); MEAN CORPUSCULAR HEMOGLOBIN 25.2 pg (28-32); MEAN CORPUSCULAR HGB CONC 28.5 g/dL (31-35); MEAN CORPUSCULAR VOLUME 88.5 fL (81-99); MONOCYTES # (AUTO) 0.5 (0.2-0.8); NEUTROPHILS # (AUTO) 4.6 (2.1-6.9); NEUTROPHILS % 65.6 % (38.7-80.0); PLATELET COUNT 401 x10e3/uL (140-360); RED BLOOD COUNT 4.09 x10e6/uL (3.6-5.1); RED CELL DISTRIBUTION WIDTH 17.5 % (11.7-14.4)
[2022-06-09] MEDS ORDERED: ONDANSETRON HCL INJ 2MG/ML 2ML 2 MG/ML VIAL ONE (11:33)
[2022-06-09] MEDS ORDERED: FAMOTIDINE 20 MG/2 ML VIAL IV ONE (11:33)
[2022-06-09] MEDS ORDERED: ONDANSETRON HCL INJ 2MG/ML 2ML 2 MG/ML VIAL IV STA (11:33)
[2022-06-09] MEDS ORDERED: FAMOTIDINE 20 MG/2 ML VIAL IV STA (11:33)
[2022-06-09 11:40] LABS: BACTERIA,URINE FEW /HPF; EPITHELIAL CELLS,URINE FEW /LPF; MUCUS,URINE FEW (RARE); RBC,URINE 0-5 /HPF (0-5)
[2022-06-09 11:41] LABS: ANION GAP 14.8 mmol/L (8-16); CALCIUM 8.6 mg/dL (8.4-10.2); CREATININE, SERUM 0.93 mg/dL (0.57-1.11); POTASSIUM 3.8 mmol/L (3.5-5.1)
[2022-06-09] MEDS ORDERED: SODIUM CHLORIDE 0.9% 1000ML 1,000 ML IV SCH (11:45)
[2022-06-09] MEDS ORDERED: IOPAMIDOL 370 MG/ML 100 ML INFUS..BTL INJ ONE (12:32)
[2022-06-09 14:19] LABS: ALBUMIN 3.9 g/dL (3.5-5.0); ALBUMIN/GLOBULIN RATIO 1.3 (0.8-2.0)
== END 2022-06-09 14:40 | disposition home or self-care (01) ==
LOC: ER 10:46
DX: R30.0 Dysuria (principal); K59.00 Constipation, unspecified; R10.30 Lower abdominal pain, unspecified; E78.5 Hyperlipidemia, unspecified; K21.9 Gastro-esophageal reflux disease without esophagitis; F41.9 Anxiety disorder, unspecified; Z98.84 Bariatric surgery status
CPT/HCPCS: 36415; 74177; 80053; 81001; 83690; 85025; 87086; 99284; J2405; Q9967

== ENCOUNTER → 2022-10-31 | Outpatient (CLI) | payer BC | LOC: MRI 14:25 | PROVIDERS: ATTEND Physical Medicine & Rehabilitation Pain Medicine | DX: M43.22 Fusion of spine, cervical region (principal) | CPT/HCPCS: 72141 ==

== ENCOUNTER → 2022-11-22 | Outpatient (CLI) | payer BC | LOC: MRI 09:00 | PROVIDERS: ATTEND Physical Medicine & Rehabilitation Pain Medicine | DX: M54.16 Radiculopathy, lumbar region (principal) | CPT/HCPCS: 72148 ==